=== PATIENT | female | born 1950 | race Caucasian/White ===

== ENCOUNTER → 2017-02-14 | Outpatient (CLI) | payer MEDICARE, MEDICAID ==
[~2017-02-14] MED LIST: ACETAMINOPHEN325 M2 PO; ALBUTEROL-1 PUFF/14. IN; ALDACTONE 50MG50 MG PO; ALLERGY10 MG PO; AMARYL1 MG PO; AMITRIPTYLINE 550 MG PO; AMITRIPTYLINE50 MG PO; AMLODIPINE10 M2 PO; AMOXICILLIN 50500 MG PO; ASPIRIN 81MG TA81 MG PO; ATIVAN GENERIC0.5 MG PO; BAYER ASPIRIN C81 MG PO; BISOPROLOL 5MG T5 MG PO; BISOPROLOL FUMA10 MG PO; BISOPROLOL10 MG PO; BUMETANIDE2 MG PO; BUSPAR 5MG TAB5 MG PO; CARDIZEM CD240 MG PO; CARDIZEM GENERI30 MG PO; CARVEDILOL25 MG PO; CEFTIN250 MG PO; CEFTRIAXONE IV; COUMADIN5 MG PO; COUMADIN7.5 MG PO; COZAAR100 MG PO; DIGITEK0.25 MG PO; DIGITEK125 MCG PO; DIGOX0.125 MG PO; DIGOX0.25 MG PO; DIGOXIN0.125 MG PO; DIGOXIN0.25 MG PO; DILTIAZEM HCL60 MG PO; DOCUSATE SODIU100 MG PO; EPCLUSA 400 MG1 EACH PO; FAMOTIDINE 20MG20 MG PO; FENOFIBRATE160 MG PO; FENTANYL 225 MCG/EAC TP; FERROUS SULFAT325 MG PO; FLEXERIL10 MG PO; FLEXERIL5 MG PO; FLONASE 50 MCG16 GM; FSBS FS; FUROSEMIDE 20MG20 MG PO; FUROSEMIDE40 MG PO; GABAPENTIN300 MG PO; GLIMEPIRIDE 2MG2 MG PO; GLUCOPHAGE1000 MG PO; HABITROL21 MG/24 H TD; HUMALOG100 U/ML SC; HUMULIN R100 UNITS/ SC; HYDROCODONE BIT1 T39 PO; IBUPROFEN800 MG PO; IMDUR 30MG. TAB30 MG PO; INSULIN GL100 UNITS/ SC; KEFLEX 500MG.500 MG PO; LACTULOSE10 GM/15 M PO; LASIX 40MG. TAB40 MG PO; LEVOTHYROXINE0.05 MG PO; LISINOPRIL2.5 M1 PO; LISINOPRIL20 MG PO; LISINOPRIL40 MG PO; LORAZEPAM0.5 MG/TAB PO; LORAZEPAM1 MG/TABLE PO; LORAZEPAM1 POW PO; LOSARTAN POTAS100 MG PO; LOVAZA1 GM PO; LOVENOX 6060 MG/0.6 SC; LYRICA150 M1 PO; LYRICA50 MG PO; METFORMIN1000 MG PO; MIRALAX17 GM/PACK PO; MOTRIN 400MG.400 MG PO; MOTRIN800 MG PO; MULTAQ400 M1 PO; NITROGLYCERIN0.4 MG SL; NORVASC10 MG PO; NOVOLIN 70/30 710 ML SC; NOVOLOG MI100 UNITS/ SC; NYSTATIN SU60 ML/BOT PO; ONDANSETRON 4MG4 M1 PO; OXYCODONE 5MG TA5 MG PO; OXYCODONE HCL10 M1 PO; PAROXETINE20 MG PO; PAXIL20 MG NG; PAXIL40 M1 PO; PEPCID 20MG TAB20 MG PO; PERCOCET 10 MG1 EACH PO; PHENERGAN25 M3 PO; PLAVIX 75MG TAB75 MG PO; POTASSIUM CHLO10 ME3 PO; PREDNISONE 20MG20 MG PO; PREMIERPRO SC; PRILOSEC OTC20 MG PO; PRILOSEC20 M1 PO; PROMETHAZINE W180 ML PO; Prilosec20 MG PO; RISPERDAL 0.20.25 MG PO; ROBITUSSIN10 ML/UDC PO; ROCEPHIN 1 GM VI1 GM IV; ROPINIROLE HYDRO1 MG PO; SPIRONOLACTONE25 MG PO; TIZANIDINE HCL 44 MG PO; TIZANIDINE4 MG PO; TRAMADOL 50MG T1 PAK PO; TRAMADOL 50MG T50 MG PO; TRAMADOL50 M1 PO; TRICOR145 MG NG; TYLENOL ES500 MG PO; VICOPROFEN 7.51 TAB PO; VITAMIN D31000 IU PO; VITAMIN D32000 IU PO; VITAMIN D5000 IU PO; WARFARIN 3MG TAB3 MG PO; WARFARIN SOD5 MG PO; WARFARIN SODIU7.5 MG PO; WARFARIN SODIUM4 MG PO; ZANAFLEX4 MG PO; ZEBETA10 MG PO; ZESTRIL40 M1 PO; ZETIA10 MG PO; [UNRECOGNIZED DRUG - OTHER] OP
[2017-02-14 16:55] LABS: HEMOGLOBIN 12.8 g/dL (12.2-16.2); LYMPH # 3.1 K/mm3 (0.7-4.5); LYMPH % 38.4 % (10-50.0)
[2017-02-14 18:00] LABS: BUN 36 mg/dL (7-18)
[2017-02-14 18:20] LABS: GFR (ESTIMATED) 30 ML/MIN (59-)
== END ==
LOC: LAB 16:31
PROVIDERS: Emergency Medicine
DX: R53.83 Other fatigue (principal)

== ENCOUNTER → 2017-04-12 | Outpatient (CLI) | payer MEDICARE, MEDICAID | LOC: LAB 01:29 | DX: R04.0 Epistaxis (principal) ==

== ENCOUNTER → 2017-04-14 | Outpatient (CLI) | payer MEDICARE, MEDICAID | LOC: LAB 08:21 | DX: Z79.01 Long term (current) use of anticoagulants (principal); Z51.81 Encounter for therapeutic drug level monitoring ==

== ENCOUNTER → 2017-05-03 | Outpatient (CLI) | payer MEDICARE, MEDICAID ==
[~2017-05-03] MED LIST changes: +CLOPIDOGREL75 MG PO; +DILTIAZEM 180180 MG PO; +HUMULIN10 ML SC; +LYRICA200 MG PO; +TRAMADOL 50MG T50 M1 PO; +VANCOCIN125 MG PO; -WARFARIN SODIUM4 MG PO
== END ==
LOC: LAB 07:33
DX: Z79.01 Long term (current) use of anticoagulants (principal); Z51.81 Encounter for therapeutic drug level monitoring

== ENCOUNTER 2017-05-10 20:04 | Inpatient (IN) | payer MEDICARE, MEDICAID ==
[~2017-05-10] VITALS: Ht 165.1 cm; Wt 66.4 kg
[~2017-05-10 20:04] MED LIST changes: -CLOPIDOGREL75 MG PO; -DILTIAZEM 180180 MG PO; -HUMULIN10 ML SC; -TRAMADOL 50MG T50 M1 PO; -VANCOCIN125 MG PO
[2017-05-10 20:08] VITALS: BP 132/86
--- OUTSIDE RECORDS SUMMARY | 2017-05-10 20:28 | External Medical Summary Rpt | CCD ---
Author Author , MANOJ Organization MANOJ Address Unknown Phone [email or web address] Care Team Providers Care Curriculum Assistant Principal Name Role Phone Galen Marcos MD, Unavailable Unavailable Galen TSAI, Unavailable Unavailable Danielle TSAI Purpose Continuity of Care Document - 02-15-2013 through 2016 Problems Code Diagnosis DOS Provider Status [id number] Chest pain [facility] [id number] Diabetes [facility] type 2 [facility] 462 Sore throat [facility] 786.7 [id number] Chronic [facility] B19.20 UNSPECIFIED VIRAL HEPATITIS C WITHOUT HEPATIC COMA E10.9 TYPE 1 DIABETES MELLITUS WITHOUT COMPLICATIO NS E11.9 TYPE 2 DIABETES MELLITUS WITHOUT COMPLICATIO NS E16.2 HYPOGLYCEMI A, UNSPECIFIED E86.0 DEHYDRATION E87.1 HYPO-OSMOLA LITY AND HYPONATREMI A E87.5 HYPERKALEMI A G89.18 OTHER ACUTE POSTPROCEDU RAL PAIN I21.4 NON-ST ELEVATION (NSTEMI) MYOCARDIAL INFARCTION I25.10 ATHSCL HEART DISEASE OF [place] CORONARY ARTERY W/O ANG PCTRS I48.91 UNSPECIFIED ATRIAL FIBRILLATIO N L02.91 CUTANEOUS ABSCESS, UNSPECIFIED M19.031 PRIMARY OSTEOARTHRI TIS, RIGHT WRIST M79.604 PAIN IN RIGHT LEG M79.605 PAIN IN LEFT LEG N12 TUBULO-INTE RSTITIAL NEPHRITIS, NOT SPCF ACUTE OR CHRONIC N30.90 CYSTITIS, UNSPECIFIED WITHOUT HEMATURIA N39.0 URINARY TRACT INFECTION, SITE NOT SPECIFIED R07.89 OTHER CHEST PAIN R07.9 CHEST PAIN, UNSPECIFIED R10.9 UNSPECIFIED ABDOMINAL PAIN R41.0 DISORIENTAT ION, UNSPECIFIED R41.82 ALTERED MENTAL STATUS, UNSPECIFIED R51 HEADACHE R55 SYNCOPE AND COLLAPSE R60.9 EDEMA, UNSPECIFIED R73.9 HYPERGLYCEM IA, UNSPECIFIED R74.8 ABNORMAL LEVELS OF OTHER SERUM ENZYMES R79.1 ABNORMAL COAGULATION PROFILE R79.89 OTHER SPECIFIED ABNORMAL FINDINGS OF BLOOD CHEMISTRY R94.5 ABNORMAL RESULTS OF LIVER FUNCTION STUDIES S00.83XA CONTUSION OF OTHER PART OF HEAD, INITIAL ENCOUNTER S20.212A CONTUSION OF LEFT FRONT WALL OF THORAX, INITIAL ENCOUNTER S36.92XA CONTUSION OF UNSPECIFIED INTRA-ABDOM INAL ORGAN, INIT ENCNTR Z79.01 CORRECTION (CURRENT) USE OF ANTICOAGULA NTS Z95.2 PRESENCE OF PROSTHETIC HEART VALVE Allergies, Adverse Reactions, Alerts Type Drug Allergy Adverse Reaction to Substance Substance Reaction Severity No Known Allergies - Unknown Mild Nka Medications Na ND Rx Da Fi Fi Am Da Di Ph RX Ph St me C No te ll ll ou ys ag ar # ys at rm s nt no ma ic us Or Da si cy ia de te s n re d Ib 62 08 0 No up 58 -2 ro 40 6- Lo fe 74 20 ng n 60 13 er 40 1 0M Ac G ti Ta ve bl et Sa 63 08 0 No li 80 -2 ne 70 6- Lo 10 20 ng Fl 07 13 er us 5 h Ac 10 ti ML ve Sy ri ng e Po 00 08 0 No ta 24 -2 ss 50 6- Lo iu 05 20 ng m 80 13 er Ch 1 lo Ac ri ti de ve 20 ME Q Ta bl e OX 00 08 0 No YC 40 -2 OD 60 6- Lo ON 51 20 ng E- 26 13 er AC 2 ET Ac AM ti IN ve OP HE N 5- 32 5 Vital Signs 02-15-2013 20:12 Name Value Interpretat Reference Comment ion Range BP 70 mm[Hg] Diastolic BP Systolic 152 mm[Hg] Heart 68 /min Rate/Pulse O2% 98 % Respiratory 18 /min Rate 02-15-2013 19:34 Name Value Interpretat Reference Comment ion Range Body 98.3 [degF] Temperature 02-15-2013 17:09 Name Value Interpretat Reference Comment ion Range BP 80 mm[Hg] Diastolic BP Systolic 148 mm[Hg] Heart 79 /min Rate/Pulse O2% 98 % Respiratory 16 /min Rate Results Labs Lab Lab Date Result Refere Interp Status Commen Order Detail nces retati t Range on Whole blood INR measurement (05-03-2017 07:36) Prothro = 72.0 9.4-11. complet mbin 017 SECONDS 8 ed time 07:36 (PT) in platele t poor p Comment: NOTIFICATION RESULT Whole = 6.54 0.9-1.1 complet blood 017 ed INR 07:36 measure ment Comment: NOTIFICATION RESULT Comment: INDICATION INR RANGE Comment: Comment: THERAPY FOR DVT, PE, ATRIAL FIB; 2.0 - 3.0 Comment: PROPHYLAXIS FOR VTE Comment: Comment: THERAPY FOR MECHANICAL HEART 2.5 - 3.5 Comment: VALVE; PREVENTION OF SYSTEMIC Comment: EMBOLISM SECONDARY TO AMI DIARRHEA PANEL,PCR (04-27-2017 20:00) Stool NOT NOT complet Vibrio 017 DETECTE DETECTE ed species 20:00 D NOT DETECTE identif D L ication by o Vibrio NOT NOT complet species 017 DETECTE DETECTE ed 20:00 D NOT nucleic DETECTE acid D L assay by PCR Vibrio NOT NOT complet cholera 017 DETECTE DETECTE ed e DNA 20:00 D NOT detecti DETECTE on by D L probe a Escheri NOT NOT complet sarah 017 DETECTE DETECTE ed coli 20:00 D NOT shiga-l DETECTE kayley D L toxin STX1 a Caliciv NOT NOT complet irus ID 017 DETECTE DETECTE ed 20:00 D NOT DETECTE D L Salmone NOT NOT complet lla 017 DETECTE DETECTE ed species 20:00 D NOT DNA DETECTE detecti D L on by prob Rotavir NOT NOT complet us RNA 017 DETECTE DETECTE ed detecti 20:00 D NOT on by DETECTE probe D L and tar Stool NOT NOT complet Plesiom 017 DETECTE DETECTE ed onas 20:00 D NOT shigell DETECTE oides D L DNA detec Stool DETECTE NOT complet norovir 017 D DETECTE ed us 20:00 DETECTE assay D L Stool NOT NOT complet Giardia 017 DETECTE DETECTE ed 20:00 D NOT lamblia DETECTE D L antigen detecti on Entamoe NOT NOT complet ba 017 DETECTE DETECTE ed histoly 20:00 D NOT shiva DETECTE detecti D L on Escheri NOT NOT complet sarah 017 DETECTE DETECTE ed coli 20:00 D NOT O157 DETECTE stool D L culture Escheri NOT NOT complet sarah 017 DETECTE DETECTE ed coli 20:00 D NOT Shiga-l DETECTE kayley D L toxin 1 assa Escheri NOT NOT complet sarah 017 DETECTE DETECTE ed coli 20:00 D NOT detecti DETECTE on D L E coli NOT NOT complet detecti 017 DETECTE DETECTE ed on 20:00 D NOT DETECTE D L Cyclosp NOT NOT complet ora 017 DETECTE DETECTE ed cayetan 20:00 D NOT esis DETECTE detecti D L on Cryptos NOT NOT complet poridiu 017 DETECTE DETECTE ed m ag 20:00 D NOT detecti DETECTE on D L Stool DETECTE NOT complet Clostri 017 D DETECTE ed dium 20:00 DETECTE diffici D L le A and B toxi Comment: RESULTS CALLED TO: MARGARETTE W 04/28/17 1838 O'Kathleen Madsen Campylo NOT NOT complet bacter 017 DETECTE DETECTE ed antibod 20:00 D NOT y assay DETECTE D L Astrovi NOT NOT complet ely 017 DETECTE DETECTE ed detecti 20:00 D NOT on DETECTE D L Aeromon NOT NOT complet as 017 DETECTE DETECTE ed salmoni 20:00 D NOT luis carlos DETECTE detecti D L on Stool NOT NOT complet adenovi 017 DETECTE DETECTE ed ely 40 20:00 D NOT and 41 DETECTE antigen D L assay Whole blood INR measurement (04-20-2017) Prothro = 27.2 9.4-11. complet mbin 017 SECONDS 8 ed time (PT) in platele t poor p Whole = 2.49 0.9-1.1 complet blood 017 ed INR measure ment Comment: INDICATION INR RANGE Comment: Comment: THERAPY FOR DVT, PE, ATRIAL FIB; 2.0 - 3.0 Comment: PROPHYLAXIS FOR VTE Comment: Comment: THERAPY FOR MECHANICAL HEART 2.5 - 3.5 Comment: VALVE; PREVENTION OF SYSTEMIC Comment: EMBOLISM SECONDARY TO AMI Whole blood INR measurement (04-14-2017) Prothro = 23.1 9.4-11. complet mbin 017 SECONDS 8 ed time (PT) in platele t poor p Whole = 2.12 0.9-1.1 complet blood 017 ed INR measure ment Comment: INDICATION INR RANGE Comment: Comment: THERAPY FOR DVT, PE, ATRIAL FIB; 2.0 - 3.0 Comment: PROPHYLAXIS FOR VTE Comment: Comment: THERAPY FOR MECHANICAL HEART 2.5 - 3.5 Comment: VALVE; PREVENTION OF SYSTEMIC Comment: EMBOLISM SECONDARY TO AMI Whole blood INR measurement (04-12-2017 01:00) Prothro = 40.7 9.4-11. complet mbin 017 SECONDS 8 ed time 01:00 (PT) in platele t poor p Whole = 3.72 0.9-1.1 complet blood 017 ed INR 01:00 measure ment Comment: INDICATION INR RANGE Comment: Comment: THERAPY FOR DVT, PE, ATRIAL FIB; 2.0 - 3.0 Comment: PROPHYLAXIS FOR VTE Comment: Comment: THERAPY FOR MECHANICAL HEART 2.5 - 3.5 Comment: VALVE; PREVENTION OF SYSTEMIC Comment: EMBOLISM SECONDARY TO AMI COMPREHENSIVE METABOLIC PANEL (02-15-2013 18:10) Glucose 67 74-106 complet 013 mg/dL ed Bld-mCn 18:10 c BUN 13 7-18 complet Bld-mCn 013 mg/dL ed c 18:10 Creat 0.9 0.6-1.0 complet SerPl-m 013 mg/dL ed Cnc 18:10 ESTIMAT 48 50-200 complet ED 013 ML/MIN ed CREATIN 18:10 INE CLEARAN CE GFR 63 59- complet (ESTIMA 013 ML/MIN ed GILDARDO) 18:10 Sodium 139 136-145 complet SerPl-s 013 mmoL/L ed Cnc 18:10 Potassi 3.2 3.5-5.1 complet um 013 mmoL/L ed SerPl-s 18:10 Cnc Chlorid 103 98-107 complet e 013 mmoL/L ed SerPl-s 18:10 Cnc CO2 02-15-2 30 21.0-32 complet SerPl-s 013 mmoL/L .0 ed Cnc 18:10 Calcium 02-15-2 8.9 8.5-10. complet 013 mg/dL 1 ed SerPl-m 18:10 Cnc Prot 02-15-2 7.8 6.4-8.2 complet SerPl-m 013 gm/dL ed Cnc 18:10 Albumin 02-15-2 3.2 3.4-5.0 complet 013 gm/dL ed SerPl-m 18:10 Cnc Globuli 2 4.6 1.3-3.2 complet n 013 gm/dL ed Ser-mCn 18:10 c Albumin 2 0.7 UNK 1.1-1.8 complet /Glob 013 ed SerPl-m 18:10 Rto Bilirub 0.5 0.2-1.0 complet 013 mg/dL ed SerPl-m 18:10 Cnc AST 14 U/L 15-37 complet SerPl-c 013 ed Cnc 18:10 ALT 31 U/L 30-65 complet SerPl-c 013 ed Cnc 18:10 ALP 2 124 U/L 50-136 complet SerPl-c 013 ed Cnc 18:10 PROTIME/INR (02-15-2013 18:10) PROTHRO 02-15-2 12.4 9.9-11. complet MBIN 013 SECONDS 6 ed TIME 18:10 INR Bld 1.16 0.9-1.1 complet 013 UNK ed 18:10 Encounters Encounter Start End Date Code Location Performer Type Date Emergency LINA REED (ER) 3 16:19 3 20:12 [facility] GINO
--- OUTSIDE RECORDS SUMMARY | 2017-05-10 20:28 | External Medical Summary Rpt | CCD ---
Author Author , MANOJ ARANDA Address Unknown Phone [email or web address] Now Immunization Name Date Rout CVX Reac Dose Comm Prov Is Faci e tion ent ider Refu lity Give sed n PPV2 07-1 33 0.5 Hist [facility] 3 0-20 mL oric 1 1 16 al Info rmat ion - Sour ce Unsp ecif ied
--- OUTSIDE RECORDS SUMMARY | 2017-05-10 20:28 | External Medical Summary Rpt | CCD ---
Author Author , MANOJ ARANDA Address Unknown Phone [email or web address] Immunization Name Date Rout CVX Reac Dose Comm Prov Is Faci e tion ent ider Refu lity Give sed n PPV2 07-1 33 0.5 Hist [facility] No [facility] 3 0-20 mL oric 1 1 16 al Info rmat ion - Sour ce Unsp ecif ied
--- OUTSIDE RECORDS SUMMARY | 2017-05-10 20:28 | External Medical Summary Rpt | CCD ---
Author Author , MANOJ Organization MANOJ Address Unknown Phone .[email or web address] Care Team Providers Care Research Program Internship Name Role Phone Galen Marcos MD, Unavailable Unavailable Galen TSAI, Unavailable Unavailable Danielle TSAI Purpose Continuity of Care Document - 02-15-2013 through 2016 Problems Code Diagnosis DOS Provider Status [id number] Chest pain [facility] [id number] Diabetes [facility] type 2 [facility] 462 Sore throat [facility] 786.7 [id number] Chronic [facility] B19.20 UNSPECIFIED VIRAL HEPATITIS C WITHOUT HEPATIC COMA E10.9 TYPE 1 DIABETES MELLITUS WITHOUT COMPLICATIO NS E11.9 TYPE 2 DIABETES MELLITUS WITHOUT COMPLICATIO NS E16.2 HYPOGLYCEMI A, UNSPECIFIED E86.0 DEHYDRATION E87.1 HYPO-OSMOLA LITY AND HYPONATREMI A E87.5 HYPERKALEMI A G89.18 OTHER ACUTE POSTPROCEDU RAL PAIN I21.4 NON-ST ELEVATION (NSTEMI) MYOCARDIAL INFARCTION I25.10 ATHSCL HEART DISEASE OF [place] CORONARY ARTERY W/O ANG PCTRS I48.91 UNSPECIFIED [...] UNSPECIFIED INTRA-ABDOM INAL ORGAN, INIT ENCNTR Z79.01 ALF (CURRENT) USE OF ANTICOAGULA NTS Z95.2 PRESENCE [...] LINA REED (ER) 3 16:19 3 20:12 [facility] G[place]
--- OUTSIDE RECORDS SUMMARY | 2017-05-10 20:32 | External Medical Summary Rpt ---
Author Author [employer], [facility] Address Unknown Phone Unavailable Results INR in Blood by Coagulation assay Observa Value Referen Units Interpr Notes Date tion ce etation Range INR in 0.9 - 1.1 No High May 03 Blood by informati NOTIFICAT 2017 7:36 Coagulati on in ION AM on assay source RESULT data INDIC ATION INR RANGETHER APY FOR DVT, PE, ATRIAL FIB; 2.0 - 3.0PROPHY LAXIS FOR VTETHERAP Y FOR MECHANICA L HEART 2.5 - 3.5VALVE; PREVENTIO N OF SYSTEMICE MBOLISM SECONDARY TO AMI Prothromb 9.4 - SECONDS High May 03 in time 11.8 NOTIFICAT 2017 7:36 (PT) in ION AM Platelet RESULT poor plasma by Coagulati on assay DIARRHEA PANEL,PCR Observa Value Referen Units Interpr Notes Date tion ce etation Range Adenovi NOT NOT No No No Nov 5 ely DETECTE DETECTE informa informa informa 2016 40+41 D tion in tion in tion in 8:00 PM Ag source source source [Presen data data data ce] in Stool Aeromon NOT NOT No No No Nov 5 as DETECTE DETECTE informa informa informa 2016 salmoni D tion in tion in tion in 8:00 PM luis carlos source source source [Presen data data data ce] in Unspeci fied specime n Astrovi NOT NOT No No No Nov 5 ely DETECTE DETECTE informa informa informa 2017 [Presen D tion in tion in tion in 8:00 PM ce] in source source source Stool data data data by Electro n microsc opy Campylo NOT NOT No No No Nov 5 bacter DETECTE DETECTE informa informa informa 2016 sp Ab D tion in tion in tion in 8:00 PM [Presen source source source ce] in data data data Serum Clostri DETECTE NOT No Abnorma RESULTS Nov 5 dium D DETECTE informa l CALLED 2017 diffici tion in TO: 8:00 PM le source MARGARETTE toxin data W A+B [Presen 7 1838 ce] in [place], Stool Kathleen Cryptos NOT NOT No No No Nov 5 poridiu DETECTE DETECTE informa informa informa 2017 m sp Ag D tion in tion in tion in 8:00 PM source source source [Presen data data data ce] in Unspeci fied specime n Cyclosp NOT NOT No No No Nov 5 ora DETECTE DETECTE informa informa informa 2017 cayetan D tion in tion in tion in 8:00 PM stephanie source source source [Presen data data data ce] in Unspeci fied specime n Escheri NOT NOT No No No Nov 5 sarah DETECTE DETECTE informa informa informa 2017 coli D tion in tion in tion in 8:00 PM [Presen source source source ce] in data data data Unspeci fied specime n by Culture FDA method Escheri NOT NOT No No No Nov 5 sarah DETECTE DETECTE informa informa informa 2017 coli D tion in tion in tion in 8:00 PM [Presen source source source ce] in data data data Unspeci fied specime n by Culture FDA method Escheri NOT NOT No No No Nov 5 sarah DETECTE DETECTE informa informa informa 2017 coli D tion in tion in tion in 8:00 PM Shiga-l source source source kayley data data data toxin 1 assa Escheri NOT NOT No No No Nov 5 sarah DETECTE DETECTE informa informa informa 2017 coli D tion in tion in tion in 8:00 PM [id number] source source source data data data [Presen ce] in Stool by Organis m specifi c culture Entamoe NOT NOT No No No Nov 5 ba DETECTE DETECTE informa informa informa 2017 histoly D tion in tion in tion in 8:00 PM shiva source source source [Presen data data data ce] in Stool by Trichro me stain Giardia NOT NOT No No No Nov 5 DETECTE DETECTE informa informa informa 2017 lamblia D tion in tion in tion in 8:00 PM Ag source source source [Presen data data data ce] in Stool Norovir DETECTE NOT No Abnorma No Nov 5 us Ag D DETECTE informa l informa 2017 [Presen tion in tion in 8:00 PM ce] in source source Stool data data Stool NOT NOT No No No Nov 5 Plesiom DETECTE DETECTE informa informa informa 2017 onas D tion in tion in tion in 8:00 PM shigell source source source oides data data data DNA detec Rotavir NOT NOT No No No Nov 5 us RNA DETECTE DETECTE informa informa informa 2017 detecti D tion in tion in tion in 8:00 PM on by source source source probe data data data and tar Salmone NOT NOT No No No Nov 5 lla sp DETECTE DETECTE informa informa informa 2017 DNA D tion in tion in tion in 8:00 PM [Identi source source source fier] data data data in Unspeci fied specime n by Probe & target amplifi cation method Caliciv NOT NOT No No No Nov 5 irus DETECTE DETECTE informa informa informa 2017 [Identi D tion in tion in tion in 8:00 PM fier] source source source in data data data Stool by Electro n microsc opy Escheri NOT NOT No No No Nov 5 sarah DETECTE DETECTE informa informa informa 2017 coli D tion in tion in tion in 8:00 PM [Presen source source source ce] in data data data Unspeci fied specime n by Culture FDA method Escheri NOT NOT No No No Nov 5 sarah DETECTE DETECTE informa informa informa 2017 coli D tion in tion in tion in 8:00 PM SXT source source source gene+H7 data data data gene [Identi fier] in Unspeci fied specime n by Probe & target amplifi cation method Vibrio NOT NOT No No No Nov 5 cholera DETECTE DETECTE informa informa informa 2017 e DNA D tion in tion in tion in 8:00 PM [Presen source source source ce] in data data data Unspeci fied specime n by Probe & target amplifi cation method Vibrio NOT NOT No No No Nov 5 sp DNA DETECTE DETECTE informa informa informa 2016 [Identi D tion in tion in tion in 8:00 PM fier] source source source in data data data Unspeci fied specime n by Probe & target amplifi cation method Vibrio NOT NOT No No No Nov 5 sp DETECTE DETECTE informa informa informa 2016 identif D tion in tion in tion in 8:00 PM ied in source source source Stool data data data by Halley m nikita c culture INR in Blood by Coagulation assay Observa Value Referen Units Interpr Notes Date tion ce etation Range INR in 0.9 - 1.1 No High INDICATIO Apr 20 Blood by informati N 2016 Coagulati on in on assay source INR data RANGETHER APY FOR DVT, PE, ATRIAL FIB; 2.0 - 3.0PROPHY LAXIS FOR VTETHERAP Y FOR MECHANICA L HEART 2.5 - 3.5VALVE; PREVENTIO N OF SYSTEMICE MBOLISM SECONDARY TO AMI Prothromb 9.4 - SECONDS High No Apr 20 in time 11.8 informati 2016 (PT) in on in Platelet source poor data plasma by Coagulati on assay INR in Blood by Coagulation assay Observa Value Referen Units Interpr Notes Date tion ce etation Range INR in 0.9 - 1.1 No High INDICATIO Apr 14 Blood by informati N 2016 Coagulati on in on assay source INR data RANGETHER APY FOR DVT, PE, ATRIAL FIB; 2.0 - 3.0PROPHY LAXIS FOR VTETHERAP Y FOR MECHANICA L HEART 2.5 - 3.5VALVE; PREVENTIO N OF SYSTEMICE MBOLISM SECONDARY TO AMI Prothromb 9.4 - SECONDS High No Apr 14 in time 11.8 informati 2016 (PT) in on in Platelet source poor data plasma by Coagulati on assay INR in Blood by Coagulation assay Observa Value Referen Units Interpr Notes Date tion ce etation Range INR in 0.9 - 1.1 No High INDICATIO Apr 12 Blood by informati N 2016 1:00 Coagulati on in AM on assay source INR data RANGETHER APY FOR DVT, PE, ATRIAL FIB; 2.0 - 3.0PROPHY LAXIS FOR VTETHERAP Y FOR MECHANICA L HEART 2.5 - 3.5VALVE; PREVENTIO N OF SYSTEMICE MBOLISM SECONDARY TO AMI Prothromb 9.4 - SECONDS High No Apr 12 in time 11.8 informati 2017 1:00 (PT) in on in AM Platelet source poor data plasma by Coagulati on assay Comprehensive metabolic 2000 panel in Serum or Plasma Observa Value Referen Units Interpr Notes Date tion ce etation Range Albumin/G 1.1 - 1.8 No Low No Feb 14 lobulin informati informati 2016 3:00 [Mass on in on in PM ratio] in source source Serum or data data Plasma Albumin 3.4 - 5.0 gm/dL Normal No Feb 14 [Mass/vol informati 2016 3:00 ume] in on in PM Serum or source Plasma data Alkaline 46 - 116 U/L High No Feb 14 phosphata informati 2016 3:00 se on in PM [Enzymati source c data activity/ volume] in Serum or Plasma Bilirubin 0.2 - 1.0 mg/dL Normal No Feb 14 .total informati 2016 3:00 [Mass/vol on in PM ume] in source Serum or data Plasma Urea 7 - 18 mg/dL High No Feb 14 nitrogen informati 2016 3:00 [Mass/vol on in PM ume] in source Serum or data Plasma Calcium 8.5 - mg/dL Normal No Feb 14 [Mass/vol 10.1 informati 2016 3:00 ume] in on in PM Serum or source Plasma data Chloride 98 - 107 mmoL/L Low No Feb 14 [Moles/vo informati 2016 3:00 lume] in on in PM Serum or source Plasma data Carbon 21.0 - mmoL/L Normal No Feb 14 dioxide, 32.0 informati 2016 3:00 total on in PM [Moles/vo source lume] in data Serum or Plasma Creatinin 0.55 - mg/dL High No Feb 14 e 1.02 informati 2016 3:00 [Mass/vol on in PM ume] in source Serum or data Plasma Estimated 59- ML/MIN Low REFERENCE Feb 14 RANGE: 2016 3:00 glomerula >60 PM r ML/MIN/1. filtratio 73 SQUARE n rate METERSIf (GF this patient is -A merican, then multiply theresult by 1.210. Globulin 1.3 - 3.2 gm/dL High No Feb 14 [Mass/vol informati 2016 3:00 ume] in on in PM Serum source data Glucose 74 - 106 mg/dL High No Feb 14 [Mass/vol informati 2016 3:00 ume] in on in PM Serum or source Plasma data Potassium 3.5 - 5.1 mmoL/L Normal No Feb 142016 3:00 [Moles/vo on in PM lume] in source Serum or data Plasma Sodium 136 - 145 mmoL/L Low No Feb 14 [Moles/vo 2016 3:00 lume] in on in PM Serum or source Plasma data Aspartate 15 - 37 U/L Normal No Feb 142016 3:00 aminotran on in PM sferase source [Enzymati data c activity/ volume] in Serum or Plasma Alanine 12 - 78 U/L Normal No Feb 14 aminotran 2016 3:00 sferase on in PM [Enzymati source c data activity/ volume] in Serum or Plasma Protein 6.4 - 8.2 gm/dL High No Feb 14 [Mass/vol informati 2016 3:00 ume] in on in PM Serum or source Plasma data CBC W Auto Differential panel in Blood Observa Value Referen Units Interpr Notes Date tion ce etation Range Basophils 0 - 0.2 K/MM3 Normal No Feb 142016 3:00 [#/volume on in PM ] in source Blood by data Automated count Basophils 0.1 - 2.0 % Normal No Feb 142016 3:00 leukocyte on in PM s in source Blood by data Automated count Eosinophi 0.0 - 0.4 K/mm3 Normal No Feb 14 ls 2016 3:00 [#/volume on in PM ] in source Blood by data Automated count Eosinophi 0.1 - % Normal Feb 14 ls/100 12.0 informati 2016 3:00 leukocyte on in PM s in source Blood by data Automated count Granulocy 1.8 - 7.8 K/mm3 Normal No Feb 14 brynn ati 2016 3:00 [#/volume on in PM ] in source Blood by data Automated count Granulocy 37.0 - % Normal No Feb 14 brynn/100 80.0 informati 2016 3:00 leukocyte on in PM s in source Blood by data Automated count Hematocri 37.0 - % Normal Feb 14 t [Volume 47.0 ati 2016 3:00 on in PM Fraction] source of Blood data Hemoglobi 12.2 - g/dL No Feb 14 n 16.2 informati informati 2016 3:00 [Mass/vol on in on in PM ume] in source source Blood data data Lymphocyt 0.7 - 4.5 K/mm3 Normal No Feb 14 es inform2016 3:00 [#/volume on in PM ] in source Unspecifi data ed specimen by Automated count Lymphocyt 10 - 50.0 % Normal No Feb 14 es inform2016 3:00 [#/volume on in PM ] in source Unspecifi data ed specimen by Automated count Erythrocy 27 - 31.2 pg Low No Feb 14 te mean inform2016 3:00 corpuscul on in PM ar source hemoglobi data n [Entitic mass] Erythrocy 31.8 - g/dl Low No Feb 14 te mean 35.4 inform2016 3:00 corpuscul on in PM ar source hemoglobi data n concentra tion [Mass/vol ume] by Automated count Erythrocy 82.2 - fl Normal No Feb 14 te mean 97.8 informati 2016 3:00 corpuscul on in PM ar volume source [Entitic data volume] by Automated count Monocytes 0.1 - 1.0 K/mm3 Normal No Feb 14 inform2016 3:00 [#/volume on in PM ] in source Blood by data Automated count Monocytes 1.7 - 9.3 % Normal No Feb 14 /100 inform2016 3:00 leukocyte on in PM s in source Blood by data Automated count Platelet 7.4 - fl Normal No Feb 14 mean 10.4 inform2016 3:00 volume on in PM [Entitic source volume] data in Blood by Automated count Platelets 142 - 424 K/mm3 Normal No Feb 14 inform2016 3:00 [#/volume on in PM ] in source Blood data Erythrocy 4.2 - 5.4 M/mm3 Normal No Feb 14 brynn informati 2016 3:00 [#/volume on in PM ] in source Amniotic data fluid Erythrocy 11.5 - % Normal No Feb 14 te 17.5 informati 2016 3:00 distribut on in PM ion width source [Entitic data volume] by Automated count Leukocyte 4.8 - K/MM3 Normal No Feb 14 s 10.8 informati 2016 3:00 [#/volume on in PM ] in source Blood data Drugs identified in Urine by Screen method Observa Value Referen Units Interpr Notes Date tion ce etation Range Positive urine drug screen samples are stored for 7 days. Contact the Lab if confirmation of positives is needed. Ampheta NEGATIV <1000 ng/mL No No Feb 10 mine E informa informa 2017 [Presen tion in tion in ce] in source source Urine data data by Screen method Barbitura <200 ng/mL No No Feb 10 brynn informati informati 2017 [Mass/vol on in on in ume] in source source Urine by data data Screen method Benzodiaz 200 ng/mL ng/mL No No Feb 10 epines informati informati 2016 [Mass/vol on in on in ume] in source source Serum or data data Plasma by Screen method Cocaine <300 ng/g No No Feb 10 [Mass/vol informati informati 2016 ume] in on in on in Unspecifi source source ed data data specimen Methadone <300 ng/mL No No Feb 10 informati informati 2017 [Mass/vol on in on in ume] in source source Unspecifi data data ed specimen Opiates <300 ng/mL No No Feb 10 [Mass/vol informati informati 2016 ume] in on in on in Unspecifi source source ed data data specimen Phencycli <25 ng/mL No No Feb 10 dine informati informati 2016 [Mass/vol on in on in ume] in source source Unspecifi data data ed specimen 11-Hydr NEGATIV <50 ng/mL No No Feb 10 oxy E informa informa 2017 delta-9 tion in tion in source source tetrahy data data drocann abinol [Presen ce] in Unspeci fied specime n Glucose [Mass/volume] in Capillary blood by Glucometer Observa Value Referen Units Interpr Notes Date tion ce etation Range Glucose 70 - 110 mg/dl High No Jan 03 [Mass/vol informati 2016 ume] in on in 11:46 AM Capillary source blood by data Glucomete r INR in Blood by Coagulation assay Observa Value Referen Units Interpr Notes Date tion ce etation Range IS PATIENT ON ANTICOAGULANTS? Y LIST ANTICOAGULANTS: COUMADIN INR in 0.9 - 1.1 No High INDICATIO Jan 03 Blood by informati N 2016 9:38 Coagulati on in AM on assay source INR data RANGETHER APY FOR DVT, PE, ATRIAL FIB; 2.0 - 3.0PROPHY LAXIS FOR VTETHERAP Y FOR MECHANICA L HEART 2.5 - 3.5VALVE; PREVENTIO N OF SYSTEMICE MBOLISM SECONDARY TO AMI Prothromb 9.4 - SECONDS High No Jan 03 in time 11.8 informati 2017 9:38 (PT) in on in AM Platelet source poor data plasma by Coagulati on assay Glucose [Mass/volume] in Capillary blood by Glucometer Observa Value Referen Units Interpr Notes Date tion ce etation Range Glucose 70 - 110 mg/dl High No Dec 14 [Mass/vol informati 2016 6:06 ume] in on in AM Capillary source blood by data Glucomete r Glucose [Mass/volume] in Capillary blood by Glucometer Observa Value Referen Units Interpr Notes Date tion ce etation Range Glucose 70 - 110 mg/dl High No Jan 02 [Mass/vol informati 2016 8:56 ume] in on in PM Capillary source blood by data Glucomete r Glucose [Mass/volume] in Capillary blood by Glucometer Observa Value Referen Units Interpr Notes Date tion ce etation Range Glucose 70 - 110 mg/dl High No Jan 02 [Mass/vol informati 2016 5:18 ume] in on in PM Capillary source blood by data Glucomete r Glucose [Mass/volume] in Capillary blood by Glucometer Observa Value Referen Units Interpr Notes Date tion ce etation Range Glucose 70 - 110 mg/dl High No Jan 02 [Mass/vol informati 2016 ume] in on in 12:16 PM Capillary source blood by data Glucomete r INR in Blood by Coagulation assay Observa Value Referen Units Interpr Notes Date tion ce etation Range IS PATIENT ON ANTICOAGULANTS? Y LIST ANTICOAGULANTS: WARFARIN ENOXAPARIN PTT RESULTS MUST BE CALLED IF PT ON HEPARIN!!! Y INR in 0.9 - 1.1 No High INDICATIO Jan 02 Blood by informati N 2016 8:54 Coagulati on in AM on assay source INR data RANGETHER APY FOR DVT, PE, ATRIAL FIB; 2.0 - 3.0PROPHY LAXIS FOR VTETHERAP Y FOR MECHANICA L HEART 2.5 - 3.5VALVE; PREVENTIO N OF SYSTEMICE MBOLISM SECONDARY TO AMI Prothromb 9.4 - SECONDS High No Jan 02 in time 11.8 informati 2017 8:54 (PT) in on in AM Platelet source poor data plasma by Coagulati on assay Glucose [Mass/volume] in Capillary blood by Glucometer Observa Value Referen Units Interpr Notes Date tion ce etation Range Glucose 70 - 110 mg/dl High No Jan 02 [Mass/vol informati 2016 6:39 ume] in on in AM Capillary source blood by data Glucomete r Basic metabolic panel in Blood Observa Value Referen Units Interpr Notes Date tion ce etation Range Urea 7 - 18 mg/dL High No Jan 02 nitrogen informati 2016 5:25 [Mass/vol on in AM ume] in source Serum or data Plasma Calcium 8.5 - mg/dL Normal No Jan 02 [Mass/vol 10.1 informati 2016 5:25 ume] in on in AM Serum or source Plasma data Chloride 98 - 107 mmoL/L Normal No Jan 02 [Moles/vo informati 2016 5:25 lume] in on in AM Serum or source Plasma data Carbon 21.0 - mmoL/L Normal No Jan 02 dioxide, 32.0 informati 2016 5:25 total on in AM [Moles/vo source lume] in data Serum or Plasma Creatinin 0.55 - mg/dL No No Jan 02 e 1.02 informati informati 2016 5:25 [Mass/vol on in on in AM ume] in source source Serum or data data Plasma Creatinin 50 - 200 ML/MIN No No Jan 02 e renal informati informati 2016 5:25 clearance on in on in AM source source predicted data data by Cockcroft -Gault formula Estimated 59- ML/MIN Low REFERENCE Jan 02 RANGE: 2017 5:25 glomerula >60 AM r ML/MIN/1. filtratio 73 SQUARE n rate METERSIf (GF this patient is -A merican, then multiply theresult by 1.210. Glucose 74 - 106 mg/dL High No Jan 02 [Mass/vol informati 2016 5:25 ume] in on in AM Serum or source Plasma data Potassium 3.5 - 5.1 mmoL/L Normal No Jan 02 informati 2016 5:25 [Moles/vo on in AM lume] in source Serum or data Plasma Sodium 136 - 145 mmoL/L Normal No Jan 02 [Moles/vo informati 2016 5:25 lume] in on in AM Serum or source Plasma data Glucose [Mass/volume] in Capillary blood by Glucometer Observa Value Referen Units Interpr Notes Date tion ce etation Range Glucose 70 - 110 mg/dl High No Jan 01 [Mass/vol informati 2016 ume] in on in 10:12 PM Capillary source blood by data Glucomete r Glucose [Mass/volume] in Capillary blood by Glucometer Observa Value Referen Units Interpr Notes Date tion ce etation Range Glucose 70 - 110 mg/dl High No Jan 01 [Mass/vol informati 2016 5:25 ume] in on in PM Capillary source blood by data Glucomete r Glucose [Mass/volume] in Capillary blood by Glucometer Observa Value Referen Units Interpr Notes Date tion ce etation Range Glucose 70 - 110 mg/dl High No Jan 01 [Mass/vol informati 2016 ume] in on in 12:17 PM Capillary source blood by data Glucomete r Activated clotting time in Blood by Coagulation assay Observa Value Referen Units Interpr Notes Date tion ce etation Range Activated 74 - 125 SEC High No Jan 01 clotting alert informati 2017 time in on in 10:42 AM Blood by source Coagulati data on assay INR in Blood by Coagulation assay Observa Value Referen Units Interpr Notes Date tion ce etation Range IS PATIENT ON ANTICOAGULANTS? Y LIST ANTICOAGULANTS: ENOXAPARIN INR in 0.9 - 1.1 No High INDICATIO Jan 01 Blood by informati N 2017 6:15 Coagulati on in AM on assay source INR data RANGETHER APY FOR DVT, PE, ATRIAL FIB; 2.0 - 3.0PROPHY LAXIS FOR VTETHERAP Y FOR MECHANICA L HEART 2.5 - 3.5VALVE; PREVENTIO N OF SYSTEMICE MBOLISM SECONDARY TO AMI Prothromb 9.4 - SECONDS High No Jan 01 in time 11.8 informati 2017 6:15 (PT) in on in AM Platelet source poor data plasma by Coagulati on assay Glucose [Mass/volume] in Capillary blood by Glucometer Observa Value Referen Units Interpr Notes Date tion ce etation Range Glucose 70 - 110 mg/dl High No Jan 01 [Mass/vol informati 2016 6:10 ume] in on in AM Capillary source blood by data Glucomete r Glucose [Mass/volume] in Capillary blood by Glucometer Observa Value Referen Units Interpr Notes Date ti ce etation Range Glucose 70 - 110 mg/dl High No Dec 31 [Mass/vol informati 2016 8:59 ume] in on in PM Capillary source blood by data Glucomete r Glucose [Mass/volume] in Capillary blood by Glucometer Observa Value Referen Units Interpr Notes Date ti etation Range Glucose 70 - 110 mg/dl High No Dec 31 [Mass/vol alert informati 2016 4:54 ume] in on in PM Capillary source blood by data Glucomete r Angiotensin converting enzyme [Enzymatic activity/volume] in Serum or Plasma Observa Value Referen Units Interpr Notes Date ti ce etation Range Angiotens 14 - 82 U/L No Performed Dec 31 in informati at: CB 2016 4:01 convertin on in - [facility] PM g enzyme source [Enzymati data [id number] c [address] activity/ Road, volume] [place], in Serum [place] or Plasma [id number] Specimen Preparation Assistant: Juan Hawk PhD, Phone: [phone] Cobalamin (Vitamin B12) [Mass/volume] in Serum Observa Value Referen Units Interpr Notes ti ce etation Range Cobalamin 211 - 946 pg/mL No Performed Dec 31 (Vitamin informati at: CB 2016 4:01 B12) on in - [facility] PM [Mass/vol source ume] in data [id number], [place], [place] [id number] Specimen Preparation Assistant: Juan Hawk PhD, Phone: [phone] Folate [Mass/volume] in Serum or Plasma Observa Value Referen Units Interpr Notes ti ce etation Range Folate >3.0 ng/mL No A serum Dec 31 [Mass/vol informati folate 2016 4:01 ume] in on in concentra PM Serum or source tion of Plasma data less than 3.1 ng/mL isconside red to represent clinical deficienc y. Protein Electrophoresis Observa Value Referen Units Interpr Notes Date ti ce etation Range Protein 6.0 - 8.5 g/dL No No Dec 31 [Mass/vol informati informati 2016 4:01 ume] in on in on in PM Serum or source source Plasma data data Please Comment . No No Protein Dec 31 note: informa informa 2017 tion in tion in electro 4:01 PM source source phoresi data data s scan will follow via compute r,mail, or infection prevention specialist deliver Lacy rmed at: - [facility] [id number] Directo r: Juan acevedo PhD, Phone: [phone] Albumin 2.9 - 4.4 g/dL Low No Dec 31 [Mass/vol informati 2016 4:01 ume] in on in PM Serum or source Plasma by data Electroph oresis Alpha 1 0.0 - 0.4 g/dL No No Dec 31 globulin informati informati 2016 4:01 [Mass/vol on in on in PM ume] in source source Serum or data data Plasma by Electroph oresis Alpha 2 0.4 - 1.0 g/dL No No Dec 31 globulin informati informati 2016 4:01 [Mass/vol on in on in PM ume] in source source Serum or data data Plasma by Electroph oresis Beta 0.7 - 1.3 g/dL High No Dec 31 globulin informati 2016 4:01 [Mass/vol on in PM ume] in source Serum or data Plasma by Electroph oresis Gamma 0.4 - 1.8 g/dL High No Dec 31 globulin informati 2017 4:01 [Mass/vol on in PM ume] in source Serum or data Plasma by Electroph oresis Protein.m Not g/dL No No Dec 31 onoclonal Observed informati informati 2016 4:01 on in on in PM [Mass/vol source source ume] in data data Serum or Plasma by Electroph oresis Globulin 2.2 - 3.9 g/dL High No Dec 31 [Mass/vol informati 2017 4:01 ume] in on in PM Serum by source calculati data on Albumin/G 0.7 - 1.7 No Low No Dec 31 lobulin informati informati 2016 4:01 [Mass on in on in PM ratio] in source source Serum or data data Plasma Hemoglobin A1c in Blood Observa Value Referen Units Interpr Notes Date tion ce etation Range Hemoglo 10.0 0.0 - % High < 6% Dec 31 bin A1c 7.0 NON-CHERYL 2017 in BETIC 4:01 PM Blood LEVEL< 7% CONTROL LED DIABETI C LEVEL> 8% POORLY CONTROL LED DIABETI C LEVEL INR in Blood by Coagulation assay Observa Value Referen Units Interpr Notes Date tion ce etation Range IS PATIENT ON ANTICOAGULANTS? Y LIST ANTICOAGULANTS: COUMADIN INR in 0.9 - 1.1 No High INDICATIO Dec 31 Blood by informati N 2016 2:30 Coagulati on in PM on assay source INR data RANGETHER APY FOR DVT, PE, ATRIAL FIB; 2.0 - 3.0PROPHY LAXIS FOR VTETHERAP Y FOR MECHANICA L HEART 2.5 - 3.5VALVE; PREVENTIO N OF SYSTEMICE MBOLISM SECONDARY TO AMI Prothromb 9.4 - SECONDS High No Dec 31 in time 11.8 informati 2017 2:30 (PT) in on in PM Platelet source poor data plasma by Coagulati on assay Glucose [Mass/volume] in Capillary blood by Glucometer Observa Value Referen Units Interpr Notes Date ti etation Range Glucose 70 - 110 mg/dl High No Dec 31 [Mass/vol alert informati 2017 ume] in on in 11:35 AM Capillary source blood by data Glucomete r Glucose [Mass/volume] in Capillary blood by Glucometer Observa Value Referen Units Interpr Notes Date ti etation Range Glucose 70 - 110 mg/dl High No Dec 31 [Mass/vol informati 2017 6:36 ume] in on in AM Capillary source blood by data Glucomete r Troponin I.cardiac [Mass/volume] in Serum or Plasma Observa Value Referen Units Interpr Notes Date ti ce etation Range Troponin 0.00 - ng/mL High 0.04 - Dec 31 I.cardiac 0.06 0.49 IS 2017 6:28 AN AM [Mass/vol INDETERMI ume] in NANT Serum or ZONEAnd Plasma can be consisten t with the following diseases: Trauma Criticall y ill patients Quiñones >30% TBSACHF Hypothyro idism Amyloidos isHyperte nsion Myocardit is SepsisHyp otension Rhabdomyo lysis Vital exhaust.P ostop surgery Pulmonary embolism CVARenal failure Acute neurologi cordell disease Atrial fib. Basic metabolic panel in Blood Observa Value Referen Units Interpr Notes Date ti ce etation Range Urea 7 - 18 mg/dL High No Dec 31 nitrogen informati 2016 6:28 [Mass/vol on in AM ume] in source Serum or data Plasma Calcium 8.5 - mg/dL Normal No Dec 31 [Mass/vol 10.1 informati 2017 6:28 ume] in on in AM Serum or source Plasma data Chloride 98 - 107 mmoL/L Normal No Dec 31 [Moles/vo informati 2016 6:28 lume] in on in AM Serum or source Plasma data Carbon 21.0 - mmoL/L Normal No Dec 31 dioxide, 32.0 informati 2016 6:28 total on in AM [Moles/vo source lume] in data Serum or Plasma Creatinin 0.55 - mg/dL High No Dec 31 e 1.02 informati 2017 6:28 [Mass/vol on in AM ume] in source Serum or data Plasma Creatinin 50 - 200 ML/MIN Low No Dec 31 e renal informati 2017 6:28 clearance on in AM source predicted data by Cockcroft -Gault formula Estimated 59- ML/MIN Low REFERENCE Dec 31 RANGE: 2017 6:28 glomerula >60 AM r ML/MIN/1. filtratio 73 SQUARE n rate METERSIf (GF this patient is -A merican, then multiply theresult by 1.210. Glucose 74 - 106 mg/dL High No Dec 31 [Mass/vol informati 2016 6:28 ume] in on in AM Serum or source Plasma data Potassium 3.5 - 5.1 mmoL/L Normal No Dec 31 informati 2016 6:28 [Moles/vo on in AM lume] in source Serum or data Plasma Sodium 136 - 145 mmoL/L Normal No Dec 31 [Moles/vo informati 2016 6:28 lume] in on in AM Serum or source Plasma data CBC W Auto Differential panel in Blood Observa Value Referen Units Interpr Notes Date tion ce etation Range Basophils 0 - 0.2 K/MM3 Normal No Dec 31 informati 2016 6:28 [#/volume on in AM ] in source Blood by data Automated count Basophils 0.1 - 2.0 % Normal No Dec 31 informati 2016 6:28 leukocyte on in AM s in source Blood by data Automated count Eosinophi 0.0 - 0.4 K/mm3 Normal No Dec 31 ls informati 2016 6:28 [#/volume on in AM ] in source Blood by data Automated count Eosinophi 0.1 - % Normal No Dec 31 ls/100 12.0 informati 2017 6:28 leukocyte on in AM s in source Blood by data Automated count Granulocy 1.8 - 7.8 K/mm3 Normal No Dec 31 brynn informati 2017 6:28 [#/volume on in AM ] in source Blood by data Automated count Granulocy 37.0 - % Normal No Dec 31 brynn/100 80.0 informati 2017 6:28 leukocyte on in AM s in source Blood by data Automated count Hematocri 37.0 - % Low No Dec 31 t [Volume 47.0 informati 2016 6:28 on in AM Fraction] source of Blood data Hemoglobi 12.2 - g/dL Low No Dec 31 n 16.2 informati 2017 6:28 [Mass/vol on in AM ume] in source Blood data Lymphocyt 0.7 - 4.5 K/mm3 Normal No Dec 31 es informati 2017 6:28 [#/volume on in AM ] in source Unspecifi data ed specimen by Automated count Lymphocyt 10 - 50.0 % Normal No Dec 31 es informati 2016 6:28 [#/volume on in AM ] in source Unspecifi data ed specimen by Automated count Erythrocy 27 - 31.2 pg Low No Dec 31 te mean informati 2017 6:28 corpuscul on in AM ar source hemoglobi data n [Entitic mass] Erythrocy 31.8 - g/dl Low No Dec 31 te mean 35.4 informati 2017 6:28 corpuscul on in AM ar source hemoglobi data n concentra tion [Mass/vol ume] by Automated count Erythrocy 82.2 - fl Normal No Dec 31 te mean 97.8 informati 2017 6:28 corpuscul on in AM ar volume source [Entitic data volume] by Automated count Monocytes 0.1 - 1.0 K/mm3 Normal No Dec 31 informati 2017 6:28 [#/volume on in AM ] in source Blood by data Automated count Monocytes 1.7 - 9.3 % Normal No Dec 31 / informati 2017 6:28 leukocyte on in AM s in source Blood by data Automated count Platelet 7.4 - fl Normal No Dec 31 mean 10.4 informati 2017 6:28 volume on in AM [Entitic source volume] data in Blood by Automated count Platelets 142 - 424 K/mm3 High No Dec 31 informati 2017 6:28 [#/volume on in AM ] in source Blood data Erythrocy 4.2 - 5.4 M/mm3 Normal No Dec 31 brynn informati 2016 6:28 [#/volume on in AM ] in source Amniotic data fluid Erythrocy 11.5 - % Normal No Dec 31 te 17.5 informati 2016 6:28 distribut on in AM ion width source [Entitic data volume] by Automated count Leukocyte 4.8 - K/MM3 Normal No Dec 31 s 10.8 informati 2016 6:28 [#/volume on in AM ] in source Blood data Troponin I.cardiac [Mass/volume] in Serum or Plasma Observa Value Referen Units Interpr Notes Date tion ce etation Range Troponin 0.00 - ng/mL High 0.04 - Dec 30 I.cardiac 0.06 0.49 IS 2017 6:15 AN PM [Mass/vol INDETERMI ume] in NANT Serum or ZONEAnd Plasma can be consisten t with the following diseases: Trauma Criticall y ill patients Quiñones >30% TBSACHF Hypothyro idism Amyloidos isHyperte nsion Myocardit is SepsisHyp otension Rhabdomyo lysis Vital exhaust.P ostop surgery Pulmonary embolism CVARenal failure Acute neurologi cordell disease Atrial fib. Urinalysis dipstick W Reflex Microscopic panel in Urine Observa Value Referen Units Interpr Notes Date tion ce etation Range Appeara CLOUDY CLEAR No No No Dec 30 nce of informa informa informa 2016 Urine tion in tion in tion in 4:30 PM source source source data data data Bacteri 4+ O No No No Dec 30 a informa informa informa 2016 [Presen tion in tion in tion in 4:30 PM ce] in source source source Urine data data data sedimen t by Light microsc opy Bilirub NEGATIV NEG No No No Dec 30 in E informa informa informa 2016 [Presen tion in tion in tion in 4:30 PM ce] in source source source Urine data data data by Test strip Erythro 2+ NEG No Abnorma No Dec 30 cytes informa l informa 2016 [Presen tion in tion in 4:30 PM ce] in source source Urine data data Color YELLOW YELLOW No No No Dec 30 of informa informa informa 2016 Urine tion in tion in tion in 4:30 PM source source source data data data Glucose NEG No No No Dec 30 [Mass/vol informati informati informati 2016 4:30 ume] in on in on in on in PM Urine by source source source Test data data data strip Ketones NEGATIV NEG mg/dL No No Dec 30 E informa informa 2016 [Presen tion in tion in 4:30 PM ce] in source source Urine data data by Automat ed test strip Mucus 2+ NEG No Abnorma No Dec 30 [Presen informa l inform2016 ce] in tion in tion in 4:30 PM Urine source source sedimen data data t by Light microsc opy Nitrite NEGATIV NEG No No No Dec 30 E informa informa informa 2016 [Presen tion in tion in tion in 4:30 PM ce] in source source source Urine data data data by Test strip pH of 5.0 - 8.5 No Normal No Dec 30 Urine informati informati 2016 4:30 on in on in PM source source data data Protein NEG mg/dL High No Dec 30 [Mass/vol informati 2016 4:30 ume] in on in PM Urine by source Automated data test strip Specific 1.005 - No Normal No Dec 30 gravity 1.030 informati informati 2016 4:30 of Urine on in on in PM source source data data Urobili 0.2 NEG E.U./dL No No Dec 30 nogen informa informa 2016 [Presen tion in tion in 4:30 PM ce] in source source Urine data data by Test strip Leukocy [50 O wbc/hpf No No Dec 30 brynn wbc/hpf informa informa 2016 [#/volu ; 100 tion in tion in 4:30 PM me] in wbc/hpf source source Urine ] data data Urinalysis dipstick W Reflex Microscopic panel in Urine Observa Value Referen Units Interpr Notes Date tion ce etation Range Appeara CLOUDY CLEAR No No No Dec 30 nce of informa informa informa 2017 Urine tion in tion in tion in 4:30 PM source source source data data data Bilirub NEGATIV NEG No No No Dec 30 in E informa informa informa 2016 [Presen tion in tion in tion in 4:30 PM ce] in source source source Urine data data data by Test strip Erythro 2+ NEG No Abnorma No Dec 30 cytes informa l informa 2016 [Presen tion in tion in 4:30 PM ce] in source source Urine data data Color YELLOW YELLOW No No No Dec 30 of informa informa informa 2016 Urine tion in tion in tion in 4:30 PM source source source data data data Glucose NEG No No No Dec 30 [Mass/vol informati informati informati 2016 4:30 ume] in on in on in on in PM Urine by source source source Test data data data strip Ketones NEGATIV NEG mg/dL No No Dec 30 E informa informa 2016 [Presen tion in tion in 4:30 PM ce] in source source Urine data data by Automat ed test strip Mucus 2+ NEG No Abnorma No Dec 30 [Presen informa l informa 2016 ce] in tion in tion in 4:30 PM Urine source source sedimen data data t by Light microsc opy Nitrite NEGATIV NEG No No No Dec 30 E informa informa informa 2016 [Presen tion in tion in tion in 4:30 PM ce] in source source source Urine data data data by Test strip pH of 5.0 - 8.5 No Normal No Dec 30 Urine informati informati 2017 4:30 on in on in PM source source data data Protein NEG mg/dL High No Dec 30 [Mass/vol informati 2016 4:30 ume] in on in PM Urine by source Automated data test strip Specific 1.005 - No Normal No Dec 30 gravity 1.030 informati informati 2016 4:30 of Urine on in on in PM source source data data Urobili 0.2 NEG E.U./dL No No Dec 30 nogen informa informa 2016 [Presen tion in tion in 4:30 PM ce] in source source Urine data data by Test strip INR in Blood by Coagulation assay Observa Value Referen Units Interpr Notes Date tion ce etation Range IS PATIENT ON ANTICOAGULANTS? Y LIST ANTICOAGULANTS: WARFARIN INR in 0.9 - 1.1 No High INDICATIO Dec 30 Blood by informati N 2017 4:20 Coagulati on in PM on assay source INR data RANGETHER APY FOR DVT, PE, ATRIAL FIB; 2.0 - 3.0PROPHY LAXIS FOR VTETHERAP Y FOR MECHANICA L HEART 2.5 - 3.5VALVE; PREVENTIO N OF SYSTEMICE MBOLISM SECONDARY TO AMI Prothromb 9.4 - SECONDS High No Dec 30 in time 11.8 informati 2016 4:20 (PT) in on in PM Platelet source poor data plasma by Coagulati on assay Cardiac enzymes Observa Value Referen Units Interpr Notes Date ti ce etation Range Creatine 0 - 4.0 U/L Normal No Dec 30 kinase.MB informati 2016 4:20 /Creatine on in PM source kinase.to data temi [Ratio] in Serum or Plasma Creatine 0.0 - 3.6 ng/mL Normal No Dec 30 kinase.MB informati 2016 4:20 on in PM [Mass/vol source ume] in data Serum or Plasma Creatine 26 - 192 U/L Normal No Dec 30 kinase informati 2016 4:20 [Enzymati on in PM c source activity/ data volume] in Serum or Plasma Troponin 0.00 - ng/mL High 0.04 - Dec 30 I.cardiac 0.06 0.49 IS 2017 4:20 AN PM [Mass/vol INDETERMI ume] in NANT Serum or ZONEAnd Plasma can be consisten t with the following diseases: Trauma Criticall y ill patients Quiñones >30% TBSACHF Hypothyro idism Amyloidos isHyperte nsion Myocardit is SepsisHyp otension Rhabdomyo lysis Vital exhaust.P ostop surgery Pulmonary embolism CVARenal failure Acute neurologi cordell disease Atrial fib. Comprehensive metabolic 2000 panel in Serum or Plasma Observa Value Referen Units Interpr Notes Date ti ce etation Range Albumin/G 1.1 - 1.8 No Low No Dec 30 lobulin informati informati 2016 4:20 [Mass on in on in PM ratio] in source source Serum or data data Plasma Albumin 3.4 - 5.0 gm/dL Low No Dec 30 [Mass/vol informati 2016 4:20 ume] in on in PM Serum or source Plasma data Alkaline 46 - 116 U/L High No Dec 30 phosphata informati 2016 4:20 se on in PM [Enzymati source c data activity/ volume] in Serum or Plasma Bilirubin 0.2 - 1.0 mg/dL Normal No Dec 30 .total informati 2016 4:20 [Mass/vol on in PM ume] in source Serum or data Plasma Urea 7 - 18 mg/dL High No Dec 30 nitrogen informati 2016 4:20 [Mass/vol on in PM ume] in source Serum or data Plasma Calcium 8.5 - mg/dL Normal No Dec 30 [Mass/vol 10.1 informati 2016 4:20 ume] in on in PM Serum or source Plasma data Chloride 98 - 107 mmoL/L Normal No Dec 30 [Moles/vo informati 2016 4:20 lume] in on in PM Serum or source Plasma data Carbon 21.0 - mmoL/L Normal No Dec 30 dioxide, 32.0 informati 2016 4:20 total on in PM [Moles/vo source lume] in data Serum or Plasma Creatinin 0.55 - mg/dL High No Dec 30 e 1.02 informati 2016 4:20 [Mass/vol on in PM ume] in source Serum or data Plasma Creatinin 50 - 200 ML/MIN Low No Dec 30 e renal informati 2016 4:20 clearance on in PM source predicted data by Cockcroft -Gault formula Estimated 59- ML/MIN Low REFERENCE Dec 30 RANGE: 2016 4:20 glomerula >60 PM r ML/MIN/1. filtratio 73 SQUARE n rate METERSIf (GF this patient is -A merican, then multiply theresult by 1.210. Globulin 1.3 - 3.2 gm/dL High No Dec 30 [Mass/vol informati 2016 4:20 ume] in on in PM Serum source data Glucose 74 - 106 mg/dL High No Dec 30 [Mass/vol informati 2016 4:20 ume] in on in PM Serum or source Plasma data Potassium 3.5 - 5.1 mmoL/L High SLIGHT Dec 30 LIPEMIA 2017 4:20 [Moles/vo NOTED. K PM lume] in AND AST Serum or VALUE MAY Plasma BE FALSELYEL EVATED. Sodium 136 - 145 mmoL/L Low No Dec 30 [Moles/vo informati 2016 4:20 lume] in on in PM Serum or source Plasma data Aspartate 15 - 37 U/L Normal SLIGHT Dec 30 LIPEMIA 2017 4:20 aminotran NOTED. K PM sferase AND AST [Enzymati VALUES c MAY BE activity/ FASLELYEL volume] EVATED. in Serum or Plasma Alanine 12 - 78 U/L Normal No Dec 30 aminotran informati 2016 4:20 sferase on in PM [Enzymati source c data activity/ volume] in Serum or Plasma Protein 6.4 - 8.2 gm/dL High No Dec 30 [Mass/vol ati 2016 4:20 ume] in on in PM Serum or source Plasma data Free T4 & TSH panel in Serum or Plasma Observa Value Referen Units Interpr Notes Date tion ce etation Range Thyroxine 5.93 - ug/dl Low No Dec 30 (T4) 13.13 informati 2016 4:20 free on in PM index in source Serum or data Plasma Triiodoth 31 - 39 % Normal No Dec 30 yronine informati 2016 4:20 (T3) on in PM resin source uptake in data Serum or Plasma Thyroxine 4.7 - ug/dl Normal No Dec 30 (T4) 13.3 informati 2016 4:20 [Mass/vol on in PM ume] in source Serum or data Plasma Thyrotrop 0.358 - uIU/ml High No Dec 30 in 3.740 informati 2016 4:20 [Units/vo on in PM lume] in source Serum or data Plasma CBC W Auto Differential panel in Blood Observa Value Referen Units Interpr Notes Date tion ce etation Range Basophils 0 - 0.2 K/MM3 Normal No Dec 30ati 2016 4:20 [#/volume on in PM ] in source Blood by data Automated count Basophils 0.1 - 2.0 % Normal No Dec 30 informati 2016 4:20 leukocyte on in PM s in source Blood by data Automated count Eosinophi 0.0 - 0.4 K/mm3 Normal No Dec 30 ls ati 2016 4:20 [#/volume on in PM ] in source Blood by data Automated count Eosinophi 0.1 - % Normal No Dec 30 ls/100 12.0 informati 2016 4:20 leukocyte on in PM s in source Blood by data Automated count Granulocy 1.8 - 7.8 K/mm3 Normal No Dec 30 brynn informati 2016 4:20 [#/volume on in PM ] in source Blood by data Automated count Granulocy 37.0 - % Normal No Dec 30 brynn/100 80.0 informati 2016 4:20 leukocyte on in PM s in source Blood by data Automated count Hematocri 37.0 - % Low No Dec 30 t [Volume 47.0 informati 2016 4:20 on in PM Fraction] source of Blood data Hemoglobi 12.2 - g/dL Low No Dec 30 n 16.2 informati 2016 4:20 [Mass/vol on in PM ume] in source Blood data Lymphocyt 0.7 - 4.5 K/mm3 Normal No Dec 30 es informati 2016 4:20 [#/volume on in PM ] in source Unspecifi data ed specimen by Automated count Lymphocyt 10 - 50.0 % Normal No Dec 30 es informati 2016 4:20 [#/volume on in PM ] in source Unspecifi data ed specimen by Automated count Erythrocy 27 - 31.2 pg Low No Dec 30 te mean informati 2016 4:20 corpuscul on in PM ar source hemoglobi data n [Entitic mass] Erythrocy 31.8 - g/dl Normal No Dec 30 te mean 35.4 informati 2016 4:20 corpuscul on in PM ar source hemoglobi data n concentra tion [Mass/vol ume] by Automated count Erythrocy 82.2 - fl Normal No Dec 30 te mean 97.8 informati 2016 4:20 corpuscul on in PM ar volume source [Entitic data volume] by Automated count Monocytes 0.1 - 1.0 K/mm3 Normal No Dec 30 informati 2016 4:20 [#/volume on in PM ] in source Blood by data Automated count Monocytes 1.7 - 9.3 % Normal No Dec 30 / informati 2017 4:20 leukocyte on in PM s in source Blood by data Automated count Platelet 7.4 - fl Normal No Dec 30 mean 10.4 informati 2017 4:20 volume on in PM [Entitic source volume] data in Blood by Automated count Platelets 142 - 424 K/mm3 High No Dec 30ati 2016 4:20 [#/volume on in PM ] in source Blood data Erythrocy 4.2 - 5.4 M/mm3 Low No Dec 30 brynn informati 2017 4:20 [#/volume on in PM ] in source Amniotic data fluid Erythrocy 11.5 - % Normal No Dec 30 te 17.5 informati 2016 4:20 distribut on in PM ion width source [Entitic data volume] by Automated count Leukocyte 4.8 - K/MM3 Normal No Dec 30 s 10.8 informati 2016 4:20 [#/volume on in PM ] in source Blood data Natriutietic peptide B [Mass/volume] in Serum or Plasma Observa Value Referen Units Interpr Notes Date tion ce etation Range Natriutie 0 - 100 pg/mL High No Dec 30 tic informati 2017 3:42 peptide B on in PM source [Mass/vol data ume] in Serum or Plasma HCV RNA by PCR, Qn Rfx Miryam Observa Value Referen Units Interpr Notes Date ti ce etation Range Hepatitis . IU/mL No INFCE Dec 20 C virus informati Result 2017 RNA on in Units: [Units/vo source log10 lume] data IU/mLUnab (viral le to load) in calculate Serum or result Plasma by since Probe & non-numer target ic amplifica resultobt tion ained for method component test. 09/06 1840:HCV LOG10 previousl y reported as: Test Comment . No No The Dec 20 Informa informa informa quantit 2017 tion: tion in tion in ative source source range data data of this assay is 15 IU/mL to 100mill ion IU/mL. HCV NOT No No No Not Dec 20 Genotyp INDICAT informa informa informa indicat 2017 e ED tion in tion in tion in edPerfo source source source rmed data data data at: - [facility] [address] [id number] Directo r: Anshu Ram MD, Phone: [phone] Glucose [Mass/volume] in Capillary blood by Glucometer Observa Value Referen Units Interpr Notes Date etation Range Glucose 70 - 110 mg/dl High No Dec 16 [Mass/vol informati 2016 6:45 ume] in on in AM Capillary source blood by data Glucomete r Glucose [Mass/volume] in Capillary blood by Glucometer Observa Value Referen Units Interpr Notes Date ti etation Range Glucose 70 - 110 mg/dl High No Dec 15 [Mass/vol informati 2017 8:08 ume] in on in PM Capillary source blood by data Glucomete r Glucose [Mass/volume] in Capillary blood by Glucometer Observa Value Referen Units Interpr Notes Date ti etation Range Glucose 70 - 110 mg/dl High No Dec 15 [Mass/vol alert informati 2017 4:45 ume] in on in PM Capillary source blood by data Glucomete r Glucose [Mass/volume] in Capillary blood by Glucometer Observa Value Referen Units Interpr Notes Date tion ce etation Range Glucose 70 - 110 mg/dl High No Dec 15 [Mass/vol informati 2016 ume] in on in 12:20 PM Capillary source blood by data Glucomete r Basic metabolic panel in Blood Observa Value Referen Units Interpr Notes Date ti ce etation Range Urea 7 - 18 mg/dL High No Dec 15 nitrogen informati 2016 [Mass/vol on in 11:40 AM ume] in source Serum or data Plasma Calcium 8.5 - mg/dL Normal No Dec 15 [Mass/vol 10.1 informati 2016 ume] in on in 11:40 AM Serum or source Plasma data Chloride 98 - 107 mmoL/L Normal No Dec 15 [Moles/vo informati 2016 lume] in on in 11:40 AM Serum or source Plasma data Carbon 21.0 - mmoL/L Normal No Dec 15 dioxide, 32.0 informati 2016 total on in 11:40 AM [Moles/vo source lume] in data Serum or Plasma Creatinin 0.55 - mg/dL High No Dec 15 e 1.02 informati 2016 [Mass/vol on in 11:40 AM ume] in source Serum or data Plasma Creatinin 50 - 200 ML/MIN No No Dec 15 e renal informati informati 2017 clearance on in on in 11:40 AM source source predicted data data by Cockcroft -Gault formula Estimated 59- ML/MIN Low REFERENCE Dec 15 RANGE: 2017 glomerula >60 11:40 AM r ML/MIN/1. filtratio 73 SQUARE n rate METERSIf (GF this patient is -A merican, then multiply theresult by 1.210. Glucose 74 - 106 mg/dL High No Dec 15 [Mass/vol informati 2016 ume] in on in 11:40 AM Serum or source Plasma data Potassium 3.5 - 5.1 mmoL/L Normal No Dec 15 informati 2016 [Moles/vo on in 11:40 AM lume] in source Serum or data Plasma Sodium 136 - 145 mmoL/L Normal No Dec 15 [Moles/vo informati 2016 lume] in on in 11:40 AM Serum or source Plasma data Fibrin D-dimer FEU [Mass/volume] in Platelet poor plasma Observa Value Referen Units Interpr Notes Date ti ce etation Range Fibrin 0 - 400 ng/mL Normal The Dec 15 D-dimer D-Dimer 2017 FEU values 11:40 AM [Mass/vol are ume] in presented Platelet in units poor of plasma mass(ng/m L) ofD-Dimer units(DDU ).This test has been FDA approved as an aid in the assessmen tand evaluatio n of suspected DIC, and thromboem bolic eventsinc luding PE and DVT. However, it does not have approvalf or cut-off values for the exclusion of these condition s. Gas panel in Arterial blood Observa Value Referen Units Interpr Notes Date tion ce etation Range Base -2.4-+2.3 MMOL/L Normal No Nov 25 excess in informati 2016 Arterial on in 11:39 AM blood source data Arteria ACCEPTA No No No No Nov 25 l BLE informa informa informa informa 2017 patency tion in tion in tion in tion in 11:39 Wrist source source source source AM artery data data data data --pre arteria l punctur e Bicarbona 22.0 - MMOL/L Normal No Dec 15 te 26.0 informati 2016 [Moles/vo on in 11:39 AM lume] in source Arterial data blood Oxygen No No No No Dec 15 content informati informati informati informati 2017 in on in on in on in on in 11:39 AM Arterial source source source source blood data data data data Carbon 35.0 - MMHG Normal No Dec 15 dioxide 45.0 informati 2016 [Partial on in 11:39 AM pressure] source in data Arterial blood pH of 7.35 - MMOL/L Normal No Dec 15 Arterial 7.45 informati 2016 blood on in 11:39 AM source data Oxygen 80 - 100 MMHG Low alert Dec 15 [Partial 2017 pressure] CRITICAL 11:39 AM in RESULTS Arterial blood RESU LTS CALLED TO: RENUKA [id number] 12/15/16 1146 Juan Diego,Ther evert Oxygen 90 - 100 % Low alert No Nov 25 saturatio informati 2017 n.calcula on in 11:39 AM ryan from source oxygen data partial pressure in Arterial blood Carbon 23 - 27 MMOL/L Normal No Dec 15 dioxide, informati 2017 total on in 11:39 AM [Moles/vo source lume] in data Arterial blood Glucose [Mass/volume] in Capillary blood by Glucometer Observa Value Referen Units Interpr Notes Date ti ce etation Range Glucose 70 - 110 mg/dl High No Nov 25 [Mass/vol informati 2016 6:11 ume] in on in AM Capillary source blood by data Glucomete r Glucose [Mass/volume] in Capillary blood by Glucometer Observa Value Referen Units Interpr Notes Date ti ce etation Range Glucose 70 - 110 mg/dl High No Nov 24 [Mass/vol alert informati 2016 7:59 ume] in on in PM Capillary source blood by data Glucomete r Glucose [Mass/volume] in Capillary blood by Glucometer Observa Value Referen Units Interpr Notes Date ti etation Range Glucose 70 - 110 mg/dl High No Dec 14 [Mass/vol informati 2016 5:01 ume] in on in PM Capillary source blood by data Glucomete r Glucose [Mass/volume] in Capillary blood by Glucometer Observa Value Referen Units Interpr Notes Date ti ce etation Range Glucose 70 - 110 mg/dl High No Dec 14 [Mass/vol informati 2016 ume] in on in 11:59 AM Capillary source blood by data Glucomete r INR in Blood by Coagulation assay Observa Value Referen Units Interpr Notes Date ti etation Range IS PATIENT ON ANTICOAGULANTS? Y LIST ANTICOAGULANTS: WARFARIN INR in 0.9 - 1.1 No High Dec 14 Blood by informati NOTIFICAT 2016 6:20 Coagulati on in ION AM on assay source RESULT data INDIC ATION INR RANGETHER APY FOR DVT, PE, ATRIAL FIB; 2.0 - 3.0PROPHY LAXIS FOR VTETHERAP Y FOR MECHANICA L HEART 2.5 - 3.5VALVE; PREVENTIO N OF SYSTEMICE MBOLISM SECONDARY TO AMI Prothromb 9.4 - SECONDS High Dec 14 in time 11.8 NOTIFICAT 2017 6:20 (PT) in ION AM Platelet RESULT poor plasma by Coagulati on assay Glucose [Mass/volume] in Capillary blood by Glucometer Observa Value Referen Units Interpr Notes Date ti ce etation Range Glucose 70 - 110 mg/dl High No Dec 14 [Mass/vol informati 2016 6:12 ume] in on in AM Capillary source blood by data Glucomete r Glucose [Mass/volume] in Capillary blood by Glucometer Observa Value Referen Units Interpr Notes Date tion ce etation Range Glucose 70 - 110 mg/dl High No Dec 13 [Mass/vol informati 2016 7:55 ume] in on in PM Capillary source blood by data Glucomete r Glucose [Mass/volume] in Capillary blood by Glucometer Observa Value Referen Units Interpr Notes Date ti ce etation Range Glucose 70 - 110 mg/dl High No Dec 13 [Mass/vol informati 2016 4:13 ume] in on in PM Capillary source blood by data Glucomete r Glucose [Mass/volume] in Capillary blood by Glucometer Observa Value Referen Units Interpr Notes Date ti ce etation Range Glucose 70 - 110 mg/dl High No Dec 13 [Mass/vol informati 2016 ume] in on in 11:24 AM Capillary source blood by data Glucomete r INR in Blood by Coagulation assay Observa Value Referen Units Interpr Notes Date ti ce etation Range IS PATIENT ON ANTICOAGULANTS? Y LIST ANTICOAGULANTS: WARFARIN PTT RESULTS MUST BE CALLED IF PT ON HEPARIN!!! Y INR in 0.9 - 1.1 No High INDICATIO Dec 13 Blood by informati N 2016 9:05 Coagulati on in AM on assay source INR data RANGETHER APY FOR DVT, PE, ATRIAL FIB; 2.0 - 3.0PROPHY LAXIS FOR VTETHERAP Y FOR MECHANICA L HEART 2.5 - 3.5VALVE; PREVENTIO N OF SYSTEMICE MBOLISM SECONDARY TO AMI Prothromb 9.4 - SECONDS High No Dec 13 in time 11.8 informati 2017 9:05 (PT) in on in AM Platelet source poor data plasma by Coagulati on assay Basic metabolic panel in Blood Observa Value Referen Units Interpr Notes Date ti ce etation Range Urea 7 - 18 mg/dL High No Dec 13 nitrogen informati 2017 9:05 [Mass/vol on in AM ume] in source Serum or data Plasma Calcium 8.5 - mg/dL Normal No Dec 13 [Mass/vol 10.1 informati 2017 9:05 ume] in on in AM Serum or source Plasma data Chloride 98 - 107 mmoL/L Normal No Dec 13 [Moles/vo informati 2017 9:05 lume] in on in AM Serum or source Plasma data Carbon 21.0 - mmoL/L Normal No Dec 13 dioxide, 32.0 informati 2016 9:05 total on in AM [Moles/vo source lume] in data Serum or Plasma Creatinin 0.55 - mg/dL High No Dec 13 e 1.02 informati 2016 9:05 [Mass/vol on in AM ume] in source Serum or data Plasma Creatinin 50 - 200 ML/MIN Low No Dec 13 e renal informati 2016 9:05 clearance on in AM source predicted data by Cockcroft -Gault formula Estimated 59- ML/MIN Low REFERENCE Dec 13 RANGE: 2017 9:05 glomerula >60 AM r ML/MIN/1. filtratio 73 SQUARE n rate METERSIf (GF this patient is -A merican, then multiply theresult by 1.210. Glucose 74 - 106 mg/dL High No Dec 13 [Mass/vol informati 2016 9:05 ume] in on in AM Serum or source Plasma data Potassium 3.5 - 5.1 mmoL/L Normal No Dec 13 informati 2016 9:05 [Moles/vo on in AM lume] in source Serum or data Plasma Sodium 136 - 145 mmoL/L Normal No Dec 13 [Moles/vo informati 2016 9:05 lume] in on in AM Serum or source Plasma data CBC W Auto Differential panel in Blood Observa Value Referen Units Interpr Notes Date tion ce etation Range Basophils 0 - 0.2 K/MM3 Normal No Dec 13 inform2016 9:05 [#/volume on in AM ] in source Blood by data Automated count Basophils 0.1 - 2.0 % Normal No Dec 13 /100 informati 2016 9:05 leukocyte on in AM s in source Blood by data Automated count Eosinophi 0.0 - 0.4 K/mm3 Normal No Dec 13 ls informati 2016 9:05 [#/volume on in AM ] in source Blood by data Automated count Eosinophi 0.1 - % Normal No Dec 13 ls/100 12.0 informati 2016 9:05 leukocyte on in AM s in source Blood by data Automated count Granulocy 1.8 - 7.8 K/mm3 High No Dec 13 brynn informati 2016 9:05 [#/volume on in AM ] in source Blood by data Automated count Granulocy 37.0 - % High No Dec 13 brynn/100 80.0 informati 2017 9:05 leukocyte on in AM s in source Blood by data Automated count Hematocri 37.0 - % Low No Dec 13 t [Volume 47.0 informati 2017 9:05 on in AM Fraction] source of Blood data Hemoglobi 12.2 - g/dL Low No Dec 13 n 16.2 informati 2017 9:05 [Mass/vol on in AM ume] in source Blood data Lymphocyt 0.7 - 4.5 K/mm3 Normal No Dec 13 es informati 2017 9:05 [#/volume on in AM ] in source Unspecifi data ed specimen by Automated count Lymphocyt 10 - 50.0 % Normal No Dec 13 es informati 2017 9:05 [#/volume on in AM ] in source Unspecifi data ed specimen by Automated count Erythrocy 27 - 31.2 pg Normal No Dec 13 te mean informati 2017 9:05 corpuscul on in AM ar source hemoglobi data n [Entitic mass] Erythrocy 31.8 - g/dl Low No Dec 13 te mean 35.4 informati 2017 9:05 corpuscul on in AM ar source hemoglobi data n concentra tion [Mass/vol ume] by Automated count Erythrocy 82.2 - fl Normal No Dec 13 te mean 97.8 informati 2017 9:05 corpuscul on in AM ar volume source [Entitic data volume] by Automated count Monocytes 0.1 - 1.0 K/mm3 Normal No Dec 13 informati 2017 9:05 [#/volume on in AM ] in source Blood by data Automated count Monocytes 1.7 - 9.3 % Normal No Dec 13 /100 informati 2017 9:05 leukocyte on in AM s in source Blood by data Automated count Platelet 7.4 - fl Normal No Dec 13 mean 10.4 informati 2017 9:05 volume on in AM [Entitic source volume] data in Blood by Automated count Platelets 142 - 424 K/mm3 Normal No Dec 13 informati 2017 9:05 [#/volume on in AM ] in source Blood data Erythrocy 4.2 - 5.4 M/mm3 Low No Dec 13 brynn informati 2017 9:05 [#/volume on in AM ] in source Amniotic data fluid Erythrocy 11.5 - % Normal No Dec 13 te 17.5 informati 2017 9:05 distribut on in AM ion width source [Entitic data volume] by Automated count Leukocyte 4.8 - K/MM3 High No Remi 23 s 10.8 informati 2017 9:05 [#/volume on in AM ] in source Blood data Gas panel in Arterial blood Observa Value Referen Units Interpr Notes Date tion ce etation Range Base -2.4-+2.3 MMOL/L Normal No Remi 23 excess in informati 2017 9:01 Arterial on in AM blood source data Arteria ACCEPTA No No No No Dec 13 l BLE informa informa informa informa 2017 patency tion in tion in tion in tion in 9:01 AM Wrist source source source source artery data data data data --pre arteria l punctur e Bicarbona 22.0 - MMOL/L Normal No Dec 13 te 26.0 informati 2017 9:01 [Moles/vo on in AM lume] in source Arterial data blood Oxygen No No No No Dec 13 content informati informati informati informati 2017 9:01 in on in on in on in on in AM Arterial source source source source blood data data data data Carbon 35.0 - MMHG High No Dec 13 dioxide 45.0 informati 2017 9:01 [Partial on in AM pressure] source in data Arterial blood pH of 7.35 - MMOL/L Low No Dec 13 Arterial 7.45 informati 2017 9:01 blood on in AM source data Oxygen 80 - 100 MMHG Low No Nov 23 [Partial informati 2017 9:01 pressure] on in AM in source Arterial data blood Oxygen 90 - 100 % Normal No Dec 13 saturatio informati 2017 9:01 n.calcula on in AM ryan from source oxygen data partial pressure in Arterial blood SOURCE R No No No No Dec 13 RADIAL informa informa informa informa 2017 tion in tion in tion in tion in 9:01 AM source source source source data data data data Carbon 23 - 27 MMOL/L Normal No Dec 13 dioxide, informati 2017 9:01 total on in AM [Moles/vo source lume] in data Arterial blood Glucose [Mass/volume] in Capillary blood by Glucometer Observa Value Referen Units Interpr Notes Date tion ce etation Range Glucose 70 - 110 mg/dl High No Nov 23 [Mass/vol informati 2017 8:44 ume] in on in AM Capillary source blood by data Glucomete r Glucose [Mass/volume] in Capillary blood by Glucometer Observa Value Referen Units Interpr Notes Date tion ce etation Range Glucose 70 - 110 mg/dl High No Nov 23 [Mass/vol informati 2017 6:29 ume] in on in AM Capillary source blood by data Glucomete r Glucose [Mass/volume] in Capillary blood by Glucometer Observa Value Referen Units Interpr Notes Date tion ce etation Range Glucose 70 - 110 mg/dl High No Dec 12 [Mass/vol informati 2017 8:29 ume] in on in PM Capillary source blood by data Glucomete r Glucose [Mass/volume] in Capillary blood by Glucometer Observa Value Referen Units Interpr Notes Date tion ce etation Range Glucose 70 - 110 mg/dl High No Dec 12 [Mass/vol alert informati 2016 4:02 ume] in on in PM Capillary source blood by data Glucomete r Glucose [Mass/volume] in Capillary blood by Glucometer Observa Value Referen Units Interpr Notes Date tion ce etation Range Glucose 70 - 110 mg/dl High No Dec 12 [Mass/vol alert informati 2017 ume] in on in 11:29 AM Capillary source blood by data Glucomete r Hepatitis B virus DNA [Log #/volume] (viral load) in Unspecified specimen by Probe & target amplification method Observa Value Referen Units Interpr Notes Date tion ce etation Range Hepatitis <0.01 No No No Remi 22 B virus informati informati informati 2017 9:00 DNA [Log on in on in on in AM #/volume] source source source (viral data data data load) in Unspecifi ed specimen by Probe & target amplifica tion method Glucose [Mass/volume] in Capillary blood by Glucometer Observa Value Referen Units Interpr Notes Date ti ce etation Range Glucose 70 - 110 mg/dl High No Dec 12 [Mass/vol informati 2017 6:33 ume] in on in AM Capillary source blood by data Glucomete r Basic metabolic panel in Blood Observa Value Referen Units Interpr Notes Date tion ce etation Range Urea 7 - 18 mg/dL High No Dec 12 nitrogen informati 2017 6:10 [Mass/vol on in AM ume] in source Serum or data Plasma Calcium 8.5 - mg/dL Normal No Dec 12 [Mass/vol 10.1 informati 2017 6:10 ume] in on in AM Serum or source Plasma data Chloride 98 - 107 mmoL/L Normal No Dec 12 [Moles/vo informati 2016 6:10 lume] in on in AM Serum or source Plasma data Carbon 21.0 - mmoL/L Normal No Dec 12 dioxide, 32.0 informati 2017 6:10 total on in AM [Moles/vo source lume] in data Serum or Plasma Creatinin 0.55 - mg/dL High No Dec 12 e 1.02 informati 2017 6:10 [Mass/vol on in AM ume] in source Serum or data Plasma Creatinin 50 - 200 ML/MIN Low No Dec 12 e renal informati 2017 6:10 clearance on in AM source predicted data by Cockcroft -Gault formula Estimated 59- ML/MIN Low REFERENCE Dec 12 RANGE: 2017 6:10 glomerula >60 AM r ML/MIN/1. filtratio 73 SQUARE n rate METERSIf (GF this patient is -A merican, then multiply theresult by 1.210. Glucose 74 - 106 mg/dL High No Dec 12 [Mass/vol informati 2017 6:10 ume] in on in AM Serum or source Plasma data Potassium 3.5 - 5.1 mmoL/L High No Dec 12 informati 2016 6:10 [Moles/vo on in AM lume] in source Serum or data Plasma Sodium 136 - 145 mmoL/L Low No Dec 12 [Moles/vo informati 2016 6:10 lume] in on in AM Serum or source Plasma data CBC W Auto Differential panel in Blood Observa Value Referen Units Interpr Notes Date tion ce etation Range Basophils 0 - 0.2 K/MM3 Normal No Dec 12 informati 2017 6:10 [#/volume on in AM ] in source Blood by data Automated count Basophils 0.1 - 2.0 % Normal No Nov 22 /100 informati 2017 6:10 leukocyte on in AM s in source Blood by data Automated count Eosinophi 0.0 - 0.4 K/mm3 Normal No Dec 12 ls informati 2017 6:10 [#/volume on in AM ] in source Blood by data Automated count Eosinophi 0.1 - % Normal No Dec 12 ls/100 12.0 informati 2016 6:10 leukocyte on in AM s in source Blood by data Automated count Granulocy 1.8 - 7.8 K/mm3 High No Dec 12 brynn informati 2017 6:10 [#/volume on in AM ] in source Blood by data Automated count Granulocy 37.0 - % High No Dec 12 brynn/100 80.0 informati 2017 6:10 leukocyte on in AM s in source Blood by data Automated count Hematocri 37.0 - % Low No Dec 12 t [Volume 47.0 informati 2017 6:10 on in AM Fraction] source of Blood data Hemoglobi 12.2 - g/dL Low No Dec 12 n 16.2 informati 2017 6:10 [Mass/vol on in AM ume] in source Blood data Lymphocyt 0.7 - 4.5 K/mm3 Normal No Dec 12 es informati 2017 6:10 [#/volume on in AM ] in source Unspecifi data ed specimen by Automated count Lymphocyt 10 - 50.0 % Normal No Dec 12 es informati 2017 6:10 [#/volume on in AM ] in source Unspecifi data ed specimen by Automated count Erythrocy 27 - 31.2 pg Normal No Dec 12 te mean informati 2017 6:10 corpuscul on in AM ar source hemoglobi data n [Entitic mass] Erythrocy 31.8 - g/dl Low No Dec 12 te mean 35.4 informati 2017 6:10 corpuscul on in AM ar source hemoglobi data n concentra tion [Mass/vol ume] by Automated count Erythrocy 82.2 - fl Normal No Dec 12 te mean 97.8 informati 2017 6:10 corpuscul on in AM ar volume source [Entitic data volume] by Automated count Monocytes 0.1 - 1.0 K/mm3 High No Dec 12 informati 2017 6:10 [#/volume on in AM ] in source Blood by data Automated count Monocytes 1.7 - 9.3 % Normal No Nov 22 /100 informati 2017 6:10 leukocyte on in AM s in source Blood by data Automated count Platelet 7.4 - fl Normal No Dec 12 mean 10.4 informati 2017 6:10 volume on in AM [Entitic source volume] data in Blood by Automated count Platelets 142 - 424 K/mm3 Normal No Dec 12 informati 2017 6:10 [#/volume on in AM ] in source Blood data Erythrocy 4.2 - 5.4 M/mm3 Low No Dec 12 brynn informati 2017 6:10 [#/volume on in AM ] in source Amniotic data fluid Erythrocy 11.5 - % Normal No Dec 12 te 17.5 informati 2017 6:10 distribut on in AM ion width source [Entitic data volume] by Automated count Leukocyte 4.8 - K/MM3 High No Dec 12 s 10.8 alert informati 2017 6:10 [#/volume on in AM ] in source Blood data Glucose [Mass/volume] in Capillary blood by Glucometer Observa Value Referen Units Interpr Notes Date tion ce etation Range Glucose 70 - 110 mg/dl High No Dec 12 [Mass/vol informati 2017 3:01 ume] in on in AM Capillary source blood by data Glucomete r Glucose [Mass/volume] in Capillary blood by Glucometer Observa Value Referen Units Interpr Notes Date ti ce etation Range Glucose 70 - 110 mg/dl High No Dec 11 [Mass/vol informati 2016 9:21 ume] in on in PM Capillary source blood by data Glucomete r Lactate [Moles/volume] in Blood Observa Value Referen Units Interpr Notes Date ti ce etation Range Lactate 0.4 - 2.0 mmol/L Normal No Dec 11 [Moles/vo informati 2016 7:09 lume] in on in PM Blood source data Urinalysis dipstick W Reflex Microscopic panel in Urine Observa Value Referen Units Interpr Notes Date ti ce etation Range Appeara CLOUDY CLEAR No No No Dec 11 nce of informa informa informa 2016 Urine tion in tion in tion in 6:10 PM source source source data data data Bacteri 4+ O No No No Dec 11 a informa informa informa 2016 [Presen tion in tion in tion in 6:10 PM ce] in source source source Urine data data data sedimen t by Light microsc opy Bilirub NEGATIV NEG No No No Dec 11 in E informa informa informa 2016 [Presen tion in tion in tion in 6:10 PM ce] in source source source Urine data data data by Test strip Erythro 3+ NEG No Abnorma No Dec 11 cytes informa l informa 2016 [Presen tion in tion in 6:10 PM ce] in source source Urine data data Color YELLOW YELLOW No No No Dec 11 of informa informa informa 2017 Urine tion in tion in tion in 6:10 PM source source source data data data Glucose NEG No No No Dec 11 [Mass/vol informati informati informati 2017 6:10 ume] in on in on in on in PM Urine by source source source Test data data data strip Ketones NEGATIV NEG mg/dL No No Dec 11 E informa informa 2016 [Presen tion in tion in 6:10 PM ce] in source source Urine data data by Automat ed test strip Mucus 3+ NEG No Abnorma No Dec 11 [Presen informa l informa 2016 ce] in tion in tion in 6:10 PM Urine source source sedimen data data t by Light microsc opy Nitrite POSITIV NEG No Abnorma No Dec 11 E informa l informa 2016 [Presen tion in tion in 6:10 PM ce] in source source Urine data data by Test strip pH of 5.0 - 8.5 No Normal No Dec 11 Urine informati informati 2017 6:10 on in on in PM source source data data Protein NEG mg/dL High No Dec 11 [Mass/vol informati 2017 6:10 ume] in on in PM Urine by source Automated data test strip Erythro 10-20 0 rbc/hpf No No Dec 11 cytes informa informa 2016 [Presen tion in tion in 6:10 PM ce] in source source Urine data data sedimen t by Light microsc opy Specific 1.005 - No Normal No Dec 11 gravity 1.030 informati informati 2017 6:10 of Urine on in on in PM source source data data Epithel 5-10 0 - 5 #/hpf No No Dec 11 ial informa informa 2017 cells.s tion in tion in 6:10 PM quamous source source data data [Presen ce] in Urine sedimen t by Microsc opy high power field Urobili 0.2 NEG E.U./dL No No Dec 11 nogen informa informa 2017 [Presen tion in tion in 6:10 PM ce] in source source Urine data data by Test strip Leukocyte O wbc/hpf No No Nov 21 s informati informati 2017 6:10 [#/volume on in on in PM ] in source source Urine data data Urinalysis dipstick W Reflex Microscopic panel in Urine Observa Value Referen Units Interpr Notes Date tion ce etation Range Appeara CLOUDY CLEAR No No No Dec 11 nce of informa informa informa 2016 Urine tion in tion in tion in 6:10 PM source source source data data data Bilirub NEGATIV NEG No No No Dec 11 in E informa informa informa 2016 [Presen tion in tion in tion in 6:10 PM ce] in source source source Urine data data data by Test strip Erythro 3+ NEG No Abnorma No Dec 11 cytes informa l informa 2016 [Presen tion in tion in 6:10 PM ce] in source source Urine data data Color YELLOW YELLOW No No No Dec 11 of informa informa informa 2016 Urine tion in tion in tion in 6:10 PM source source source data data data Glucose NEG No No No Dec 11 [Mass/vol informati informati informati 2016 6:10 ume] in on in on in on in PM Urine by source source source Test data data data strip Ketones NEGATIV NEG mg/dL No No Dec 11 E informa informa 2016 [Presen tion in tion in 6:10 PM ce] in source source Urine data data by Automat ed test strip Mucus 3+ NEG No Abnorma No Dec 11 [Presen informa l informa 2016 ce] in tion in tion in 6:10 PM Urine source source sedimen data data t by Light microsc opy Nitrite POSITIV NEG No Abnorma No Dec 11 E informa l informa 2016 [Presen tion in tion in 6:10 PM ce] in source source Urine data data by Test strip pH of 5.0 - 8.5 No Normal No Dec 11 Urine informati informati 2017 6:10 on in on in PM source source data data Protein NEG mg/dL High No Dec 11 [Mass/vol informati 2017 6:10 ume] in on in PM Urine by source Automated data test strip Specific 1.005 - No Normal No Dec 11 gravity 1.030 informati informati 2017 6:10 of Urine on in on in PM source source data data Urobili 0.2 NEG E.U./dL No No Dec 11 nogen informa informa 2017 [Presen tion in tion in 6:10 PM ce] in source source Urine data data by Test strip Digoxin [Mass/volume] in Serum or Plasma Observa Value Referen Units Interpr Notes Date tion ce etation Range Digoxin 1.15 - ng/mL Normal No Dec 11 [Mass/vol 2.56 informati 2016 5:55 ume] in on in PM Serum or source Plasma data INR in Blood by Coagulation assay Observa Value Referen Units Interpr Notes Date tion ce etation Range IS PATIENT ON ANTICOAGULANTS? Y LIST ANTICOAGULANTS: WARFARIN INR in 0.9 - 1.1 No High INDICATIO Dec 11 Blood by informati N 2016 5:55 Coagulati on in PM on assay source INR data RANGETHER APY FOR DVT, PE, ATRIAL FIB; 2.0 - 3.0PROPHY LAXIS FOR VTETHERAP Y FOR MECHANICA L HEART 2.5 - 3.5VALVE; PREVENTIO N OF SYSTEMICE MBOLISM SECONDARY TO AMI Prothromb 9.4 - SECONDS High No Dec 11 in time 11.8 informati 2016 5:55 (PT) in on in PM Platelet source poor data plasma by Coagulati on assay CBC W Auto Differential panel in Blood Observa Value Referen Units Interpr Notes Date tion ce etation Range Basophils 0 - 0.2 K/MM3 Normal No Dec 11 informati 2016 5:55 [#/volume on in PM ] in source Blood by data Automated count Basophils 0.1 - 2.0 % Normal No Dec 11 /100 informati 2016 5:55 leukocyte on in PM s in source Blood by data Automated count Leukocyte No K/mm3 No No Dec 11 s informati informati informati 2016 5:55 [#/volume on in on in on in PM ] source source source corrected data data data for nucleated erythrocy brynn in Blood Eosinophi 0.0 - 0.4 K/mm3 Normal No Dec 11 ls informati 2016 5:55 [#/volume on in PM ] in source Blood by data Automated count Eosinophi 0.1 - % Normal No Dec 11 ls/100 12.0 informati 2016 5:55 leukocyte on in PM s in source Blood by data Automated count Granulocy 1.8 - 7.8 K/mm3 High No Dec 11 brynn informati 2016 5:55 [#/volume on in PM ] in source Blood by data Automated count Granulocy 37.0 - % Normal No Dec 11 brynn/100 80.0 informati 2017 5:55 leukocyte on in PM s in source Blood by data Automated count Hematocri 37.0 - % Normal No Dec 11 t [Volume 47.0 informati 2017 5:55 on in PM Fraction] source of Blood data Hemoglobi 12.2 - g/dL Low No Dec 11 n 16.2 informati 2017 5:55 [Mass/vol on in PM ume] in source Blood data Lymphocyt 0.7 - 4.5 K/mm3 Normal No Dec 11 es informati 2017 5:55 [#/volume on in PM ] in source Unspecifi data ed specimen by Automated count Lymphocyt 10 - 50.0 % Normal No Dec 11 es informati 2017 5:55 [#/volume on in PM ] in source Unspecifi data ed specimen by Automated count Erythrocy 27 - 31.2 pg Normal No Dec 11 te mean informati 2017 5:55 corpuscul on in PM ar source hemoglobi data n [Entitic mass] Erythrocy 31.8 - g/dl Low No Dec 11 te mean 35.4 informati 2017 5:55 corpuscul on in PM ar source hemoglobi data n concentra tion [Mass/vol ume] by Automated count Erythrocy 82.2 - fl Normal No Dec 11 te mean 97.8 informati 2017 5:55 corpuscul on in PM ar volume source [Entitic data volume] by Automated count Monocytes 0.1 - 1.0 K/mm3 High No Dec 11 informati 2017 5:55 [#/volume on in PM ] in source Blood by data Automated count Monocytes 1.7 - 9.3 % Normal No Dec 11 /100 informati 2017 5:55 leukocyte on in PM s in source Blood by data Automated count Platelet 7.4 - fl Normal No Dec 11 mean 10.4 informati 2017 5:55 volume on in PM [Entitic source volume] data in Blood by Automated count Platelets 142 - 424 K/mm3 No No Dec 11 informati informati 2017 5:55 [#/volume on in on in PM ] in source source Blood data data Erythrocy 4.2 - 5.4 M/mm3 Normal No Dec 11 brynn informati 2017 5:55 [#/volume on in PM ] in source Amniotic data fluid Erythrocy 11.5 - % Normal No Dec 11 te 17.5 informati 2016 5:55 distribut on in PM ion width source [Entitic data volume] by Automated count Leukocyte 4.8 - K/MM3 High No Dec 11 s 10.8 informati 2016 5:55 [#/volume on in PM ] in source Blood data Differential panel, method unspecified - Observa Value Referen Units Interpr Notes Date tion ce etation Range Anisocy 1+ No No No No Dec 11 tosis informa informa informa informa 2016 [Presen tion in tion in tion in tion in 5:55 PM ce] in source source source source Blood data data data data Neutrophi 0 - 8 % Normal No Dec 11 ls.band informati 2017 5:55 form/100 on in PM leukocyte source s in data Blood by Automated count Eosinophi 0 - 3 % Normal No Dec 11 ls/100 informati 2016 5:55 leukocyte on in PM s in source Blood by data Manual count LYMPH 22 10 - 50 % Normal No Dec 11 inform2016 tion in 5:55 PM source data Monocytes 2 - 9 % Normal No Nov 21 /100 informati 2017 5:55 leukocyte on in PM s in source Blood by data Automated count Nucleated 0 - 1 % Normal No Dec 11 informati 2017 5:55 erythrocy on in PM brynn source [#/volume data ] in Blood Platele NORMAL No No No No Dec 11 ts informa informa informa informa 2016 [Presen tion in tion in tion in tion in 5:55 PM ce] in source source source source Blood data data data data by Light microsc opy Neutrophi 42 - 76 % Normal No Dec 11 ls informati 2016 5:55 [#/volume on in PM ] in source Blood by data Automated count Cells No #CELLS No No Dec 11 Counted informati informati informati 2017 5:55 Total [#] on in on in on in PM in Blood source source source data data data Comprehensive metabolic 2000 panel in Serum or Plasma Observa Value Referen Units Interpr Notes Date tion ce etation Range Albumin/G 1.1 - 1.8 No Low No Dec 11 lobulin informati informati 2016 5:55 [Mass on in on in PM ratio] in source source Serum or data data Plasma Albumin 3.4 - 5.0 gm/dL Low No Dec 11 [Mass/vol informati 2017 5:55 ume] in on in PM Serum or source Plasma data Alkaline 46 - 116 U/L High No Dec 11 phosphata informati 2017 5:55 se on in PM [Enzymati source c data activity/ volume] in Serum or Plasma Bilirubin 0.2 - 1.0 mg/dL Normal No Dec 11 .total informati 2016 5:55 [Mass/vol on in PM ume] in source Serum or data Plasma Urea 7 - 18 mg/dL High No Dec 11 nitrogen informati 2017 5:55 [Mass/vol on in PM ume] in source Serum or data Plasma Calcium 8.5 - mg/dL Normal No Dec 11 [Mass/vol 10.1 informati 2016 5:55 ume] in on in PM Serum or source Plasma data Chloride 98 - 107 mmoL/L Normal No Dec 11 [Moles/vo informati 2016 5:55 lume] in on in PM Serum or source Plasma data Carbon 21.0 - mmoL/L Normal No Dec 11 dioxide, 32.0 informati 2016 5:55 total on in PM [Moles/vo source lume] in data Serum or Plasma Creatinin 0.55 - mg/dL High No Dec 11 e 1.02 informati 2016 5:55 [Mass/vol on in PM ume] in source Serum or data Plasma Creatinin 50 - 200 ML/MIN Low No Dec 11 e renal informati 2016 5:55 clearance on in PM source predicted data by Cockcroft -Gault formula Estimated 59- ML/MIN Low REFERENCE Dec 11 RANGE: 2017 5:55 glomerula >60 PM r ML/MIN/1. filtratio 73 SQUARE n rate METERSIf (GF this patient is -A merican, then multiply theresult by 1.210. Globulin 1.3 - 3.2 gm/dL High No Dec 11 [Mass/vol informati 2017 5:55 ume] in on in PM Serum source data Glucose 74 - 106 mg/dL High No Dec 11 [Mass/vol informati 2017 5:55 ume] in on in PM Serum or source Plasma data Potassium 3.5 - 5.1 mmoL/L Normal No Dec 11 informati 2016 5:55 [Moles/vo on in PM lume] in source Serum or data Plasma Sodium 136 - 145 mmoL/L Low No Dec 11 [Moles/vo informati 2016 5:55 lume] in on in PM Serum or source Plasma data Aspartate 15 - 37 U/L Normal No Dec 11 informati 2016 5:55 aminotran on in PM sferase source [Enzymati data c activity/ volume] in Serum or Plasma Alanine 12 - 78 U/L Normal No Dec 11 aminotran informati 2016 5:55 sferase on in PM [Enzymati source c data activity/ volume] in Serum or Plasma Protein 6.4 - 8.2 gm/dL Normal No Dec 11 [Mass/vol informati 2016 5:55 ume] in on in PM Serum or source Plasma data Urinalysis dipstick W Reflex Microscopic panel in Urine Observa Value Referen Units Interpr Notes Date tion ce etation Range Appeara CLEAR CLEAR No No No Dec 10 nce of informa informa informa 2017 Urine tion in tion in tion in 10:45 source source source AM data data data Bacteri 3+ O No No No Dec 10 a informa informa informa 2016 [Presen tion in tion in tion in 10:45 ce] in source source source AM Urine data data data sedimen t by Light microsc opy Bilirub NEGATIV NEG No No No Dec 10 in E informa informa informa 2016 [Presen tion in tion in tion in 10:45 ce] in source source source AM Urine data data data by Test strip Erythro 3+ NEG No Abnorma No Dec 10 cytes informa l informa 2016 [Presen tion in tion in 10:45 ce] in source source AM Urine data data Color YELLOW YELLOW No No No Dec 10 of informa informa informa 2016 Urine tion in tion in tion in 10:45 source source source AM data data data Glucose NEG No High No Dec 10 [Mass/vol informati informati 2016 ume] in on in on in 10:45 AM Urine by source source Test data data strip Ketones NEGATIV NEG mg/dL No No Dec 10 E informa informa 2016 [Presen tion in tion in 10:45 ce] in source source AM Urine data data by Automat ed test strip Mucus 2+ NEG No Abnorma No Dec 10 [Presen informa l informa 2016 ce] in tion in tion in 10:45 Urine source source AM sedimen data data t by Light microsc opy Nitrite NEGATIV NEG No No No Dec 10 E informa informa informa 2017 [Presen tion in tion in tion in 10:45 ce] in source source source AM Urine data data data by Test strip pH of 5.0 - 8.5 No Normal No Remi 20 Urine informati informati 2017 on in on in 10:45 AM source source data data Protein NEG mg/dL High No Nov 20 [Mass/vol informati 2017 ume] in on in 10:45 AM Urine by source Automated data test strip Specific 1.005 - No Normal No Dec 10 gravity 1.030 informati informati 2017 of Urine on in on in 10:45 AM source source data data Epithel 3-5 0 - 5 #/hpf No No Dec 10 ial informa informa 2017 cells.s tion in tion in 10:45 quamous source source AM data data [Presen ce] in Urine sedimen t by Microsc opy high power field Urobili 0.2 NEG E.U./dL No No Dec 10 nogen informa informa 2017 [Presen tion in tion in 10:45 ce] in source source AM Urine data data by Test strip Leukocy [10 O wbc/hpf No No Nov 20 brynn wbc/hpf informa informa 2017 [#/volu ; 20 tion in tion in 10:45 me] in wbc/hpf source source AM Urine ] data data Urinalysis dipstick W Reflex Microscopic panel in Urine Observa Value Referen Units Interpr Notes Date tion ce etation Range Appeara CLEAR CLEAR No No No Dec 10 nce of informa informa informa 2017 Urine tion in tion in tion in 10:45 source source source AM data data data Bilirub NEGATIV NEG No No No Nov 20 in E informa informa informa 2017 [Presen tion in tion in tion in 10:45 ce] in source source source AM Urine data data data by Test strip Erythro 3+ NEG No Abnorma No Nov 20 cytes informa l informa 2016 [Presen tion in tion in 10:45 ce] in source source AM Urine data data Color YELLOW YELLOW No No No Remi 20 of informa informa informa 2017 Urine tion in tion in tion in 10:45 source source source AM data data data Glucose NEG No High No Remi 20 [Mass/vol informati informati 2016 ume] in on in on in 10:45 AM Urine by source source Test data data strip Ketones NEGATIV NEG mg/dL No No Dec 10 E informa informa 2016 [Presen tion in tion in 10:45 ce] in source source AM Urine data data by Automat ed test strip Mucus 2+ NEG No Abnorma No Dec 10 [Presen informa l inform2016 ce] in tion in tion in 10:45 Urine source source AM sedimen data data t by Light microsc opy Nitrite NEGATIV NEG No No No Dec 10 E informa informa informa 2016 [Presen tion in tion in tion in 10:45 ce] in source source source AM Urine data data data by Test strip pH of 5.0 - 8.5 No Normal No Dec 10 Urine informati informati 2017 on in on in 10:45 AM source source data data Protein NEG mg/dL High No Dec 10 [Mass/vol informati 2016 ume] in on in 10:45 AM Urine by source Automated data test strip Specific 1.005 - No Normal No Dec 10 gravity 1.030 informati informati 2016 of Urine on in on in 10:45 AM source source data data Urobili 0.2 NEG E.U./dL No No Dec 10 nogen informa informa 2016 [Presen tion in tion in 10:45 ce] in source source AM Urine data data by Test strip Cardiac enzymes Observa Value Referen Units Interpr Notes Date ti ce etation Range Creatine 0 - 4.0 U/L Normal No November 05 kinase.MB informati 2017 1:20 /Creatine on in PM source kinase.to data temi [Ratio] in Serum or Plasma Creatine 0.0 - 3.6 ng/mL Normal No November 05 kinase.MB informati 2016 1:20 on in PM [Mass/vol source ume] in data Serum or Plasma Creatine 26 - 192 U/L Normal No November 05 kinase informati 2017 1:20 [Enzymati on in PM c source activity/ data volume] in Serum or Plasma Troponin 0.00 - ng/mL Normal No November 05 I.cardiac 0.06 informati 2017 1:20 on in PM [Mass/vol source ume] in data Serum or Plasma Comprehensive metabolic 2000 panel in Serum or Plasma Observa Value Referen Units Interpr Notes Date tion ce etation Range Albumin/G 1.1 - 1.8 No Low No November 05 lobulin informati informati 2016 1:20 [Mass on in on in PM ratio] in source source Serum or data data Plasma Albumin 3.4 - 5.0 gm/dL Low No November 05 [Mass/vol informati 2016 1:20 ume] in on in PM Serum or source Plasma data Alkaline 46 - 116 U/L High No November 05 phosphata informati 2016 1:20 se on in PM [Enzymati source c data activity/ volume] in Serum or Plasma Bilirubin 0.2 - 1.0 mg/dL Normal No November 05 .total informati 2016 1:20 [Mass/vol on in PM ume] in source Serum or data Plasma Urea 7 - 18 mg/dL High No November 05 nitrogen informati 2016 1:20 [Mass/vol on in PM ume] in source Serum or data Plasma Calcium 8.5 - mg/dL Normal No November 05 [Mass/vol 10.1 informati 2016 1:20 ume] in on in PM Serum or source Plasma data Chloride 98 - 107 mmoL/L Low No November 05 [Moles/vo informati 2016 1:20 lume] in on in PM Serum or source Plasma data Carbon 21.0 - mmoL/L Normal No November 05 dioxide, 32.0 informati 2016 1:20 total on in PM [Moles/vo source lume] in data Serum or Plasma Creatinin 0.55 - mg/dL High No November 05 e 1.02 informati 2016 1:20 [Mass/vol on in PM ume] in source Serum or data Plasma Creatinin 50 - 200 ML/MIN Low No November 05 e renal informati 2016 1:20 clearance on in PM source predicted data by Cockcroft -Gault formula Estimated 59- ML/MIN Low REFERENCE November 05 RANGE: 2017 1:20 glomerula >60 PM r ML/MIN/1. filtratio 73 SQUARE n rate METERSIf (GF this patient is -A merican, then multiply theresult by 1.210. Globulin 1.3 - 3.2 gm/dL High No November 05 [Mass/vol informati 2016 1:20 ume] in on in PM Serum source data Glucose 74 - 106 mg/dL High No November 05 [Mass/vol informati 2016 1:20 ume] in on in PM Serum or source Plasma data Potassium 3.5 - 5.1 mmoL/L Normal No November 052016 1:20 [Moles/vo on in PM lume] in source Serum or data Plasma Sodium 136 - 145 mmoL/L Low No November 05 [Moles/vo 2016 1:20 lume] in on in PM Serum or source Plasma data Aspartate 15 - 37 U/L Normal No November 052016 1:20 aminotran on in PM sferase source [Enzymati data c activity/ volume] in Serum or Plasma Alanine 12 - 78 U/L Normal No November 05 aminotran 2016 1:20 sferase on in PM [Enzymati source c data activity/ volume] in Serum or Plasma Protein 6.4 - 8.2 gm/dL High No November 05 [Mass/vol 2016 1:20 ume] in on in PM Serum or source Plasma data CBC W Auto Differential panel in Blood Observa Value Referen Units Interpr Notes Date tion ce etation Range Basophils 0 - 0.2 K/MM3 Normal No November 052016 1:20 [#/volume on in PM ] in source Blood by data Automated count Basophils 0.1 - 2.0 % Normal No November 052016 1:20 leukocyte on in PM s in source Blood by data Automated count Eosinophi 0.0 - 0.4 K/mm3 Normal No November 05 ls 2016 1:20 [#/volume on in PM ] in source Blood by data Automated count Eosinophi 0.1 - % Normal No November 05 ls/100 12.0 ati 2016 1:20 leukocyte on in PM s in source Blood by data Automated count Granulocy 1.8 - 7.8 K/mm3 Normal No November 05 brynn 2016 1:20 [#/volume on in PM ] in source Blood by data Automated count Granulocy 37.0 - % Normal No November 05 brynn/100 80.0 ati 2016 1:20 leukocyte on in PM s in source Blood by data Automated count Hematocri 37.0 - % Normal No November 05 t [Volume 47.0 ati 2016 1:20 on in PM Fraction] source of Blood data Hemoglobi 12.2 - g/dL No No November 05 n 16.2 informati informati 2016 1:20 [Mass/vol on in on in PM ume] in source source Blood data data Lymphocyt 0.7 - 4.5 K/mm3 High No November 05 es informati 2016 1:20 [#/volume on in PM ] in source Unspecifi data ed specimen by Automated count Lymphocyt 10 - 50.0 % Normal No November 05 es inform2016 1:20 [#/volume on in PM ] in source Unspecifi data ed specimen by Automated count Erythrocy 27 - 31.2 pg Normal No November 05 te mean inform2016 1:20 corpuscul on in PM ar source hemoglobi data n [Entitic mass] Erythrocy 31.8 - g/dl Normal No November 05 te mean 35.4 informati 2016 1:20 corpuscul on in PM ar source hemoglobi data n concentra tion [Mass/vol ume] by Automated count Erythrocy 82.2 - fl Normal No November 05 te mean 97.8 informati 2016 1:20 corpuscul on in PM ar volume source [Entitic data volume] by Automated count Monocytes 0.1 - 1.0 K/mm3 Normal No November 052016 1:20 [#/volume on in PM ] in source Blood by data Automated count Monocytes 1.7 - 9.3 % Normal No November 05 /100 informati 2016 1:20 leukocyte on in PM s in source Blood by data Automated count Platelet 7.4 - fl Low No November 05 mean 10.4 informati 2016 1:20 volume on in PM [Entitic source volume] data in Blood by Automated count Platelets 142 - 424 K/mm3 High No November 05ati 2016 1:20 [#/volume on in PM ] in source Blood data Erythrocy 4.2 - 5.4 M/mm3 Normal No November 05 brynn informati 2016 1:20 [#/volume on in PM ] in source Amniotic data fluid Erythrocy 11.5 - % High No November 05 te 17.5 informati 2016 1:20 distribut on in PM ion width source [Entitic data volume] by Automated count Leukocyte 4.8 - K/MM3 Normal No November 05 s 10.8 informati 2016 1:20 [#/volume on in PM ] in source Blood data INR in Blood by Coagulation assay Observa Value Referen Units Interpr Notes Date tion ce etation Range IS PATIENT ON ANTICOAGULANTS? Y LIST ANTICOAGULANTS: COUMADIN INR in 0.9 - 1.1 No High INDICATIO November 05 Blood by informati N 2017 1:20 Coagulati on in PM on assay source INR data RANGETHER APY FOR DVT, PE, ATRIAL FIB; 2.0 - 3.0PROPHY LAXIS FOR VTETHERAP Y FOR MECHANICA L HEART 2.5 - 3.5VALVE; PREVENTIO N OF SYSTEMICE MBOLISM SECONDARY TO AMI Prothromb 9.4 - SECONDS High No November 05 in time 11.8 informati 2017 1:20 (PT) in on in PM Platelet source poor data plasma by Coagulati on assay Activated partial thrombplastin time (aPTT) in Platelet poor plasma by Coagulation assay Observa Value Referen Units Interpr Notes Date tion ce etation Range IS PATIENT ON ANTICOAGULANTS? Y LIST ANTICOAGULANTS: COUMADIN Activated 23.6 - SECONDS High RESULTS November 05 partial 34.0 CALLED TO 2017 1:20 thrombpla PM stin time PHARMACIS (aPTT) T: in ER/RAVI.WH Platelet ES// poor 7 1340 plasma by Raman De La Fuente Coagulrudy [place] on assay Glucose [Mass/volume] in Capillary blood by Glucometer Observa Value Referen Units Interpr Notes Date tion ce etation Range Glucose 70 - 110 mg/dl High No November 05 [Mass/vol informati 2017 1:13 ume] in on in PM Capillary source blood by data Glucreina r
--- OUTSIDE RECORDS SUMMARY | 2017-05-10 20:32 | External Medical Summary Rpt ---
Author Author [employer], [employer] Address Unknown Phone Unavailable [...] [facility] PM g enzyme source [Enzymati data [id number], volume] [place], in Serum [place] or Plasma [id number] University Relations Director: Juan Hawk PhD, Phone: [phone] Cobalamin (Vitamin B12) [Mass/volume] in Serum Observa Value Referen Units Interpr Notes ti ce etation Range Cobalamin 211 - 946 pg/mL No Performed Dec 31 (Vitamin informati at: CB 2016 4:01 B12) on in - [facility] PM [Mass/vol source ume] in data [id number] Serum [address], [place], [place] [id number] University Relations Director: Juan Hawk PhD, Phone: [phone] Folate [Mass/volume] in Serum or Plasma [...] scan will follow via compute r,mail, or impregnator and drier helper deliver Lacy rmed at: - [facility] [id number] Directo r: Juan acevedo PhD, Phone: [phone] Albumin 2.9 - 4.4 g/dL Low No [...] rmed data data data at: - [facility] [address] [id number] Directo r: Anshu Ram MD, Phone: [phone] Glucose [Mass/volume] in Capillary blood by Glucometer [...]
[2017-05-10 20:35] LABS: LYMPH # 3.2 K/mm3 (0.7-4.5)
[2017-05-10 20:49] LABS: HEMOGLOBIN 9.6 g/dL (12.2-16.2)
[2017-05-10] MEDS ORDERED: LORAZEPAM0.5 MG/TAB PO (21:02)
[2017-05-10] MEDS ORDERED: CLOPIDOGREL75 MG PO (21:04)
[2017-05-10] MEDS ORDERED: DIGOXIN0.125 MG PO (21:04)
[2017-05-10] MEDS ORDERED: DILTIAZEM 180180 MG PO (21:05)
[2017-05-10] MEDS ORDERED: DOCUSATE SODIU100 MG PO (21:08)
--- NOTE | 2017-05-10 21:20 | Emergency Room Report ---
History of Present Illness Time Seen by 2014 Presenting Problem in Triage Pt arrived:Ambulance Stretcher Presenting Problem:SENT FOR GI EVAL; PT REPORTEDLY WENT TO [facility], AFTER HAVING HAD STOMACH PAIN NOTED LARGE AMOUNTS OF CLOTS Onset of symptoms date/time:/ or onset unknown for:MEDICAL HX UNKNOWN Treatment Prior to Arrival: SOLAR PHOTOVOLTAIC CREW LEAD Provided by: Sepsis Risk Assessment: Temp: 98 B/P: 132/86 MAP: 101 Pulse: 101 Resp: 18 Recent fever? N Clinical Suspician of Infection? N Mental Status: 1 - Regular (Normal Baseline) Sepsis Risk:Low Sepsis Risk Have you (or family members/close friends) recently traveled outside the [place]? N If Yes, where/when: Have you had exposure to infectious disease within the past month? TB? Other? Specify: Source patient, RN notes reviewed, EMS, group home records, old records Exam Limitations no limitations Comment this wf with ongoing colitis from c diff and on vancomycin with hx of acute lower gi bleed this pm - pt on coumadin for ht valves - no vomiting Cardiac Chest Pain Chest pain indicative of cardiac No Timing/Duration this evening Severity moderate ALLERGIES Coded Allergies: Nsxqlmv-Hjg-Dia Reductase Inhibitor (05/10/17) gabapentin (SWELLING 05/10/17) Home Medications Active Scripts Digoxin (Digitek) 0.125 MCG PO DAILY #30 TAB Ref 1 Prov: 06/05/16 CEPHALEXIN (Keflex 500MG Capsule) 500 MG PO Q8H #15 CAP Prov: 01/03/17 ENOXAPARIN SODIUM (Lovenox) 65 MG SC BID #3 INJ Prov: 01/03/17 Famotidine (Famotidine 20MG) 20 MG PO BID #30 TAB Prov: 11/29/13 Reported Medications Lorazepam (Lorazepam 0.5MG) 0.5 MG PO BID CHOLECALCIFEROL (VITAMIN D3) (Vitamin D) 2,000 IU PO DAILY NITROGLYCERIN (Nitrostat) 0.4 MG SL [id number] PRN CHEST PAIN Warfarin Sodium (Warfarin 4MG) 4 MG PO @1700 Pregabalin (Lyrica) 150 MG PO BID Ondansetron Hydrochloride (Ondansetron 4MG U/D TABLET (NON-CHEMO USE)) 4 MG PO Q8HP PRN NAUSEA WARFARIN SOD (Warfarin 3MG) 3 MG PO @1700 CLOPIDOGREL BISULFATE (PLAVIX) 75 MG PO DAILY Fluticasone Propionate (Flonase 50 Mcg Nasal [place]) 1 SPRAY NA DAILY CARBOXYMETHYLCELLULOSE SODIUM (Lubricating Plus) 1 DROP OP QHS TIZANIDINE HCL (Zanaflex) 4 MG PO Q8 DILTIAZEM HCL (Diltiazem 24HR Cd) 240 MG PO DAILY INSULIN NPH HUM/REG INSULIN HM (Novolin 70-30 100 Unit/Ml Vial) 32 UNITS SC DAILY Nicotine (Nicotine Patch) 21 MG TD DAILY Polyethylene Glycol 3350 (Miralax) 17 GM PO DAILY Acetaminophen (Tylenol XS 500MG) 500 MG PO Q4HP PRN PAIN Guaifenesin (Robitussin Plain Syr 200MG/10ML Udc) 10 ML PO Q4HP PRN COUGH POTASSIUM CHL (Potassium Chloride) 10 MEQ PO DAILY Docusate Sodium 250 MG PO DAILY INSULIN GLARGINE (Lantus 3ML Solostar Pen) 35 UNITS SC QHS Furosemide (Furosemide 40MG) 40 MG PO DAILY Paroxetine HCl (Paxil) 40 MG PO DAILY Lorazepam (Lorazepam 0.5MG) 0.5 MG FT TID CLOPIDOGREL BISULFATE (Clopidogrel 75MG) 75 MG PO DAILY DIGOXIN (Digox) 0.125 MG PO DAILY DILTIAZEM HCL (Tiazac) 180 MG PO DAILY Docusate Sodium 100 MG PO DAILYP PRN STOOL SOFTENER History Medical History General CAD? Yes Angina: Yes NC: Yes Hypertension? Yes Hyperlipidemia? Yes CHF? Yes DVT? No PE? No COPD? Yes Asthma? No Anemia? No GERD? Yes Gastric ulcers? No GI Bleed? Yes Hernia? No Thyroid Problems? No Hypothyroidism? Yes CVA? Yes Seizures? No Diabetes? Yes Insulin Dependent: Yes Insulin Pump: No Home FSBS? Yes Renal Insuffiency? No End Stage Renal Disease? No UTI? Yes Stones? No BPH? No GB Disease: No Nephritic Syndrome? No Asplenia? No Hepatitis? No Sickle Cell Disease? No Arthritis? Yes Migraines? No Cataracts? Yes Glaucoma? No MRSA? No HIV? No TB? No Anxiety? Yes Depression? Yes Cancer? Yes Site: cervical More? Yes Additional hx: Chronic A Fib STENTS heart failure dysphasia Immunization Hx Ped.Immunizations UTD Yes DT/Tetanus Unknown Flu 2016-17FSN Pneumonia Received In Past Surgical Hx Previous Surgery?Y BILAT HIP REPLACEMENT SPINAL FUSION L4&5 STENT X4 IN HEART MITRAL/AORTIC VALVES HysterectOMY CARDIAC STENT CARDIAC STENTS 2016 X3 CARDIAC STENTS 2017 Family History Family Hx Diabetes Yes CAD Yes Hypertension Yes Hyperlipidemia Yes Cancer Yes TB No Social History Smoking Hx Smoker: Former Smoker Tobacco: Yes Type Cigarettes Packs/day 1 1/2 - 2 Packs Alcohol Alcohol: No Drugs none Review of Systems All Other Systems Reviewed and Negative Constitutional denies fever Eyes denies drainage ENT denies: ear pain, epistaxis. Respiratory denies cough, denies shortness of breath, denies wheezing Cardiovascular denies chest pain, denies palpitations, denies syncope Gastrointestinal see HPI, abdominal pain, diarrhea, nausea, denies vomiting Genitourinary denies: dysuria, frequency. Musculoskeletal denies back pain, denies joint pain, denies joint swelling, denies neck pain Skin denies rash Psychiatric/Neurological denies headache, denies seizure Physical Exam Vital Signs Vital Signs Date Time Temp Pulse Resp B/P Pulse O2 O2 Flow FiO2 Ox Delivery Rate 05/10 2008 98.0 101 18 132/86 98 - WBC >12,000 or <4,000 or 10% bands? 2 or more SIRS Criteria Met? B/P:121/73 MAP:101 Creatinine >2.0? UA output<0.5ml/kg/hr for 2 hrs? Platelet count >100,000? Lactate >2.0mmol/1? INR >1.2 or PTT > than 60 sec? Evidence of Organ Dysfunction? Provider documented clinical suspician of infection? N Sepsis Criteria Count: 1 Sepsis Risk: Low Sepsis Risk General Appearance no apparent distress Eye Exam - bilateral eye PERRL, bilateral eye EOMI Ear, Nose, Throat normal ENT inspection Neck non-tender Respiratory Status No: respiratory distress. Lung Sounds bilateral: lungs clear. Cardiovascular systolic murmur, irregularly irregular Peripheral Pulses Pulses normal Yes Gastrointestinal soft, no organomegaly, no guarding, no rebound, tenderness Extremities no calf tenderness Strength 4 Upper Ext (L), 4 Upper Ext (R), 4 Lower Ext (L), 4 Lower Ext (R) Neurologic alert, exhibits coordinator II-XII nml as tested, no motor/sensory deficits Reflexes Reflexes normal No Mental status normal mood/affect Skin intact Medical Decision Making LABS/Meds/Orders Pt receiving controlled substance in ED? No Results/Orders Laboratory Tests 05/10/172019: Sodium 137, Potassium 4.3, Chloride 102, Carbon Dioxide 27, BUN 33 H, Creatinine 1.8 H, Estimated Creat Clear 31 L, Estimated GFR (MDRD) 28 L, Glucose 141 H, Calcium 8.7, Total Bilirubin 0.2, AST 21, ALT 14, Alkaline Phosphatase 109, Total Protein 7.7, Albumin 2.4 L, Globulin 5.3 H, Albumin/ Globulin Ratio 0.5 L, Amylase 73, Lipase 212, PT 11.7, INR 1.08, WBC 12.3 H, RBC 3.75 L, Hgb 9.6 L, Hct 30.0 L, MCV 79.8 L, RDW 17.2, Plt Count 565 H, MPV 9.0, Gran % 66.3, Gran # 8.1 H, Lymphocytes % 26.0, Monocytes % 5.9, Eosinophils % 1.3, Basophils % 0.5, Lymphocytes # 3.2, Monocytes # 0.7, Eosinophils # 0.2, Basophils # 0.1, PUBS MCHC 32.0, MCH 25.5 L, Digoxin 1.13 L Current Medication Orders Sig/Pawan Start time Last Medication Dose Route Stop Time Status Admin Enoxaparin Sodium 65 MG ONCE ONE 05/10 2245 DC 05/10 SC 05/10 2246 2243 Metronidazole 100 ML ONCE ONE 05/10 2245 AC 05/10 IV 05/10 2344 2243 Sodium Chloride 100 ML .STK-MED ONE 05/10 2240 DC IV Enoxaparin Sodium 0 .STK-MED ONE 05/10 2239 DC SC Pantoprazole Sodium 0 .STK-MED ONE 05/10 2141 DC IV Sodium Chloride 100 ML .STK-MED ONE 05/10 2139 DC IV Sodium Chloride 100 ML .STK-MED ONE 05/10 2136 DC IV Pantoprazole Sodium 80 MG .Q10H 05/10 2135 AC 05/10 Sodium Chloride 100 ML IV 05/13 Sodium Chloride 50 ML .STK-MED ONE 05/10 2046 DC IV Pantoprazole Sodium 0 .STK-MED ONE 05/10 2045 DC IV Sodium Chloride 0 .STK-MED ONE 05/10 2045 DC IV Pantoprazole Sodium 80 MG ONCE ONE 05/10 2030 DC 05/10 Sodium Chloride 100 ML IV 05/10 Pantoprazole Sodium 40 MG ONCE ONE 05/10 2030 DC 05/10 IV 05/10 Sodium Chloride 10 ML PRN PRN 05/10 2030 AC IV 05/11 2024 Sodium Chloride 10 ML ONCE ONE 05/10 2030 DC IV 05/10 2031 Pantoprazole Sodium 0 .STK-MED ONE 05/10 2029 DC IV Orders Procedure Date/time Status DIET-NOTHING BY MOUTH 05/11 B Active TYPE FOR CROSSMATCH 05/10 2239 Active Decision to admit 05/10 2238 Active DIGOXIN 05/[address] ABD & PELVIS W/O CONTRAST 05/[address] ABD/PELVIS REQ 05/10 2027 Complete IV SALINE LOCK 05/10 2027 Active PROTHROMBIN TIME 05/10 2027 Complete LIPASE 05/10 2027 Complete CBC WITH AUTO DIFF 05/10 2027 Complete CHEM 12 PROFILE 05/10 2027 Complete AMYLASE 05/10 2027 Complete CM/EKG CM/rim buster Rhythm Atrial Fibrillation EKG non-spec. ST/Twave chgs XRAY/CT/US XRAY/CT/US CT abdomen, pelvis CT interpretation by discussed w/radiologist Time results known: 225 CT Results abnormal (see report) Departure Departure Time of Disposition 2229 Disposition Still a Patient Clinical Impression Primary Impression: Acute lower GI bleeding Secondary Impressions: A-fib Qualifiers: Atrial fibrillation type: chronic Qualified Code: I48.2 - Chronic atrial fibrillation Anemia Qualifiers: Anemia type: unspecified type Qualified Code: D64.9 - Anemia, unspecified Colitis due to Clostridium difficile Mechanical heart valve present Renal insufficiency Condition STABLE Referrals Tori CRUZ,Joaquin Thornton (Family) ED Critical Care Critical Care No at 225
--- OUTSIDE RECORDS SUMMARY | 2017-05-10 22:44 | External Medical Summary Rpt | CCD ---
Author Author , MANOJ Organization MANOJ Address Unknown Phone [email or web address] Care Team Providers Care Merchandising Team Lead Name Role Phone Galen Marcos MD, Unavailable Unavailable Galen TSAI, Unavailable Unavailable Danielle TSAI Purpose Continuity of Care Document - 02-15-2013 through 2016 Problems Code Diagnosis DOS Provider Status [id number] Chest pain [facility] [id number] Diabetes [facility] type 2 [facility] 462 Sore throat [facility] 786.7 [id number] Chronic [facility] B19.20 UNSPECIFIED VIRAL HEPATITIS C WITHOUT HEPATIC COMA E10.9 TYPE 1 DIABETES MELLITUS WITHOUT COMPLICATIO NS E11.9 TYPE 2 DIABETES MELLITUS WITHOUT COMPLICATIO NS E16.2 HYPOGLYCEMI A, UNSPECIFIED E86.0 DEHYDRATION E87.1 HYPO-OSMOLA LITY AND HYPONATREMI A E87.5 HYPERKALEMI A G89.18 OTHER ACUTE POSTPROCEDU RAL PAIN I21.4 NON-ST ELEVATION (NSTEMI) MYOCARDIAL INFARCTION I25.10 ATHSCL HEART DISEASE OF [place] CORONARY ARTERY W/O ANG PCTRS I48.91 UNSPECIFIED [...] UNSPECIFIED INTRA-ABDOM INAL ORGAN, INIT ENCNTR Z79.01 RESIDENTIAL (CURRENT) USE OF ANTICOAGULA NTS Z95.2 PRESENCE [...] Order Detail nces retati t Range on CBC w auto diff (05-10-2017 20:20) Automat = 0.1 0-0.2 complet ed 017 K/MM3 ed blood 20:20 basophi l count (count/ vo Baso % = 0.5 % 0.1-2.0 complet 017 ed 20:20 Automat = 0.2 0.0-0.4 complet ed 017 K/mm3 ed blood 20:20 eosinop hil count Automat = 1.3 % 0.1-12. complet ed 017 0 ed blood 20:20 eosinop hils/10 0 leukocy t Blood = 8.1 1.8-7.8 complet granulo 017 K/mm3 ed cytes 20:20 automat ed count (numb Granulo = 66.3 37.0-80 complet cyte 017 % .0 ed percent 20:20 age Blood = 30.0 37.0-47 complet hematoc 017 % .0 ed rit 20:20 (volume fractio n) Blood = 9.6 12.2-16 complet hemoglo 017 g/dL .2 ed bin 20:20 measure ment (mass/v olum Absolut = 3.2 0.7-4.5 complet e 017 K/mm3 ed lymphoc 20:20 yte count Lymphoc = 26.0 10-50.0 complet yte 017 % ed count, 20:20 blood, automat ed Mean = 25.5 27-31.2 complet corpusc 017 pg ed ular 20:20 hemoglo bin ([facility]) determ Automat = 32.0 31.8-35 complet ed 017 g/dl .4 ed erythro 20:20 cyte mean corpusc ular h Automat = 79.8 82.2-97 complet ed 017 fl .8 ed erythro 20:20 cyte mean corpusc ular v Absolut = 0.7 0.1-1.0 complet e 017 K/mm3 ed monocyt 20:20 e count Norman % = 5.9 % 1.7-9.3 complet 017 ed 20:20 Automat 11-18-2 = 9.0 7.4-10. complet ed 017 fl 4 ed blood 20:20 platele t mean volume rika Blood = 565 142-424 complet platele 017 K/mm3 ed t count 20:20 Red = 3.75 4.2-5.4 complet blood 017 M/mm3 ed cell 20:20 count Automat = 17.2 11.5-17 complet ed 017 % .5 ed erythro 20:20 cyte distrib ution width Blood = 12.3 4.8-10. complet leukocy 017 K/MM3 8 ed brynn 20:20 count (number /volume ) Amylase ser/plas (05-10-2017 20:20) Amylase 2 = 73 25-115 complet 017 U/L ed ser/trinh 20:20 s Comprehensive metabolic panel (05-10-2017 20:20) Serum 05-10-2 = 0.5 1.1-1.8 complet or 017 ed plasma 20:20 albumin /globul in mass ra Serum 2 = 2.4 3.4-5.0 complet or 017 gm/dL ed plasma 20:20 albumin measure ment (mas Serum 05-10-2 = 109 46-116 complet or 017 U/L ed plasma 20:20 alkalin e phospha tase rika Serum 2 = 0.2 0.2-1.0 complet or 017 mg/dL ed plasma 20:20 total bilirub in measure m Serum 05-10-2 = 33 7-18 complet or 017 mg/dL ed plasma 20:20 urea nitroge n measure men Serum 05-10-2 = 8.7 8.5-10. complet or 017 mg/dL 1 ed plasma 20:20 calcium measure ment (mas Serum 05-10-2 = 102 98-107 complet or 017 mmoL/L ed plasma 20:20 chlorid e measure ment (mo Carbon = 27 21.0-32 complet dioxide 017 mmoL/L .0 ed 20:20 measure ment Serum 2 = 1.8 0.55-1. complet or 017 mg/dL 02 ed plasma 20:20 creatin ine measure ment ( Estimat = 31 50-200 complet ion of 017 ML/MIN ed creatin 20:20 ine renal clearan ce Estimat = 28 59- complet ed 017 ML/MIN ed glomeru 20:20 lar filtrat ion rate (GF Comment: REFERENCE RANGE: >60 ML/MIN/1.73 SQUARE METERS Comment: If this patient is -Citizen Of [place], then multiply the Comment: result by 1.210. Serum = 5.3 1.3-3.2 complet globuli 017 gm/dL ed n 20:20 measure ment (mass/v olume) Serum = 141 74-106 complet or 017 mg/dL ed plasma 20:20 glucose measure ment (mas Serum = 4.3 3.5-5.1 complet potassi 017 mmoL/L ed um 20:20 measure ment Serum = 137 136-145 complet sodium 017 mmoL/L ed measure 20:20 ment Serum = 21 15-37 complet or 017 U/L ed plasma 20:20 asparta te aminotr ansfera ALT = 14 12-78 complet (SGPT) 017 U/L ed ser/trinh 20:20 s Protein = 7.7 6.4-8.2 complet total 017 gm/dL ed ser/trinh 20:20 s Lipase measurement (05-10-2017 20:20) Lipase = 212 73-393 complet measure 017 U/L ed ment 20:20 Digoxin level (05-10-2017 20:20) Digoxin = 1.13 1.15-2. complet level 017 ng/mL 56 ed 20:20 Whole blood INR measurement (05-10-2017 20:20) Comment: IS PATIENT ON ANTICOAGULANTS? Y Comment: LIST ANTICOAGULANTS: Comment: COUMADIN Comment: PTT RESULTS MUST BE CALLED IF PT ON HEPARIN!!! Y Whole = 1.08 0.9-1.1 complet blood 017 ed INR 20:20 measure ment Comment: INDICATION INR RANGE Comment: Comment: THERAPY FOR DVT, PE, ATRIAL FIB; 2.0 - 3.0 Comment: PROPHYLAXIS FOR VTE Comment: Comment: THERAPY FOR MECHANICAL HEART 2.5 - 3.5 Comment: VALVE; PREVENTION OF SYSTEMIC Comment: EMBOLISM SECONDARY TO AMI Prothro = 11.7 9.4-11. complet mbin 017 SECONDS 8 ed time 20:20 (PT) in platele t poor p Whole blood INR measurement (05-03-2017 07:36) Whole = 6.54 0.9-1.1 complet blood 017 ed INR 07:36 measure ment Comment: NOTIFICATION RESULT Comment: INDICATION INR RANGE Comment: Comment: THERAPY FOR DVT, PE, ATRIAL FIB; 2.0 - 3.0 Comment: PROPHYLAXIS FOR VTE Comment: Comment: THERAPY FOR MECHANICAL HEART 2.5 - 3.5 Comment: VALVE; PREVENTION OF SYSTEMIC Comment: EMBOLISM SECONDARY TO AMI Prothro = 72.0 9.4-11. complet mbin 017 SECONDS 8 ed time 07:36 (PT) in platele t poor p Comment: NOTIFICATION RESULT DIARRHEA PANEL,PCR (04-27-2017 20:00) Stool NOT NOT complet adenovi 017 DETECTE DETECTE ed ely 40 20:00 D NOT and 41 DETECTE antigen D L assay Aeromon NOT NOT complet as 017 DETECTE DETECTE ed salmoni 20:00 D NOT luis carlos DETECTE detecti D L on Astrovi NOT NOT complet ely 017 DETECTE DETECTE ed detecti 20:00 D NOT on DETECTE D L Campylo NOT NOT complet bacter 017 DETECTE DETECTE ed antibod 20:00 D NOT y assay DETECTE D L Stool DETECTE NOT complet Clostri 017 D DETECTE ed dium 20:00 DETECTE diffici D L le A and B toxi Comment: RESULTS CALLED TO: MARGARETTE Ramsey 04/28/17 1838 OKathleen Viera Cryptos NOT NOT complet poridiu 017 DETECTE DETECTE ed m ag 20:00 D NOT detecti DETECTE on D L Cyclosp NOT NOT complet ora 017 DETECTE DETECTE ed cayetan 20:00 D NOT esis DETECTE detecti D L on Escheri NOT NOT complet sarah 017 DETECTE DETECTE ed coli 20:00 D NOT detecti DETECTE on D L Escheri NOT NOT complet sarah 017 DETECTE DETECTE ed coli 20:00 D NOT Shiga-l DETECTE kayley D L toxin 1 assa Escheri NOT NOT complet sarah 017 DETECTE DETECTE ed coli 20:00 D NOT O157 DETECTE stool D L culture Entamoe NOT NOT complet ba 017 DETECTE DETECTE ed histoly 20:00 D NOT shiva DETECTE detecti D L on Stool NOT NOT complet Giardia 017 DETECTE DETECTE ed 20:00 D NOT lamblia DETECTE D L antigen detecti on Stool DETECTE NOT complet norovir 017 D DETECTE ed us 20:00 DETECTE assay D L Stool NOT NOT complet Plesiom 017 DETECTE DETECTE ed onas 20:00 D NOT shigell DETECTE oides D L DNA detec Rotavir NOT NOT complet us RNA 017 DETECTE DETECTE ed detecti 20:00 D NOT on by DETECTE probe D L and tar Salmone NOT NOT complet lla 017 DETECTE DETECTE ed species 20:00 D NOT DNA DETECTE detecti D L on by prob Caliciv NOT NOT complet irus ID 017 DETECTE DETECTE ed 20:00 D NOT DETECTE D L E coli NOT NOT complet detecti 017 DETECTE DETECTE ed on 20:00 D NOT DETECTE D L Escheri NOT NOT complet sarah 017 DETECTE DETECTE ed coli 20:00 D NOT shiga-l DETECTE kayley D L toxin STX1 a Vibrio NOT NOT complet cholera 017 DETECTE DETECTE ed e DNA 20:00 D NOT detecti DETECTE on by D L probe a Vibrio NOT NOT complet species 017 DETECTE DETECTE ed 20:00 D NOT nucleic DETECTE acid D L assay by PCR Stool NOT NOT complet Vibrio 017 DETECTE DETECTE ed species 20:00 D NOT DETECTE identif D L ication by o Whole blood INR measurement (04-20-2017) Whole = 2.49 0.9-1.1 complet blood 017 ed INR measure ment Comment: INDICATION INR RANGE Comment: Comment: THERAPY FOR DVT, PE, ATRIAL FIB; 2.0 - 3.0 Comment: PROPHYLAXIS FOR VTE Comment: Comment: THERAPY FOR MECHANICAL HEART 2.5 - 3.5 Comment: VALVE; PREVENTION OF SYSTEMIC Comment: EMBOLISM SECONDARY TO AMI Prothro = 27.2 9.4-11. complet mbin 017 SECONDS 8 ed [facility] Whole blood INR measurement (04-14-2017) Whole = 2.12 0.9-1.1 complet blood 017 ed INR measure ment Comment: INDICATION INR RANGE Comment: Comment: THERAPY FOR DVT, PE, ATRIAL FIB; 2.0 - 3.0 Comment: PROPHYLAXIS FOR VTE Comment: Comment: THERAPY FOR MECHANICAL HEART 2.5 - 3.5 Comment: VALVE; PREVENTION OF SYSTEMIC Comment: EMBOLISM SECONDARY TO AMI Prothro = 23.1 9.4-11. complet mbin 017 SECONDS 8 ed [facility] Whole blood INR measurement (04-12-2017 01:00) Whole = 3.72 0.9-1.1 complet blood 017 ed INR 01:00 measure ment Comment: INDICATION INR RANGE Comment: Comment: THERAPY FOR DVT, PE, ATRIAL FIB; 2.0 - 3.0 Comment: PROPHYLAXIS FOR VTE Comment: Comment: THERAPY FOR MECHANICAL HEART 2.5 - 3.5 Comment: VALVE; PREVENTION OF SYSTEMIC Comment: EMBOLISM SECONDARY TO AMI Prothro = 40.7 9.4-11. complet mbin 017 SECONDS 8 ed time 01:00 (PT) in [facility] poor p Drugs identified in Urine by Screen method (02-10-2017) Ampheta NEGATIV <1000 complet mine 017 E ed [Presen ce] in Urine by Screen method NEGATIV <50 complet oxy 017 E ed delta-9 tetrahy drocann abinol [Presen ce] in Unspeci fied specime n Hemoglobin A1c in Blood (12-31-2016 16:01) Hemoglo 10.0 % 0.0% High complet bin A1c 017 - ed in 16:01 7.0% Blood Urinalysis dipstick W Reflex Microscopic panel in Urine (12-30-2016 16:30) Bacteri 4+ O complet a 017 ed [Presen 16:30 ce] in Urine sedimen t by Light microsc opy Leukocy 50-100 O complet brynn 017 wbc/hpf ed [#/volu 16:30 me] in Urine Urinalysis dipstick W Reflex Microscopic panel in Urine (12-30-2016 16:30) Appeara CLOUDY CLEAR complet nce of 017 ed Urine 16:30 Bilirub NEGATIV NEG complet in 017 E ed [Presen 16:30 ce] in Urine by Test strip Erythro 2+ NEG Abnorma complet cytes 017 l ed [Presen 16:30 ce] in Urine Color YELLOW YELLOW complet of 017 ed Urine 16:30 Ketones NEGATIV NEG complet 017 E ed [Presen 16:30 ce] in Urine by Automat ed test strip Mucus 2+ NEG Abnorma complet [Presen 017 l ed ce] in 16:30 Urine sedimen t by Light microsc opy Nitrite NEGATIV NEG complet 017 E ed [Presen 16:30 ce] in Urine by Test strip Urobili 0.2 NEG complet nogen 017 ed [Presen 16:30 ce] in Urine by Test strip Gas panel in Arterial blood (12-15-2016 11:39) Arteria ACCEPTA complet l 017 BLE ed patency 11:39 Wrist artery --pre arteria l punctur e Gas panel in Arterial blood (12-13-2016 09:01) Arteria ACCEPTA complet l 017 BLE ed patency 09:01 Wrist artery --pre arteria l punctur e SOURCE R complet 017 RADIAL ed 09:01 Urinalysis dipstick W Reflex Microscopic panel in Urine (12-11-2016 18:10) Bacteri 4+ O complet a 017 ed [Presen 18:10 ce] in Urine sedimen t by Light microsc opy Erythro 10-20 0 complet cytes 017 ed [Presen 18:10 ce] in Urine sedimen t by Light microsc opy Epithel 5-10 0#/hp complet ial 017 f - ed cells.s 18:10 5#/hp quamous f [Presen ce] in Urine sedimen t by Microsc opy high power field Urinalysis dipstick W Reflex Microscopic panel in Urine (12-11-2016 18:10) Appeara CLOUDY CLEAR complet nce of 017 ed Urine 18:10 Bilirub NEGATIV NEG complet in 017 E ed [Presen 18:10 ce] in Urine by Test strip Erythro 3+ NEG Abnorma complet cytes 017 l ed [Presen 18:10 ce] in Urine Color YELLOW YELLOW complet of 017 ed Urine 18:10 Ketones NEGATIV NEG complet 017 E ed [Presen 18:10 ce] in Urine by Automat ed test strip Mucus 3+ NEG Abnorma complet [Presen 017 l ed ce] in 18:10 Urine sedimen t by Light microsc opy Nitrite POSITIV NEG Abnorma complet 017 E l ed [Presen 18:10 ce] in Urine by Test strip Urobili 0.2 NEG complet nogen 017 ed [Presen 18:10 ce] in Urine by Test strip Differential panel, method unspecified - (12-11-2016 17:55) Anisocy 1+ complet tosis 017 ed [Presen 17:55 ce] in Blood LYMPH 22 % 10% - Normal complet 017 50% ed 17:55 Platele NORMAL complet ts 017 ed [Presen 17:55 ce] in Blood by Light microsc opy Urinalysis dipstick W Reflex Microscopic panel in Urine (12-10-2016 10:45) Bacteri 3+ O complet a 017 ed [Presen 10:45 ce] in Urine sedimen t by Light microsc opy Epithel 3-5 0#/hp complet ial 017 f - ed cells.s 10:45 5#/hp quamous f [Presen ce] in Urine sedimen t by Microsc opy high power field Leukocy 12-10- 10-20 O complet brynn 017 wbc/hpf ed [#/volu 10:45 me] in Urine Urinalysis dipstick W Reflex Microscopic panel in Urine (12-10-2016 10:45) Appeara CLEAR CLEAR complet nce of 017 ed Urine 10:45 Bilirub NEGATIV NEG complet in 017 E ed [Presen 10:45 ce] in Urine by Test strip Erythro 3+ NEG Abnorma complet cytes 017 l ed [Presen 10:45 ce] in Urine Color YELLOW YELLOW complet of 017 ed Urine 10:45 Ketones NEGATIV NEG complet 017 E ed [Presen 10:45 ce] in Urine by Automat ed test strip Mucus 2+ NEG Abnorma complet [Presen 017 l ed ce] in 10:45 Urine sedimen t by Light microsc opy Nitrite NEGATIV NEG complet 017 E ed [Presen 10:45 ce] in Urine by Test strip Urobili 0.2 NEG complet nogen 017 ed [Presen 10:45 ce] in Urine by Test strip COMPREHENSIVE METABOLIC PANEL (02-15-2013 18:10) Glucose 67 [...] 013 mmoL/L ed SerPl-s 18:10 Cnc CO2 30 21.0-32 complet SerPl-s 013 mmoL/L .0 ed Cnc 18:10 Calcium 8.9 8.5-10. complet 013 mg/dL 1 ed SerPl-m 18:10 Cnc Prot 7.8 6.4-8.2 complet SerPl-m 013 gm/dL ed Cnc 18:10 Albumin 3.2 3.4-5.0 complet 013 gm/dL ed SerPl-m 18:10 Cnc Globuli 4.6 1.3-3.2 complet n 013 gm/dL ed Ser-mCn 18:10 c Albumin 0.7 UNK 1.1-1.8 complet /Glob 013 ed SerPl-m 18:10 Rto Bilirub 0.5 0.2-1.0 complet 013 mg/dL ed SerPl-m 18:10 Cnc AST 14 U/L 15-37 complet SerPl-c 013 ed Cnc 18:10 ALT 31 U/L 30-65 complet SerPl-c 013 ed Cnc 18:10 ALP 124 U/L 50-136 complet SerPl-c 013 ed Cnc 18:10 PROTIME/INR (02-15-2013 18:10) PROTHRO 12.4 9.9-11. complet MBIN 013 SECONDS 6 ed TIME 18:10 INR Bld 1.16 0.9-1.1 complet 013 UNK ed 18:10 Encounters Encounter Start End Date Code Location Performer Type Date Emergency LINA REED (ER) 3 16:19 3 20:12 [facility] GINO
--- OUTSIDE RECORDS SUMMARY | 2017-05-10 22:44 | External Medical Summary Rpt | CCD ---
Author Author , MANOJ Organization MANOJ Address Unknown Phone [email or web address] Care Team Providers Care Renewal Specialist Name Role Phone Galen Marcos MD, Unavailable Unavailable Galen TSAI, Unavailable Unavailable Danielle TSAI Purpose Continuity of Care Document - 02-15-2013 through 2016 Problems Code Diagnosis DOS Provider Status [id number] Chest pain [facility] [id number] Diabetes [facility] type 2 [facility] 462 Sore throat [facility] 786.7 [id number] Chronic [facility] B19.20 UNSPECIFIED VIRAL HEPATITIS C WITHOUT HEPATIC COMA E10.9 TYPE 1 DIABETES MELLITUS WITHOUT COMPLICATIO NS E11.9 TYPE 2 DIABETES MELLITUS WITHOUT COMPLICATIO NS E16.2 HYPOGLYCEMI A, UNSPECIFIED E86.0 DEHYDRATION E87.1 HYPO-OSMOLA LITY AND HYPONATREMI A E87.5 HYPERKALEMI A G89.18 OTHER ACUTE POSTPROCEDU RAL PAIN I21.4 NON-ST ELEVATION (NSTEMI) MYOCARDIAL INFARCTION I25.10 ATHSCL HEART DISEASE OF [place] CORONARY ARTERY W/O ANG PCTRS I48.91 UNSPECIFIED [...] UNSPECIFIED INTRA-ABDOM INAL ORGAN, INIT ENCNTR Z79.01 [facility] (CURRENT) USE OF ANTICOAGULA NTS Z95.2 PRESENCE [...] 017 K/mm3 ed monocyt 20:20 e count Warrick % = 5.9 % 1.7-9.3 complet 017 [...] SQUARE METERS Comment: If this patient is -[place], then multiply the Comment: result by 1.210. [...] 017 SECONDS 8 ed time (PT) in [facility] p Whole blood INR measurement (04-14-2017) Whole [...] 017 SECONDS 8 ed time (PT) in [facility] p Whole blood INR measurement (04-12-2017 01:00) [...] SECONDS 8 ed time 01:00 (PT) in [facility] poor p Drugs identified in [...] LINA REED (ER) 3 16:19 3 20:12 [facility] GINO
--- OUTSIDE RECORDS SUMMARY | 2017-05-10 22:45 | External Medical Summary Rpt | CCD ---
Author Author , MANOJ ARANDA Address Unknown Phone [email or web address] Immunization Name Date Rout CVX Reac Dose Comm Prov Is Faci e tion ent ider Refu lity Give sed n PPV2 07-1 33 0.5 Hist [facility] No [facility] 3 0-20 mL oric 1 1 16 al Info rmat ion - Sour ce Unsp ecif ied
--- OUTSIDE RECORDS SUMMARY | 2017-05-10 22:45 | External Medical Summary Rpt | CCD ---
Author Author , MANOJ ARANDA Address Unknown Phone [email or web address] Immunization Name Date Rout CVX Reac Dose Comm Prov Is Faci e tion ent ider Refu lity Give sed n PPV2 07-1 33 0.5 Hist [facility] No [facility] 3 0-20 mL oric 1 1 16 al Info rmat ion - Sour ce Unsp ecif ied
--- OUTSIDE RECORDS SUMMARY | 2017-05-10 22:48 | External Medical Summary Rpt ---
Author Author [employer], [employer] Address Unknown Phone Unavailable Results INR in Blood by Coagulation assay Observa Value Referen Units Interpr Notes Date tion ce etation Range IS PATIENT ON ANTICOAGULANTS? Y LIST ANTICOAGULANTS: COUMADIN PTT RESULTS MUST BE CALLED IF PT ON HEPARIN!!! Y INR in 0.9 - 1.1 No Normal INDICATIO May 10 Blood by informati N 2016 8:20 Coagulati on in PM on assay source INR data RANGETHER APY FOR DVT, PE, ATRIAL FIB; 2.0 - 3.0PROPHY LAXIS FOR VTETHERAP Y FOR MECHANICA L HEART 2.5 - 3.5VALVE; PREVENTIO N OF SYSTEMICE MBOLISM SECONDARY TO AMI Prothromb 9.4 - SECONDS Normal No May 10 in time 11.8 informati 2016 8:20 (PT) in on in PM Platelet source poor data plasma by Coagulati on assay Digoxin [Mass/volume] in Serum or Plasma Observa Value Referen Units Interpr Notes ti etation Range Digoxin 1.15 - ng/mL Low No May 10 [Mass/vol 2.56 informati 2016 8:20 ume] in on in PM Serum or source Plasma data Amylase [Enzymatic activity/volume] in Serum or Plasma Observa Value Referen Units Interpr Notes ti etation Range Amylase 25 - 115 U/L Normal No May 10 [Enzymati informati 2016 8:20 c on in PM activity/ source volume] data in Serum or Plasma Comprehensive metabolic 2000 panel in Serum or Plasma Observa Value Referen Units Interpr Notes Date ti ce etation Range Albumin/G 1.1 - 1.8 No Low No Apr 18 lobulin informati informati 2016 8:20 [Mass on in on in PM ratio] in source source Serum or data data Plasma Albumin 3.4 - 5.0 gm/dL Low No May 10 [Mass/vol informati 2016 8:20 ume] in on in PM Serum or source Plasma data Alkaline 46 - 116 U/L Normal No May 10 phosphata informati 2016 8:20 se on in PM [Enzymati source c data activity/ volume] in Serum or Plasma Bilirubin 0.2 - 1.0 mg/dL Normal No May 10 .total informati 2016 8:20 [Mass/vol on in PM ume] in source Serum or data Plasma Urea 7 - 18 mg/dL High No May 10 nitrogen informati 2016 8:20 [Mass/vol on in PM ume] in source Serum or data Plasma Calcium 8.5 - mg/dL Normal No May 10 [Mass/vol 10.1 informati 2016 8:20 ume] in on in PM Serum or source Plasma data Chloride 98 - 107 mmoL/L Normal No May 10 [Moles/vo informati 2016 8:20 lume] in on in PM Serum or source Plasma data Carbon 21.0 - mmoL/L Normal No May 10 dioxide, 32.0 informati 2016 8:20 total on in PM [Moles/vo source lume] in data Serum or Plasma Creatinin 0.55 - mg/dL High No May 10 e 1.02 informati 2016 8:20 [Mass/vol on in PM ume] in source Serum or data Plasma Creatinin 50 - 200 ML/MIN Low No May 10 e renal informati 2016 8:20 clearance on in PM source predicted data by Cockcroft -Gault formula Estimated 59- ML/MIN Low REFERENCE May 10 RANGE: 2016 8:20 glomerula >60 PM r ML/MIN/1. filtratio 73 SQUARE n rate METERSIf (GF this patient is -A merican, then multiply theresult by 1.210. Globulin 1.3 - 3.2 gm/dL High No May 10 [Mass/vol informati 2016 8:20 ume] in on in PM Serum source data Glucose 74 - 106 mg/dL High No May 10 [Mass/vol informati 2016 8:20 ume] in on in PM Serum or source Plasma data Potassium 3.5 - 5.1 mmoL/L Normal No May 10 informati 2016 8:20 [Moles/vo on in PM lume] in source Serum or data Plasma Sodium 136 - 145 mmoL/L Normal No May 10 [Moles/vo informati 2016 8:20 lume] in on in PM Serum or source Plasma data Aspartate 15 - 37 U/L Normal No May 102016 8:20 aminotran on in PM sferase source [Enzymati data c activity/ volume] in Serum or Plasma Alanine 12 - 78 U/L Normal No May 10 aminotran 2016 8:20 sferase on in PM [Enzymati source c data activity/ volume] in Serum or Plasma Protein 6.4 - 8.2 gm/dL Normal No May 10 [Mass/vol 2016 8:20 ume] in on in PM Serum or source Plasma data Lipase [Enzymatic activity/volume] in Serum or Plasma Observa Value Referen Units Interpr Notes Date tion ce etation Range Lipase 73 - 393 U/L Normal No May 10 [Enzymati informati 2016 8:20 c on in PM activity/ source volume] data in Serum or Plasma CBC W Auto Differential panel in Blood Observa Value Referen Units Interpr Notes Date tion ce etation Range Basophils 0 - 0.2 K/MM3 Normal No May 102016 8:20 [#/volume on in PM ] in source Blood by data Automated count Basophils 0.1 - 2.0 % Normal No May 10 / informati 2016 8:20 leukocyte on in PM s in source Blood by data Automated count Eosinophi 0.0 - 0.4 K/mm3 Normal No May 10 ls ati 2016 8:20 [#/volume on in PM ] in source Blood by data Automated count Eosinophi 0.1 - % Normal No May 10 ls/100 12.0 informati 2016 8:20 leukocyte on in PM s in source Blood by data Automated count Granulocy 1.8 - 7.8 K/mm3 High No May 10 brynn ati 2016 8:20 [#/volume on in PM ] in source Blood by data Automated count Granulocy 37.0 - % Normal No May 10 brynn/100 80.0 informati 2016 8:20 leukocyte on in PM s in source Blood by data Automated count Hematocri 37.0 - % Low May 10 t [Volume 47.0 ati 2016 8:20 on in PM Fraction] source of Blood data Hemoglobi 12.2 - g/dL Low May 10 n 16.2 informati 2016 8:20 [Mass/vol on in PM ume] in source Blood data Lymphocyt 0.7 - 4.5 K/mm3 Normal No May 10 es informati 2016 8:20 [#/volume on in PM ] in source Unspecifi data ed specimen by Automated count Lymphocyt 10 - 50.0 % Normal No May 10 es informati 2016 8:20 [#/volume on in PM ] in source Unspecifi data ed specimen by Automated count Erythrocy 27 - 31.2 pg Low No May 10 te mean informati 2016 8:20 corpuscul on in PM ar source hemoglobi data n [Entitic mass] Erythrocy 31.8 - g/dl Normal No May 10 te mean 35.4 informati 2016 8:20 corpuscul on in PM ar source hemoglobi data n concentra tion [Mass/vol ume] by Automated count Erythrocy 82.2 - fl Low No May 10 te mean 97.8 informati 2016 8:20 corpuscul on in PM ar volume source [Entitic data volume] by Automated count Monocytes 0.1 - 1.0 K/mm3 Normal No May 10 informati 2016 8:20 [#/volume on in PM ] in source Blood by data Automated count Monocytes 1.7 - 9.3 % Normal No Apr 18 /100 informati 2017 8:20 leukocyte on in PM s in source Blood by data Automated count Platelet 7.4 - fl Normal May 10 mean 10.4 informati 2016 8:20 volume on in PM [Entitic source volume] data in Blood by Automated count Platelets 142 - 424 K/mm3 High No May 10 inform2016 8:20 [#/volume on in PM ] in source Blood data Erythrocy 4.2 - 5.4 M/mm3 Low No May 10 brynn informati 2016 8:20 [#/volume on in PM ] in source Amniotic data fluid Erythrocy 11.5 - % Normal No May 10 te 17.5 informati 2016 8:20 distribut on in PM ion width source [Entitic data volume] by Automated count Leukocyte 4.8 - K/MM3 High No May 10 s 10.8 informati 2016 8:20 [#/volume on in PM ] in source [...] ely DETECTE DETECTE informa informa informa 2017 40+41 D tion in tion in tion in 8:00 PM Ag source source source [Presen data data data ce] in Stool Aeromon NOT NOT No No No Nov 5 as DETECTE DETECTE informa informa informa 2017 salmoni D tion in tion in tion [...] 5 bacter DETECTE DETECTE informa informa informa 2017 sp Ab D tion in tion in [...] sp DNA DETECTE DETECTE informa informa informa 2017 [Identi D tion in tion in tion in 8:00 PM fier] source source source in data data data Unspeci fied specime n by Probe & target amplifi cation method Vibrio NOT NOT No No No Nov 5 sp DETECTE DETECTE informa informa informa 2017 identif D tion in tion in tion in 8:00 PM ied in source source source Stool data data data by Halley m specifi c culture INR in Blood by Coagulation assay Observa Value Referen Units Interpr Notes Date tion ce etation Range INR in 0.9 - 1.1 No High INDICATIO Apr 20 Blood by informati N 2017 Coagulati on in on assay source INR data RANGETHER APY FOR DVT, PE, ATRIAL FIB; 2.0 - 3.0PROPHY LAXIS FOR VTETHERAP Y FOR MECHANICA L HEART 2.5 - 3.5VALVE; PREVENTIO N OF SYSTEMICE MBOLISM SECONDARY TO AMI Prothromb 9.4 - SECONDS High No Apr 20 in time 11.8 informati 2017 (PT) in on in Platelet source poor [...] No Apr 12 in time 11.8 informati 2016 1:00 (PT) in on in AM Platelet [...] 3.5 - 5.1 mmoL/L Normal No Feb 14 informati 2016 3:00 [Moles/vo on in PM lume] in source Serum or data Plasma Sodium 136 - 145 mmoL/L Low No Feb 14 [Moles/vo informati 2016 3:00 lume] in on in PM Serum or source Plasma data Aspartate 15 - 37 U/L Normal No Feb 14 informati 2016 3:00 aminotran on in PM sferase source [Enzymati data c activity/ volume] in Serum or Plasma Alanine 12 - 78 U/L Normal No Feb 14 aminotran informati 2016 3:00 sferase on in PM [Enzymati source c data activity/ volume] in Serum or Plasma Protein 6.4 - 8.2 gm/dL High No Feb 14 [Mass/vol inform2016 3:00 ume] in on in PM Serum or source Plasma data CBC W Auto Differential panel in Blood Observa Value Referen Units Interpr Notes Date tion ce etation Range Basophils 0 - 0.2 K/MM3 Normal No Feb 14 inform2016 3:00 [#/volume on in PM ] in source Blood by data Automated count Basophils 0.1 - 2.0 % Normal No Feb 14 /100 inform2016 3:00 leukocyte on in PM s in source Blood by data Automated count Eosinophi 0.0 - 0.4 K/mm3 Normal No Feb 14 ls 2016 3:00 [#/volume on in PM ] in source Blood by data Automated count Eosinophi 0.1 - % Normal No Feb 14 ls/100 12.0 inform2016 3:00 leukocyte on in PM s in source Blood by data Automated count Granulocy 1.8 - 7.8 K/mm3 Normal No Feb 14 brnyn 2016 3:00 [#/volume on in PM ] in source Blood by data Automated count Granulocy 37.0 - % Normal No Feb 14 brynn/100 80.0 inform2016 3:00 leukocyte on in PM s in source Blood by data Automated count Hematocri 37.0 - % Normal No Feb 14 t [Volume 47.0 inform2016 3:00 on in PM Fraction] source of [...] Low No Feb 14 te mean 35.4 2016 3:00 corpuscul on in PM ar source hemoglobi data n concentra tion [Mass/vol ume] by Automated count Erythrocy 82.2 - fl Normal No Feb 14 te mean 97.8 2016 3:00 corpuscul on in PM ar volume source [Entitic data volume] by Automated count Monocytes 0.1 - 1.0 K/mm3 Normal No Feb 142016 3:00 [#/volume on in PM ] in source Blood by data Automated count Monocytes 1.7 - 9.3 % Normal No Feb 14 /100 inform2016 3:00 leukocyte on in PM s in source Blood by data Automated count Platelet 7.4 - fl Normal No Feb 14 mean 10.4 2016 3:00 volume on in PM [Entitic source volume] data in Blood by Automated count Platelets 142 - 424 K/mm3 Normal No Feb 142016 3:00 [#/volume on in PM ] in source Blood data Erythrocy 4.2 - 5.4 M/mm3 Normal No Feb 14 brynn 2016 3:00 [#/volume on in PM ] in source Amniotic data fluid Erythrocy 11.5 - % Normal No Feb 14 te 17.5 2016 3:00 distribut on in PM ion width source [Entitic data volume] by Automated count Leukocyte 4.8 - K/MM3 Normal No Feb 14 s 10.8 2016 3:00 [#/volume on in PM ] in source Blood data Drugs identified in Urine by Screen method Observa Value Referen Units Interpr Notes Date tion ce etation Range Positive urine drug screen samples are stored for 7 days. Contact the Lab if confirmation of positives is needed. Ampheta NEGATIV <1000 ng/mL No Feb 10 mine E informa informa 2016 [Presen tion in tion in ce] in source source Urine data data by Screen method Barbitura <200 ng/mL No No Feb 10 brynn informati informati 2016 [Mass/vol on in on [...] ng/mL No No Feb 10 informati informati 2016 [Mass/vol on in on [...] High No Jan 03 [Mass/vol informati 2016 6:06 ume] in on [...] INDICATIO Jan 02 Blood by informati N 2017 8:54 Coagulati on in AM on assay [...] mg/dl High No Jan 01 [Mass/vol informati 2017 ume] in on in 12:17 PM Capillary [...] mg/dl High No Jan 01 [Mass/vol informati 2017 6:10 ume] in on in AM Capillary source blood by data Glucomete r Glucose [Mass/volume] in Capillary blood by Glucometer Observa Value Referen Units Interpr Notes Date ti ce etation Range Glucose 70 - 110 mg/dl High No Dec 31 [Mass/vol informati 2017 8:59 ume] in on in PM Capillary source blood by data Glucomete r Glucose [Mass/volume] in Capillary blood by Glucometer Observa Value Referen Units Interpr Notes Date tion ce etation Range Glucose 70 - 110 mg/dl High No Dec 31 [Mass/vol alert informati 2017 4:54 ume] in on in PM Capillary source blood by data Glucomete r Angiotensin converting enzyme [Enzymatic activity/volume] in Serum or Plasma Observa Value Referen Units Interpr Notes Date tion ce etation Range Angiotens 14 - 82 U/L No Performed Dec 31 in informati at: CB 2016 4:01 convertin on in - [facility] PM g enzyme source [Enzymati data [id number] c [address] [place] activity/ Road, volume] Keldron, in Serum [place] or Plasma [id number] Director Of Clinical Applications: Juan Hawk PhD, Phone: [phone] Cobalamin (Vitamin B12) [Mass/volume] in Serum Observa Value Referen Units Interpr Notes Date tion ce etation Range Cobalamin 211 - 946 pg/mL No Performed Dec 31 (Vitamin informati at: 2016 4:01 B12) on in - [facility] PM [Mass/vol source ume] in data [id number] Serum [address] [place], [place] [id number] Director Of Clinical Applications: Juan Hawk PhD, Phone: [phone] Folate [Mass/volume] in Serum or Plasma Observa Value Referen Units Interpr Notes Date tion ce etation Range Folate >3.0 ng/mL No A serum Dec 31 [Mass/vol informati folate 2016 4:01 ume] in on in concentra PM Serum or source tion of Plasma data less than 3.1 ng/mL isconside red to represent clinical deficienc y. Protein Electrophoresis Observa Value Referen Units Interpr Notes Date tion ce etation Range Protein 6.0 - 8.5 g/dL No No Dec 31 [Mass/vol informati informati 2016 4:01 ume] in on in on in PM Serum or source source Plasma data data Please Comment . No No Protein Dec 31 note: informa informa 2017 tion in tion in electro 4:01 PM source source phoresi data data s scan will follow via compute r,mail, or circulation assistant deliver y.Perfo rmed at: - [facility] [id number] [place], [place] [id number] Directo r: Juan acevedo PhD, Phone: [phone] Albumin 2.9 - 4.4 g/dL Low No [...] g/dL High No Dec 31 [Mass/vol informati 2016 4:01 [...] INDICATIO Dec 31 Blood by informati N 2017 2:30 Coagulati on in PM on assay [...] High No Dec 31 [Mass/vol informati 2016 6:36 ume] in on in AM Capillary [...] mmoL/L Normal No Dec 31 [Moles/vo informati 2017 6:28 lume] in on in AM Serum or source Plasma data Carbon 21.0 - mmoL/L Normal No Dec 31 dioxide, 32.0 informati 2017 6:28 total on in AM [Moles/vo source [...] 2.0 % Normal No Dec 31 informati 2017 6:28 leukocyte on in AM s in source Blood by data Automated count Eosinophi 0.0 - 0.4 K/mm3 Normal No Dec 31 ls informati 2016 6:28 [#/volume on in AM ] in source Blood by data Automated count Eosinophi 0.1 - % Normal No Dec 31 ls/100 12.0 informati 2016 6:28 leukocyte on in AM s in source Blood by data Automated count Granulocy 1.8 - 7.8 K/mm3 Normal No Dec 31 brynn informati 2016 [...] Low No Dec 31 n 16.2 informati 2016 6:28 [Mass/vol on in AM ume] in source Blood data Lymphocyt 0.7 - 4.5 K/mm3 Normal No Dec 31 es informati 2016 6:28 [#/volume on in AM ] in source Unspecifi data ed specimen by Automated count Lymphocyt 10 - 50.0 % Normal No Dec 31 es informati 2016 6:28 [#/volume on in AM ] in source Unspecifi data ed specimen by Automated count Erythrocy 27 - 31.2 pg Low No Dec 31 te mean informati 2016 6:28 corpuscul on in AM ar source [...] 1.0 K/mm3 Normal No Dec 31 informati 2016 6:28 [#/volume on in AM ] in source Blood by data Automated count Monocytes 1.7 - 9.3 % Normal No Dec 31 /100 informati 2017 6:28 leukocyte on in AM [...] M/mm3 Normal No Dec 31 brynn informati 2017 6:28 [#/volume on in AM ] in source Amniotic data fluid Erythrocy 11.5 - % Normal No Dec 31 te 17.5 informati 2017 6:28 distribut on in AM ion width [...] No Dec 30 [Mass/vol informati informati informati 2017 4:30 ume] in on in on in [...] mg/dL High No Dec 30 [Mass/vol informati 2017 4:30 ume] in on in PM Urine [...] No Dec 30 of informa informa informa 2017 Urine tion in tion in tion in 4:30 PM source source source data data data Glucose NEG No No No Dec 30 [Mass/vol informati informati informati 2017 4:30 ume] in on in on in [...] No Dec 30 in time 11.8 informati 2017 4:20 (PT) in on in PM Platelet source poor data plasma by Coagulati on assay Cardiac enzymes Observa Value Referen Units Interpr Notes Date tion ce etation Range Creatine 0 - 4.0 U/L Normal No Dec 30 kinase.MB informati 2017 4:20 /Creatine on in PM source kinase.to data temi [Ratio] in Serum or Plasma Creatine 0.0 - 3.6 ng/mL Normal No Dec 30 kinase.MB informati 2017 4:20 on in PM [Mass/vol source ume] [...] gm/dL Low No Dec 30 [Mass/vol informati 2017 4:20 ume] in on in PM Serum [...] Normal No Dec 30 [Mass/vol 10.1 informati 2017 4:20 ume] in on in PM Serum or source Plasma data Chloride 98 - 107 mmoL/L Normal No Dec 30 [Moles/vo informati 2016 4:20 lume] in on in PM Serum or source Plasma data Carbon 21.0 - mmoL/L Normal No Dec 30 dioxide, 32.0 informati 2017 4:20 total on in PM [Moles/vo source lume] in data Serum or Plasma Creatinin 0.55 - mg/dL High No Dec 30 e 1.02 informati 2017 4:20 [Mass/vol on in PM ume] in source Serum or data Plasma Creatinin 50 - 200 ML/MIN Low No Dec 30 e renal informati 2016 4:20 clearance on in PM source predicted data by Cockcroft -Gault formula Estimated 59- ML/MIN Low REFERENCE Dec 30 RANGE: 2017 4:20 glomerula >60 PM r ML/MIN/1. filtratio [...] mmoL/L Low No Dec 30 [Moles/vo informati 2017 4:20 lume] in on in PM Serum [...] 8.2 gm/dL High No Dec 30 [Mass/vol informati [...] 0 - 0.2 K/MM3 Normal No Dec 30 informati 2016 4:20 [#/volume on in PM ] in source Blood by data Automated count Basophils 0.1 - 2.0 % Normal No Dec 30 /100 informati 2017 4:20 leukocyte on in PM s in source Blood by data Automated count Eosinophi 0.0 - 0.4 K/mm3 Normal No Dec 30 ls informati 2016 4:20 [#/volume on in PM [...] Low No Dec 30 t [Volume 47.0 ati 2016 4:20 on in PM Fraction] source [...] - 9.3 % Normal No Dec 30 informati 2016 4:20 leukocyte on in PM s in source Blood by data Automated count Platelet 7.4 - fl Normal No Dec 30 mean 10.4 informati 2016 4:20 volume on in PM [Entitic source volume] data in Blood by Automated count Platelets 142 - 424 K/mm3 High No Dec 30 informati 2016 4:20 [#/volume on in PM ] in source Blood data Erythrocy 4.2 - 5.4 M/mm3 Low No Dec 30 brynn informati 2016 4:20 [...] pg/mL High No Dec 30 tic informati 2016 3:42 peptide B on in PM source [Mass/vol data ume] in Serum or Plasma HCV RNA by PCR, Qn Rfx Miryam Observa Value Referen Units Interpr Notes Date tion ce etation Range Hepatitis . IU/mL No INFCE Dec 20 C virus informati Result 2017 RNA on in Units: [Units/vo source log10 lume] data IU/mLUnab (viral le to load) in calculate Serum or result Plasma by since Probe & non-numer target ic amplifica resultobt tion ained for method component test.09/06:HCV LOG10 previousl y reported as: Test Comment [...] source rmed data data data at: [facility] [id number] [place], [place] [id number] Directo r: Anshu Ram MD, Phone: [phone] Glucose [Mass/volume] in Capillary blood by Glucometer [...] High No Nov 25 [Mass/vol informati 2016 8:08 ume] in on in PM Capillary source blood by data Glucomete r Glucose [Mass/volume] in Capillary blood by Glucometer Observa Value Referen Units Interpr Notes Date ti ce etation Range Glucose 70 - 110 mg/dl High No Dec 15 [Mass/vol alert informati 2016 4:45 ume] in on in PM Capillary source blood by data Glucomete r Glucose [Mass/volume] in Capillary blood by Glucometer Observa Value Referen Units Interpr Notes Date ti ce etation Range Glucose 70 - 110 mg/dl High No Nov 25 [Mass/vol informati 2016 ume] in on in 12:20 PM Capillary source blood by data Glucomete r Basic metabolic panel in Blood Observa Value Referen Units Interpr Notes Date ti ce etation Range Urea 7 - 18 mg/dL High No Dec 15 nitrogen informati 2017 [Mass/vol on in 11:40 AM ume] in source Serum or data Plasma Calcium 8.5 - mg/dL Normal No Nov 25 [Mass/vol 10.1 informati 2017 ume] in on in 11:40 AM Serum or source Plasma data Chloride 98 - 107 mmoL/L Normal No Dec 15 [Moles/vo informati 2017 lume] in on in 11:40 AM Serum or source Plasma data Carbon 21.0 - mmoL/L Normal No Dec 15 dioxide, 32.0 2016 total on in 11:40 AM [Moles/vo source lume] in data Serum or Plasma Creatinin 0.55 - mg/dL High No Dec 15 e 1.02 inform2016 [Mass/vol on in 11:40 AM ume] in source Serum or data Plasma Creatinin 50 - 200 ML/MIN No No Dec 15 e renal informati inform2016 clearance on in on in 11:40 AM [...] - 5.1 mmoL/L Normal No Dec 15 inform2016 [Moles/vo on in 11:40 AM lume] in source Serum or data Plasma Sodium 136 - 145 mmoL/L Normal No Dec 15 [Moles/vo informati 2016 lume] in on in 11:40 AM Serum or source Plasma data Fibrin D-dimer FEU [Mass/volume] in Platelet poor plasma Observa Value Referen Units Interpr Notes Date tion ce etation Range Fibrin 0 - 400 ng/mL Normal The Dec 15 D-dimer D-Dimer 2016 FEU values 11:40 AM [Mass/vol are ume] [...] etation Range Base -2.4-+2.3 MMOL/L Normal No Dec 15 excess in inform2016 Arterial on in 11:39 AM blood source [...] MMOL/L Normal No Dec 15 Arterial 7.45 inform 2017 blood on in 11:39 AM source data Oxygen 80 - 100 MMHG Low alert Dec 15 [Partial 2017 pressure] CRITICAL 11:39 AM in RESULTS Arterial blood RESU LTS CALLED TO: RENUKA [id number] 12/15/16 1146 Juan Diego,Ther evert Oxygen 90 - 100 % Low alert No Dec 15 saturatio informati 2017 n.calcula on in 11:39 [...] High No Dec 15 [Mass/vol informati 2016 6:11 ume] in on in AM Capillary source blood by data Glucomete r Glucose [Mass/volume] in Capillary blood by Glucometer Observa Value Referen Units Interpr Notes Date ti etation Range Glucose 70 - 110 mg/dl High No Nov 24 [Mass/vol alert informati 2017 7:59 ume] in on in PM Capillary source blood by data Glucomete r Glucose [Mass/volume] in Capillary blood by Glucometer Observa Value Referen Units Interpr Notes Date ti ce etation Range Glucose 70 - 110 mg/dl High No Nov 24 [Mass/vol informati 2017 5:01 ume] in on in PM Capillary source blood by data Glucomete r Glucose [Mass/volume] in Capillary blood by Glucometer Observa Value Referen Units Interpr Notes Date ti etation Range Glucose 70 - 110 mg/dl High No Nov 24 [Mass/vol informati 2016 ume] in on in 11:59 AM Capillary source blood by data Glucomete r INR in Blood by Coagulation assay Observa Value Referen Units Interpr Notes Date ti ce etation Range IS PATIENT ON ANTICOAGULANTS? Y LIST ANTICOAGULANTS: WARFARIN INR in 0.9 - 1.1 No High Dec 14 Blood by informati NOTIFICAT 2017 6:20 Coagulati on in ION AM on [...] mg/dl High No Dec 13 [Mass/vol informati 2017 7:55 ume] in on in PM Capillary source blood by data Glucomete r Glucose [Mass/volume] in Capillary blood by Glucometer Observa Value Referen Units Interpr Notes Date ti ce etation Range Glucose 70 - 110 mg/dl High No Dec 13 [Mass/vol informati 2017 4:13 ume] in on in PM Capillary [...] Normal No Dec 13 dioxide, 32.0 informati 2017 9:05 total on in AM [Moles/vo source lume] in data Serum or Plasma Creatinin 0.55 - mg/dL High No Dec 13 e 1.02 informati 2017 9:05 [Mass/vol on in AM ume] in source Serum or data Plasma Creatinin 50 - 200 ML/MIN Low No Dec 13 e renal informati 2017 9:05 clearance on in AM source predicted data by Cockcroft -Gault formula Estimated 59- ML/MIN Low REFERENCE Dec 13 RANGE: 2016 9:05 glomerula >60 AM r ML/MIN/1. filtratio [...] - 0.2 K/MM3 Normal No Dec 13 informati 2016 9:05 [#/volume on in AM [...] Normal No Dec 13 ls/100 12.0 informati 2017 9:05 leukocyte on in AM s in source Blood by data Automated count Granulocy 1.8 - 7.8 K/mm3 High No Dec 13 brynn informati 2017 9:05 [#/volume on in AM ] in source Blood by data Automated count Granulocy 37.0 - % High No Dec 13 brynn/100 80.0 informati 2016 9:05 leukocyte on in AM s in source Blood by data Automated count Hematocri 37.0 - % Low No Dec 13 t [Volume 47.0 informati 2016 9:05 on in AM Fraction] source of Blood data Hemoglobi 12.2 - g/dL Low No Dec 13 n 16.2 informati 2016 9:05 [Mass/vol on in AM ume] in source Blood data Lymphocyt 0.7 - 4.5 K/mm3 Normal No Dec 13 es informati 2016 9:05 [#/volume on in AM ] in source Unspecifi data ed specimen by Automated count Lymphocyt 10 - 50.0 % Normal No Dec 13 es informati 2016 9:05 [#/volume on in AM ] in source Unspecifi data ed specimen by Automated count Erythrocy 27 - 31.2 pg Normal No Dec 13 te mean informati 2016 9:05 corpuscul on in AM ar source hemoglobi data n [Entitic mass] Erythrocy 31.8 - g/dl Low No Dec 13 te mean 35.4 informati 2016 9:05 corpuscul on in AM ar source hemoglobi data n concentra tion [Mass/vol ume] by Automated count Erythrocy 82.2 - fl Normal No Dec 13 te mean 97.8 informati 2016 9:05 corpuscul on in AM ar volume source [Entitic data volume] by Automated count Monocytes 0.1 - 1.0 K/mm3 Normal No Dec 13 informati 2016 9:05 [#/volume on in AM [...] M/mm3 Low No Dec 13 brynn informati 2016 9:05 [#/volume on in AM ] in source Amniotic data fluid Erythrocy 11.5 - % Normal No Dec 13 te 17.5 informati 2016 9:05 distribut on in AM ion width source [Entitic data volume] by Automated count Leukocyte 4.8 - K/MM3 High No Dec 13 s 10.8 informati 2016 9:05 [#/volume on in AM ] in source Blood data Gas panel in Arterial blood Observa Value Referen Units Interpr Notes Date tion ce etation Range Base -2.4-+2.3 MMOL/L Normal No Dec 13 excess in informati 2017 9:01 Arterial on [...] Oxygen 80 - 100 MMHG Low No Dec 13 [Partial informati 2017 9:01 pressure] on in [...] mg/dl High No Dec 13 [Mass/vol informati 2017 8:44 ume] in on [...] 70 - 110 mg/dl High No Nov 22 [Mass/vol informati 2017 8:29 ume] in on in PM Capillary source blood by data Glucomete r Glucose [Mass/volume] in Capillary blood by Glucometer Observa Value Referen Units Interpr Notes Date ti ce etation Range Glucose 70 - 110 mg/dl High No Dec 12 [Mass/vol alert informati 2017 4:02 ume] in on in PM Capillary [...] etation Range Hepatitis <0.01 No No No Dec 12 B virus informati informati informati 2017 9:00 [...] mmoL/L Normal No Dec 12 [Moles/vo informati 2017 6:10 lume] in on in AM Serum [...] mg/dL High No Dec 12 [Mass/vol informati 2016 6:10 ume] in on in AM Serum [...] 0.2 K/MM3 Normal No Dec 12 informati 2016 6:10 [#/volume on in AM ] in source Blood by data Automated count Basophils 0.1 - 2.0 % Normal No Dec 12 /100 informati 2017 6:10 leukocyte on in AM s in source Blood by data Automated count Eosinophi 0.0 - 0.4 K/mm3 Normal No Dec 12 ls informati 2016 6:10 [#/volume on in AM ] in source Blood by data Automated count Eosinophi 0.1 - % Normal No Dec 12 ls/100 12.0 informati 2017 6:10 leukocyte on in AM [...] Interpr Notes Date tion ce etation Range Lactate 0.4 - 2.0 [...] No No Dec 11 nogen informa informa 2016 [Presen tion in tion in 6:10 PM ce] in source source Urine data data by Test strip Leukocyte O wbc/hpf No No Dec 11 s informati informati 2017 6:10 [#/volume on in on in PM ] in source source Urine data data Urinalysis dipstick W Reflex Microscopic panel in Urine Observa Value Referen Units Interpr Notes Date tion ce etation Range Appeara CLOUDY CLEAR No No No Dec 11 nce of informa informa informa 2017 Urine tion in tion in tion in 6:10 PM source source source data data data Bilirub NEGATIV NEG No No No Dec 11 in E informa informa informa 2017 [Presen tion in tion in tion in 6:10 PM ce] in source source source Urine data data data by Test strip Erythro 3+ NEG No Abnorma No Dec 11 cytes informa l informa 2017 [Presen tion in tion in 6:10 PM ce] in source source Urine data data Color YELLOW YELLOW No No No Nov 21 of informa informa informa 2016 Urine tion [...] mg/dL High No Dec 11 [Mass/vol informati 2016 6:10 ume] in on in PM Urine by source Automated data test strip Specific 1.005 - No Normal No Dec 11 gravity 1.030 informati informati 2017 6:10 of Urine on in on in PM source source data data Urobili 0.2 NEG E.U./dL No No Nov 21 nogen informa inform2016 [Presen tion in tion in 6:10 PM ce] in source source Urine data data by Test strip Digoxin [Mass/volume] in Serum or Plasma Observa Value Referen Units Interpr Notes Date tion ce etation Range Digoxin 1.15 - ng/mL Normal No Nov 21 [Mass/vol 2.56 informati 2017 5:55 ume] in on in PM Serum or source Plasma data INR in Blood by Coagulation assay Observa Value Referen Units Interpr Notes Date tion ce etation Range IS PATIENT ON ANTICOAGULANTS? Y LIST ANTICOAGULANTS: WARFARIN INR in 0.9 - 1.1 No High INDICATIO Nov 21 Blood by informati N 2016 5:55 Coagulati [...] Normal No Dec 11 brynn/100 80.0 informati 2016 5:55 leukocyte on in PM s in source Blood by data Automated count Hematocri 37.0 - % Normal No Dec 11 t [Volume 47.0 informati 2016 5:55 on in PM Fraction] source of Blood data Hemoglobi 12.2 - g/dL Low No Dec 11 n 16.2 informati 2016 5:55 [Mass/vol on in PM ume] in source Blood data Lymphocyt 0.7 - 4.5 K/mm3 Normal No Dec 11 es informati 2016 5:55 [#/volume on in PM ] in source Unspecifi data ed specimen by Automated count Lymphocyt 10 - 50.0 % Normal No Dec 11 es informati 2016 5:55 [#/volume on in PM ] in source Unspecifi data ed specimen by Automated count Erythrocy 27 - 31.2 pg Normal No Dec 11 te mean informati 2016 5:55 corpuscul on in PM ar source hemoglobi data n [Entitic mass] Erythrocy 31.8 - g/dl Low No Dec 11 te mean 35.4 informati 2016 5:55 corpuscul on in PM ar source hemoglobi data n concentra tion [Mass/vol ume] by Automated count Erythrocy 82.2 - fl Normal No Dec 11 te mean 97.8 informati 2016 5:55 corpuscul on in PM ar volume source [Entitic data volume] by Automated count Monocytes 0.1 - 1.0 K/mm3 High No Dec 11 informati 2016 5:55 [#/volume on in PM ] in source Blood by data Automated count Monocytes 1.7 - 9.3 % Normal No Nov 21 /100 informati 2016 5:55 leukocyte on in PM s in source Blood by data Automated count Platelet 7.4 - fl Normal No Dec 11 mean 10.4 informati 2016 5:55 volume on in PM [Entitic source volume] data in Blood by Automated count Platelets 142 - 424 K/mm3 No No Dec 11 informati informati 2017 5:55 [#/volume on in on in PM ] in source source Blood data data Erythrocy 4.2 - 5.4 M/mm3 Normal No Dec 11 brynn informati 2016 5:55 [...] Eosinophi 0 - 3 % Normal No Nov 21 ls/100 informati 2017 5:55 leukocyte on in PM s in source Blood by data Manual count LYMPH 22 10 - 50 % Normal No Dec 11 inform2016 tion in 5:55 PM source data Monocytes 2 - 9 % Normal No Remi 21 /100 informati 2017 5:55 leukocyte on [...] % Normal No Dec 11 ls informati 2017 5:55 [#/volume on in PM [...] Low No Dec 11 lobulin informati informati 2017 5:55 [Mass on in on in PM [...] mg/dL Normal No Dec 11 .total informati 2017 5:55 [Mass/vol on in PM ume] in source Serum or data Plasma Urea 7 - 18 mg/dL High No Dec 11 nitrogen informati 2017 5:55 [Mass/vol on in PM ume] in source Serum or data Plasma Calcium 8.5 - mg/dL Normal No Dec 11 [Mass/vol 10.1 informati 2017 5:55 ume] in on in [...] 59- ML/MIN Low REFERENCE Dec 11 RANGE: 2016 5:55 glomerula >60 PM r ML/MIN/1. filtratio 73 SQUARE n rate METERSIf (GF this patient is -A merican, then multiply theresult by 1.210. Globulin 1.3 - 3.2 gm/dL High No Dec 11 [Mass/vol informati 2016 5:55 ume] in on in PM Serum source data Glucose 74 - 106 mg/dL High No Dec 11 [Mass/vol informati 2016 5:55 ume] in on in PM Serum or source Plasma data Potassium 3.5 - 5.1 mmoL/L Normal No Dec 11 inform2016 5:55 [Moles/vo on in PM lume] in [...] No Dec 10 a informa informa informa 2017 [Presen tion in tion in tion in 10:45 ce] in source source source AM Urine data data data sedimen t by Light microsc opy Bilirub NEGATIV NEG No No No Dec 10 in E informa informa informa 2017 [Presen tion in tion in tion in 10:45 ce] in source source source AM Urine data data data by Test strip Erythro 3+ NEG No Abnorma No Nov 20 cytes informa l informa 2017 [Presen tion in tion in 10:45 ce] in source source AM Urine data data Color YELLOW YELLOW No No No Dec 10 of informa informa informa 2017 Urine tion in tion in tion in 10:45 source source source AM data data data Glucose NEG No High No Nov 20 [Mass/vol informati informati 2017 ume] in on in on in 10:45 AM Urine by source source Test data data strip Ketones NEGATIV NEG mg/dL No No Dec 10 E informa informa 2017 [Presen tion in tion in 10:45 ce] in source source AM Urine data data by Automat ed test strip Mucus 2+ NEG No Abnorma No Nov 20 [Presen informa l informa 2017 ce] in tion in tion in 10:45 [...] strip Specific 1.005 - No Normal No Remi 20 gravity 1.030 informati informati 2017 of Urine on in on in 10:45 AM source source data data Epithel 3-5 0 - 5 #/hpf No No Remi 20 ial informa informa 2017 cells.s tion in tion in 10:45 quamous source source AM data data [Presen ce] in Urine sedimen t by Microsc opy high power field Urobili 0.2 NEG E.U./dL No No Dec 10 nogen informa informa 2017 [Presen tion in tion in 10:45 ce] in source source AM Urine data data by Test strip Leukocy [10 O wbc/hpf No No Dec 10 brynn wbc/hpf informa informa 2017 [#/volu ; [...] No Dec 10 of informa informa informa 2017 Urine tion in tion in tion in 10:45 source source source AM data data data Glucose NEG No High No Dec 10 [Mass/vol informati informati 2017 ume] in on in on in 10:45 AM Urine by source source Test data data strip Ketones NEGATIV NEG mg/dL No No Dec 10 E informa informa 2017 [Presen tion in tion in 10:45 ce] in source source AM Urine data data by Automat ed test strip Mucus 2+ NEG No Abnorma No Nov 20 [Presen informa l informa 2016 ce] in [...] Normal No Dec 10 Urine informati informati 2016 on in on in 10:45 AM source source data data Protein NEG mg/dL High No Dec 10 [Mass/vol inform2016 ume] in on in 10:45 AM Urine [...] U/L Normal No November 05 kinase.MB informati 2016 1:20 /Creatine on in PM source kinase.to data temi [Ratio] in Serum or Plasma Creatine 0.0 - 3.6 ng/mL Normal No November 05 kinase.MB informati 2016 1:20 on in PM [Mass/vol source ume] in data Serum or Plasma Creatine 26 - 192 U/L Normal No November 05 kinase informati 2016 1:20 [Enzymati on in PM c source activity/ data volume] in Serum or Plasma Troponin 0.00 - ng/mL Normal No November 05 I.cardiac 0.06 informati 2016 1:20 on in PM [Mass/vol [...] 3.5 - 5.1 mmoL/L Normal No November 05 informati 2016 1:20 [Moles/vo on in PM lume] in source Serum or data Plasma Sodium 136 - 145 mmoL/L Low No November 05 [Moles/vo informati 2016 1:20 lume] in on in PM Serum or source Plasma data Aspartate 15 - 37 U/L Normal No November 05 informati 2016 1:20 aminotran on in PM sferase source [Enzymati data c activity/ volume] in Serum or Plasma Alanine 12 - 78 U/L Normal No November 05 aminotran informati 2016 1:20 sferase on in PM [Enzymati source c data activity/ volume] in Serum or Plasma Protein 6.4 - 8.2 gm/dL High No November 05 [Mass/vol informati [...] 0.1 - 2.0 % Normal No November 05 informati 2016 1:20 leukocyte on in PM s in source Blood by data Automated count Eosinophi 0.0 - 0.4 K/mm3 Normal No November 05 ls informati 2016 1:20 [#/volume on in PM ] in source Blood by data Automated count Eosinophi 0.1 - % Normal No November 05 ls/100 12.0 informati 2016 1:20 leukocyte on in PM s in source Blood by data Automated count Granulocy 1.8 - 7.8 K/mm3 Normal No November 05 brynn ati 2016 1:20 [#/volume on in PM ] in source Blood by data Automated count Granulocy 37.0 - % Normal No November 05 brynn/100 80.0 informati 2016 1:20 leukocyte on in PM s in source Blood by data Automated count Hematocri 37.0 - % Normal No November 05 t [Volume 47.0 informati 2016 1:20 on in PM Fraction] source [...] 50.0 % Normal No November 05 es informati 2016 1:20 [#/volume on in PM ] in source Unspecifi data ed specimen by Automated count Erythrocy 27 - 31.2 pg Normal No November 05 te mean informati 2016 1:20 corpuscul on in PM [...] 0.1 - 1.0 K/mm3 Normal No November 05 inform2016 1:20 [#/volume on in PM ] [...] 142 - 424 K/mm3 High No November 05 inform2016 1:20 [#/volume on in PM ] in source Blood data Erythrocy 4.2 - 5.4 M/mm3 Normal No November 05 brynn 2016 1:20 [...] INDICATIO November 05 Blood by informati N 2016 1:20 Coagulati on in PM on assay source INR data RANGETHER APY FOR DVT, PE, ATRIAL FIB; 2.0 - 3.0PROPHY LAXIS FOR VTETHERAP Y FOR MECHANICA L HEART 2.5 - 3.5VALVE; PREVENTIO N OF SYSTEMICE MBOLISM SECONDARY TO AMI Prothromb 9.4 - SECONDS High No November 05 in time 11.8 informati 2016 1:20 (PT) in on in PM Platelet [...] PM stin time PHARMACIS (aPTT) T: in ER/RAVI. Platelet ES poor 7 1340 plasma by Raman De La Fuente Coagulati Kyara on assay Glucose [Mass/volume] in Capillary blood by Glucometer Observa Value Referen Units Interpr Notes Date tion ce etation Range Glucose 70 - 110 mg/dl High No November 05 [Mass/vol informati 2017 1:13 ume] in on in PM Capillary source blood by data Glucomete r
--- OUTSIDE RECORDS SUMMARY | 2017-05-10 22:48 | External Medical Summary Rpt ---
Author Author [employer] Organization [employer] Address Unknown Phone Unavailable [...] 7.8 K/mm3 Normal No Feb 14 brynn 2016 3:00 [...] [facility] PM g enzyme source [Enzymati data [id number] [place] activity/ Road, volume] [place], in Serum [place] or Plasma [id number] Framing Manager: Juan Hawk PhD, Phone: [phone] Cobalamin (Vitamin B12) [Mass/volume] in Serum Observa Value Referen Units Interpr Notes Date tion ce etation Range Cobalamin 211 - 946 pg/mL No Performed Dec 31 (Vitamin informati at: 2016 4:01 B12) on in - [facility] PM [Mass/vol source ume] in data [id number] Serum [address] [place], [place] [id number] Framing Manager: Juan Hawk PhD, Phone: [phone] Folate [Mass/volume] in Serum or Plasma [...] scan will follow via compute r,mail, or wind farm operations manager deliver y.Perfo rmed at: - [facility] [address] [place], [place] [address]Lab Directo r: Juan acevedo PhD, Phone: [phone] Albumin 2.9 - 4.4 g/dL Low No [...] source rmed data data data at: - [facility] [id number] [place], [place] [address]Lab Directo r: Anshu Ram MD, Phone: [phone] Glucose [Mass/volume] in Capillary blood by Glucometer [...]
[2017-05-10 23:45] LABS: ABO BLOOD TYPE A; RH BLOOD TYPE POSITIVE
[2017-05-10 23:46] LABS: ANTIHUMAN GLOB CROSSMATCH COMPAT
[2017-05-11] VITALS (25 sets, daily range): BP systolic 90–178; BP diastolic 43–97
[2017-05-11 06:16] LABS: LYMPH # 2.5 K/mm3 (0.7-4.5); LYMPH % 24.1 % (10-50.0)
[2017-05-11 06:22] LABS: HEMOGLOBIN 8.3 g/dL (12.2-16.2)
--- NOTE | 2017-05-11 07:11 | HISTORY AND PHYSICAL REPORT ---
Demographics: Admit date: 05/10/17 Chief complaint: lower gi bleeding PRIMARY DIAGNOSIS: GI BLEED Allergies: Coded Allergies: Qauizhb-Ynl-Unk Reductase Inhibitor (05/10/17) gabapentin (SWELLING 05/10/17) History of present illness: History of present illness: this wf was sent from [facility] with acute lower gi bleed- she has known c diff colitis- pt also has mech valves and has had diff with pt/inr level- no chest pain or upper ext vomiting- she has been on po vancomycin-pt with some abd crampy Past medical history: Family HX Family Hx Insignificant Yes Immunization HX Ped.Immunizations UTD Yes DT/Tetanus Unknown Flu 2015-FSN Pneumonia Received In Past TB Test in last year Yes Result Negative General CAD? Yes Angina: Yes WI: Yes Hypertension? Yes Hyperlipidemia? Yes CHF? Yes DVT? No PE? No COPD? Yes Asthma? No Anemia? No GERD? Yes Gastric ulcers? No GI Bleed? Yes Hernia? No Thyroid Problems? No Hypothyroidism? Yes CVA? Yes Seizures? No Diabetes? Yes Insulin Dependent: Yes Insulin Pump: No Home FSBS? Yes Renal Insuffiency? No UTI? Yes Stones? No BPH? No GB Disease: No Nephritic Syndrome? No Asplenia? No Hepatitis? No Sickle Cell Disease? No Arthritis? Yes Migraines? No Cataracts? Yes Glaucoma? No MRSA? No HIV? No TB? No Anxiety? Yes Depression? Yes Cancer? Yes Site: cervical More? Yes Additional hx: Chronic A Fib STENTS heart failure dysphasia Past Surgical HX Previous Surgery?Y BILAT HIP REPLACEMENT SPINAL FUSION L4&5 STENT X4 IN HEART MITRAL/AORTIC VALVES HysterectOMY CARDIAC STENT CARDIAC STENTS 2016 X3 CARDIAC STENTS 2017 Current home meds: Active Scripts Digoxin (Digitek) 0.125 MCG PO DAILY #30 TAB Ref 1 Prov: 06/05/16 CEPHALEXIN (Keflex 500MG Capsule) 500 MG PO Q8H #15 CAP Prov: 01/03/17 ENOXAPARIN SODIUM (Lovenox) 65 MG SC BID #3 INJ Prov: 01/03/17 Famotidine (Famotidine 20MG) 20 MG PO BID #30 TAB Prov: 11/29/13 Reported Medications Lorazepam (Lorazepam 0.5MG) 0.5 MG PO BID CHOLECALCIFEROL (VITAMIN D3) (Vitamin D) 2,000 IU PO DAILY NITROGLYCERIN (Nitrostat) 0.4 MG SL [id number] PRN CHEST PAIN Warfarin Sodium (Warfarin 4MG) 4 MG PO @1700 Pregabalin (Lyrica) 150 MG PO BID Ondansetron Hydrochloride (Ondansetron 4MG U/D TABLET (NON-CHEMO USE)) 4 MG PO Q8HP PRN NAUSEA WARFARIN SOD (Warfarin 3MG) 3 MG PO @1700 CLOPIDOGREL BISULFATE (PLAVIX) 75 MG PO DAILY Fluticasone Propionate (Flonase 50 Mcg Nasal [place]) 1 SPRAY NA DAILY CARBOXYMETHYLCELLULOSE SODIUM (Lubricating Plus) 1 DROP OP QHS TIZANIDINE HCL (Zanaflex) 4 MG PO Q8 DILTIAZEM HCL (Diltiazem 24HR Cd) 240 MG PO DAILY INSULIN NPH HUM/REG INSULIN HM (Novolin 70-30 100 Unit/Ml Vial) 32 UNITS SC DAILY Nicotine (Nicotine Patch) 21 MG TD DAILY Polyethylene Glycol 3350 (Miralax) 17 GM PO DAILY Acetaminophen (Tylenol XS 500MG) 500 MG PO Q4HP PRN PAIN Guaifenesin (Robitussin Plain Syr 200MG/10ML Udc) 10 ML PO Q4HP PRN COUGH POTASSIUM CHL (Potassium Chloride) 10 MEQ PO DAILY Docusate Sodium 250 MG PO DAILY INSULIN GLARGINE (Lantus 3ML Solostar Pen) 35 UNITS SC QHS Furosemide (Furosemide 40MG) 40 MG PO DAILY Paroxetine HCl (Paxil) 40 MG PO DAILY Lorazepam (Lorazepam 0.5MG) 0.5 MG FT TID CLOPIDOGREL BISULFATE (Clopidogrel 75MG) 75 MG PO DAILY DIGOXIN (Digox) 0.125 MG PO DAILY DILTIAZEM HCL (Tiazac) 180 MG PO DAILY Docusate Sodium 100 MG PO DAILYP PRN STOOL SOFTENER Social Hx: Smoking HX Tobacco Yes Type Cigarettes Packs/day 1 1/2 - 2 PACKS Alcohol Alcohol: No Hx of Drug Use Drug Use? No Patien't marital status is Patient's support system is good Review of systems: Constitutional No: fever. Eyes No: drainage. Ears, Nose, Mouth, Throat No ear pain, No epistaxis, No throat pain Respiratory No: cough. Cardiovascular No chest pain, No palpitations, No syncope Gastrointestinal/Abdominal see HPI, diarrhea, poor appetite, poor fluid intake, rectal bleeding Genitourinary No: dysuria, frequency, hesitancy, hematuria. Musculoskeletal No: back pain, joint pain, neck pain. Skin No: rash. Neurological No: headache, seizure disorder. Psychiatric No: no symptoms reported. Exam: Lab data for last 24 hours: Laboratory Tests 05/11/17 0632: POC Glucose 86 05/11/17 0530: Sodium 146 H, Potassium 4.5, Chloride 110 H, Carbon Dioxide 29, BUN 33 H, Creatinine 1.7 H, Estimated Creat Clear 33 L, Estimated GFR (MDRD) 30 L, Glucose 86, Calcium 8.7, WBC 10.2, RBC 3.36 L, Hgb 8.3 L, Hct 27.2 L, MCV 81.0 L, RDW 17.2, Plt Count 471 H, MPV 9.2, Gran % 68.4, Gran # 7.0, Lymphocytes % 24.1, Monocytes % 6.2, Eosinophils % 0.9, Basophils % 0.3, Lymphocytes # 2.5, Monocytes # 0.6, Eosinophils # 0.1, Basophils # 0.0, PUBS MCHC 30.5 L, MCH 24.7 L 05/10/17 2303: Antibody Screen NEGATIVE, Miscellaneous Test POSITIVE 05/10/17 2020: Sodium 137, Potassium 4.3, Chloride 102, Carbon Dioxide 27, BUN 33 H, Creatinine 1.8 H, Estimated Creat Clear 31 L, Estimated GFR (MDRD) 28 L, Glucose 141 H, Calcium 8.7, Total Bilirubin 0.2, AST 21, ALT 14, Alkaline Phosphatase 109, Total Protein 7.7, Albumin 2.4 L, Globulin 5.3 H, Albumin/ Globulin Ratio 0.5 L, Amylase 73, Lipase 212, PT 11.7, INR 1.08, WBC 12.3 H, RBC 3.75 L, Hgb 9.6 L, Hct 30.0 L, MCV 79.8 L, RDW 17.2, Plt Count 565 H, MPV 9.0, Gran % 66.3, Gran # 8.1 H, Lymphocytes % 26.0, Monocytes % 5.9, Eosinophils % 1.3, Basophils % 0.5, Lymphocytes # 3.2, Monocytes # 0.7, Eosinophils # 0.2, Basophils # 0.1, PUBS MCHC 32.0, MCH 25.5 L, Digoxin 1.13 L Admission vital signs: 1ST Vital Signs Result Date Time Pulse Ox 98 05/10 2008 B/P 132/86 05/10 2008 Temp 98.0 05/10 2008 Pulse 101 05/10 2008 Resp 18 05/10 2008 O2 Flow Rate 2 05/10 2249 O2 Delivery ROOM AIR 05/11 0030 Exam General appearance: alert, awake Eyes: PERRLA ENT: dry mucous membranes Neck: no JVD Cardiovascular: regular rate & rhythm, midsystolic click Respiratory: diminished breath sounds ABD: soft, no guarding, no organomegaly Genitourinary: no dysuria Extremities: moves all Musculoskeletal: equal muscle strength Skin: dry Neuro: alert, testing specialist II-XII nml as tested Additional information: pt with episode of bloody diarrhea this am Plan: Problem List 1. Renal insufficiency 2. Colitis due to Clostridium difficile 3. Acute lower GI bleeding 4. hx of atrial fibrillation Status Chronic 5. mechanical valves Status Chronic 6. Atrial fibrillation Status Acute Plan: will require transfusion today at 5181
--- NOTE | 2017-05-11 12:12 | PHARMACY CLINIC NOTE ---
Patient Demographics Patient Demographics Admission date: 05/11/17 Date: 05/11/17 Time: 1211 Allergies Coded Allergies: Kxsovnd-Qxw-Gio Reductase Inhibitor (05/10/17) gabapentin (SWELLING 05/10/17) HEIGHT- FT: 5 IN: 5.00 K.467 VTE General Information Labs: Laboratory Tests 05/11 05/10 052019 Coagulation PT (9.4 - 11.8 SECONDS) 11.7 INR (0.9 - 1.1) 1.08 Hematology Hgb (12.2 - 16.2 g/dL) 8.3 L 9.6 L Hct (37.0 - 47.0 %) 27.2 L 30.0 L Plt Count (142 - 424 K/mm3) 471 H 565 H Disclaimer The following section includes nursing documentation that has been pulled in for pharmacy review. Patient's VTE score: 2 Patient's VTE Risk: VERY LOW RISK Clinical trial participant? No VTE prophylaxis NQF [id number] VTE prophylaxis ordered? Yes Type of prophylaxis/treatment: GILDARDO Bowers at 1211
--- NOTE | 2017-05-11 12:12 | PHARMACY CLINIC NOTE ---
Patient Demographics Patient Demographics Admission date: 05/11/17 Date: 05/11/17 Time: 1211 Allergies Coded Allergies: Ckfmkdu-Thw-Trw Reductase Inhibitor (05/10/17) gabapentin (SWELLING 05/10/17) HEIGHT- FT: 5 IN: 5.00 K.467 VTE General Information Labs: Laboratory Tests 05/11 05/10 052019 Coagulation PT (9.4 - 11.8 SECONDS) 11.7 INR (0.9 - 1.1) 1.08 Hematology Hgb (12.2 - 16.2 g/dL) 8.3 L 9.6 L Hct (37.0 - 47.0 %) 27.2 L 30.0 L Plt Count (142 - 424 K/mm3) 471 H 565 H Disclaimer The following section includes nursing documentation that has been pulled in for pharmacy review. Patient's VTE score: 2 Patient's VTE Risk: VERY LOW RISK Clinical trial participant? No VTE prophylaxis NQF [id number] VTE prophylaxis ordered? Yes Type of prophylaxis/treatment: GILDARDO Bowers at 1211
[2017-05-11] MEDS ORDERED: HUMULIN10 ML SC (15:42)
[2017-05-11] MEDS ORDERED: TRAMADOL 50MG T50 M1 PO (15:47)
[2017-05-11] MEDS ORDERED: VANCOCIN125 MG PO (15:50)
[2017-05-11 16:57] LABS: HEMOGLOBIN 9.6 g/dL (12.2-16.2)
--- NOTE | 2017-05-11 17:10 | RADIOLOGY REPORT PS360 ---
CT ABD PELVIS W/O CONTRAST Ordering Physician: Joaquin Valle MD Patient Age: 66 years: Female HISTORY: POSSIBLE GI BLEED catheter removed 2 weeks ago hematuria unable to control urine TECHNIQUE: Helical CT scans abdomen pelvis with oral and IV contrast utilized. COMPARISON :CT abdomen pelvis 02/29/2016 FINDINGS The lung bases clear.. Nothing definitely acute. Cardiomegaly. Likely coronary stents.. . Abdomen/pelvis. Lack of oral and IV contrast decreases sensitivity. Liver.: No significant findings. Scattered millimeters calcifications. Gallbladder.: Unremarkable. No calcified stones. No biliary ductal dilatation. Pancreas. Noncontrast images unremarkable, stable appearance. Liver. No significant findings. Unchanged. TRACT. No urinary tract obstruction nor significant calculi. Renal vascular calcifications. Bilateral renal cystic masses. RIGHT KIDNEY:..: Mid right kidney slight Enlarging now 2.7 cm x 2.3 cm most likely cyst scant curvilinear calcification at its medial margin coronal image 41.... However is intermediate density the prior ultrasounds from 2012 & 06/2016 support benign cys Larger cyst lower pole right kidney slight increased now up to 4.2 cm. It appeared to be a cyst on previous ultrasound studies from 2016, & 2013. LEFT KIDNEY. On 2015 study there was noted a collection of enlarging lobulated cysts. On today's study: Lower pole left kidney 3.7 cm round mass, intermediate density, most likely cyst, but 28 HU Warrants ultrasound to correlate. Most prominent is a up to 6 cm slightly hyperdense mass or cyst off the anterior lateral aspect mid left kidney. It warrants ultrasound follow-up. Larger & has increased increased in density since 2016.. It measures 38HU density. The more superior left renal cyst seen previously has regressed or no longer evident. ------- Nonspecific nodule anterior to the Left Adrenal. This Nodule again noted and remain fairly stable.. 2.4 x 1.6 cm today similar to 2016 with no definitive change since studies dating back to 2014.- This supports its indolent or benign nature. Atherosclerotic calcification throughout the aorta and iliac arteries.. 9 mm nodule subcutaneous area just to the right umbilicus. Another 5 mm subcutaneous density below this. Nonspecific. Requires correlation. Does This patient subcutaneous injections abdomen? Small ventral hernia defect abdominal wall upper epigastric region unchanged versus prior studies/with mild diastases in this area. There also appears to be some scarring at the suprapubic region likely from previous hysterectomy incision. Pelvis. No pelvic mass or adnexal mass. Uterus removed. Left hip replacement yield streak artifact Large bowel.. Liquid stool is seen throughout the colon including air-fluid levels at the rectum suggesting diarrhea. There is a low-lying cecum with mild/moderate wall thickening at cecum. Suggestive of colitis. Small. Small bowel appears normal caliber and satisfactory. No significant wall thickening. With some undigested food throughout. Spine. A long-standing posterior fusion L4/5 with disc spacer devices at L4/5. Old compression fracture superior L1 again noted, stable with slight posterior displacement superior posterior corner L1 yielding relative spinal stenosis at this level. There is also spinal stenosis most severe at L3/4 instantly noted.. A stable bone graft sites from the pelvis bilateral. IMPRESSION... 1.. Bilateral Renal Cysts:.. No calculi or obstruction At Left kidney, progressive enlargement of now over 6 mm mass/hyperdense cyst. Mid left kidney.. This is increased in size and density since previous study 2016. Would suggest bilateral renal ultrasound to further evaluate these bilateral renal cyst- several which do not meet benign CT criteria on this noncontrast study.. Ultrasound is benefit to help help to further confirm more likely benign cystic nature.. . 2. Liquid stool/diarrhea appearance throughout colon with air-fluid levels.... Mild/moderate wall thickening cecum which may reflect associated inflammation/colitis here. (Note history of Crohn's disease).... No discrete abscess or significant inflammation in this region otherwise, but if symptoms persist follow-up suggested. 3. Other nonacute observations in text.: ... Stable left adrenal region nodule .... Tiny stable ventral hernia upper epigastric region. ... Stable chronic & postsurgical changes lumbar spine. Spinal stenosis most pronounced at L3/4. Stable old compression L1
[2017-05-11 18:04] LABS: ANTIHUMAN GLOB CROSSMATCH COMPAT
[2017-05-12] VITALS (23 sets, daily range): BP systolic 128–185; BP diastolic 62–117
[2017-05-12 07:11] LABS: HEMOGLOBIN 9.9 g/dL (12.2-16.2)
--- NOTE | 2017-05-12 08:50 | ACUTE CARE PROGRESS NOTE (QUA) ---
See Addendum Progress Notes Subjective Date 05/12/17 Time 0849 Note still with gi bleeding Patient/family reports: nausea Nursing reports: bleeding Objective Findings Last VS-Temp:97.1 B/P:144/79 Pulse:149 Resp:20 SaO2:98 OXYGEN Last weight lbs:146 oz:6 K.395 Method:Bed Scales Exam General appearance: awake, drowniness Eyes: anicteric, PERRLA, pale conjunctivae ENT: dry mucous membranes Neck: no JVD Cardiovascular: normal sinus rhythm Respiratory: no respiratory distress ABD: soft Genitourinary: no hematuria, catheter in place Extremities: moves all Musculoskeletal: motor intact Skin: dry Neuro: alert, managing attorney II-XII nml as tested Reviewed: allergies, medications, vital signs, lab results, radiology report Assessment/Plan Problem List 1. Renal insufficiency 2. Colitis due to Clostridium difficile 3. Acute lower GI bleeding 4. hx of atrial fibrillation Status: Chronic 5. mechanical valves Status: Chronic 6. Atrial fibrillation Status: Acute 7. Hyperkalemia Patient condition Guarded Plan: arrange facility transfer This inpt stay is expected to cross 2 MNs from start of care Yes Comments: discussed with dr hernandez and will transfer to as she has sig complicated course at 0958
--- NOTE | 2017-05-12 08:50 | ACUTE CARE PROGRESS NOTE (QUA) ---
See Addendum Progress Notes Subjective Date 05/12/17 Time 0849 Note still with gi bleeding Patient/family reports: nausea Nursing reports: bleeding Objective Findings Last VS-Temp:97.1 B/P:144/79 Pulse:149 Resp:20 SaO2:98 OXYGEN Last weight lbs:146 oz:6 K.395 Method:Bed Scales Exam General appearance: awake, drowniness Eyes: anicteric, PERRLA, pale conjunctivae ENT: dry mucous membranes Neck: no JVD Cardiovascular: normal sinus rhythm Respiratory: no respiratory distress ABD: soft Genitourinary: no hematuria, catheter in place Extremities: moves all Musculoskeletal: motor intact Skin: dry Neuro: alert, information systems security developer II-XII nml as tested Reviewed: allergies, medications, vital signs, lab results, radiology report Assessment/Plan Problem List 1. Renal insufficiency 2. Colitis due to Clostridium difficile 3. Acute lower GI bleeding 4. hx of atrial fibrillation Status: Chronic 5. mechanical valves Status: Chronic 6. Atrial fibrillation Status: Acute 7. Hyperkalemia Patient condition Guarded Plan: arrange facility transfer This inpt stay is expected to cross 2 MNs from start of care Yes Comments: discussed with dr hernandez and will transfer to as she has sig complicated course at 0985
--- NOTE | 2017-05-12 09:49 | DISCHARGE SUMMARY STANDARD ---
Demographics Admit date: 05/10/17 Discharge date: 05/12/17 History of present illness History of present illness this wf was sent from [facility] with acute lower gi bleed- she has known c diff colitis- pt also has mech valves and has had diff with pt/inr level- no chest pain or upper ext vomiting- she has been on po vancomycin-pt with some abd crampy Hospital Course Hospital Course: pt has had difficult course with continued lower gi bleeding and required 4 units transfusion with h/h remaining stable - she has crampy abd pain and has tachycardia at times- no vomiting and today she has increased renal function and eletrolyte abn - will address acute needs and discussed with dr hernandez at as pt has complicated case with her mech valves and persistant bleeding from persumed colitis- as she had positive stool for c diff and [place] virus at [facility] - she has been more lethargic but ox3 - Discharge diagnoses Problem List 1. Renal insufficiency 2. Colitis due to Clostridium difficile 3. Acute lower GI bleeding 4. hx of atrial fibrillation Status Chronic 5. mechanical valves Status Chronic 6. Atrial fibrillation Status Acute 7. Hyperkalemia 8. Anemia Status Chronic 9. Diabetes mellitus Status Chronic Medications Medications: Discharge meds are as noted. Comment: will transfer to Follow up Follow up in office in: 2 WEEKS with: Joaquin Valle MD at 0985
== END 2017-05-12 11:25 | disposition short-term general hospital (02) | DRG 378 ==
LOC: ER 20:04 → 2ND 22:40 → ER 22:40 → 2ND 22:40
PROVIDERS: Emergency Medicine
PROC: 30233N1 Transfusion of Nonautologous Red Blood Cells into Peripheral Vein, Percutaneous Approach (ICD-10-PCS; principal; 2017-05-11)
DX: K92.2 Gastrointestinal hemorrhage, unspecified (principal); A04.72 Enterocolitis due to Clostridium difficile, not specified as recurrent; I48.2 Chronic atrial fibrillation; I50.9 Heart failure, unspecified; A08.11 Acute gastroenteropathy due to Norwalk agent; J44.9 Chronic obstructive pulmonary disease, unspecified; Z79.01 Long term (current) use of anticoagulants; Z72.0 Tobacco use; I10 Essential (primary) hypertension; Z95.2 Presence of prosthetic heart valve; Z95.5 Presence of coronary angioplasty implant and graft
CPT/HCPCS: J2405; J3370; P9016